=== PATIENT | female | born 2000 | race Caucasian/White ===

== ENCOUNTER 2024-03-30 12:02 | Emergency (ER) | payer SELFPAY ==
[2024-03-30 12:08] VITALS: BP 142/98; PULSE 89; TEMP 36.5; O2SAT 99; BMI 22.7
[2024-03-30 12:49] LABS: Basophils Absolute Auto 0.1 10^3/uL (0.0-0.1); Basophils Percent Auto 1.2 % (0.2-2.0); Eosinophils Absolute Auto 0.1 10^3/uL (0.0-0.7); Eosinophils Percent Auto 1.4 % (0.9-7.0); Hematocrit 41.4 % (36.0-48.0); Immature Granulocytes Abs Auto 0.01 10^3/uL (0.00-0.03); Immature Granulocytes Pct Auto 0.2 % (0.0-0.5); Lymphocytes Absolute Auto 0.9 10^3/uL (1.2-3.8); Lymphocytes Percent Auto 18.2 % (20.5-60.0); Mean Corpuscular HGB Conc 33.8 g/dL (29.9-35.2); Mean Corpuscular Hemoglobin 32.2 pg (26.7-34.0); Mean Corpuscular Volume 95.2 fL (81.0-99.0); Mean Platelet Volume 12.8 fL (9.5-13.5); Monocytes Absolute Auto 0.2 10^3/uL (0.3-0.8); Monocytes Percent Auto 3.3 % (1.7-12.0); Neutrophils Absolute Auto 3.7 10^3/uL (1.4-6.5); Neutrophils Percent Auto 75.7 % (43.0-75.0); Platelet Count 175 10^3/uL (150-450); Red Blood Count 4.35 10^6/uL (4.20-5.40); Red Cell Distribution Width 12.5 % (11.0-15.0); White Blood Count 4.8 10^3/uL (4.0-11.0)
[2024-03-30] MEDS: PROMETHAZINE HCL 12.5 MG in 0.9 % SODIUM CHLORIDE 50 ML 202 MG IV ×2 (12:52→13:36)
[2024-03-30] MEDS: ONDANSETRON PF 4 MG/2 ML VIAL IV (12:54)
[2024-03-30 13:01] LABS: Alanine Aminotransferase 22 U/L (14-59); Albumin Globulin Ratio 1.3; Albumin Level 4.5 g/dL (3.4-5.0); Alkaline Phosphatase 51 U/L (46-116); Anion Gap 14.4; Aspartate Amino Transferase 14 U/L (15-37); BUN Creatinine Ratio 11.9; Bilirubin Total 0.4 mg/dL (0.2-1.0); Calcium 8.8 mg/dL (8.5-10.1); Carbon Dioxide 23.1 mmol/L (21.0-32.0); Chloride 105 mmol/L (98-107); Estimated GFR (African America >60 (>=60); Estimated GFR (Non-African Ame >60 (>=60); Globulin 3.4 g/dL; Glucose 114 mg/dL (74-106); Potassium 3.5 mmol/L (3.5-5.1); Sodium 139 mmol/L (136-145); Total Protein 7.9 g/dL (6.4-8.2)
[2024-03-30] MEDS: 0.9 % SODIUM CHLORIDE 1,000 ML 999 ML IV (13:20)
[2024-03-30] MEDS: HYDROMORPHONE HCL 0.5 MG/0.5 ML SYRINGE IV (13:37)
[2024-03-30 14:01] LABS: Bilirubin Urine NEGATIVE (NEGATIVE); Blood Urine NEGATIVE (NEGATIVE); Clarity Urine CLEAR (CLEAR); Color Urine YELLOW (YELLOW); Glucose Urine UA NEGATIVE (NEGATIVE); Ketones Urine 15 mg/dL (NEGATIVE); Leukocyte Esterase Urine NEGATIVE (NEGATIVE); Nitrite Urine NEGATIVE (NEGATIVE); Protein Urine NEGATIVE (NEG/TRACE); Urobilinogen Urine 0.2 EU/dL (0.2-1.0); pH Urine 7.5 (5.0-9.0)
[2024-03-30 14:03] LABS: Urine Microscopic Indicated NO
[2024-03-30 14:04] LABS: HCG Qualitative Urine* NEGATIVE (NEGATIVE)
--- NOTE | 2024-03-30 14:50 | ED.GENADUL1 ---
HPI HPI - General Adult General Chief complaint: Abdominal Pain Stated complaint: VOMITING Time Seen by Provider: 03/30/24 12:19 Source: patient Mode of arrival: walk-in Limitations: no limitations History of Present Illness HPI narrative: This patient is here with her mother complaining of onset of abdominal pain nausea vomiting and diarrhea. Symptoms started today. She did eat some [place] food yesterday but was fine all evening. No other household or family members or friends ate the same food. She has not had fever. She has not been using any antibiotics recently. She has not had travel history. She does not think she is . She is not having urinary symptoms such as burning frequency urgency or dysuria. She has no history of gallbladder problems. She has not had past surgical history to the abdomen. She is otherwise healthy is not on any current medications. Related Data Home Medications ?Medication ?Instructions ?Recorded ?Confirmed No Known Home Medications 03/30/24 03/30/24 Allergies Allergy/AdvReac Type Severity Reaction Status Date / Time No Known Drug Allergies Allergy Verified 03/30/24 12:08 Opioid HPI Opioid Management Most Recent Opioid Data: Last ED Pain Assessment 03/30/24 12:25 Exam Narrative Exam Narrative: Awake alert uncomfortable. Examining her abdomen there is good bowel sounds in all quadrants. Beaulieu sign is negative there is no tenderness at McBurney's point there is no guarding rebound rigidity or peritoneal findings. HEENT shows no evidence of scleral icterus or anemia. Neurological examination is normal. Cardiorespiratory system is normal. Constitutional Vital Signs, click to edit/add: Last Vital Signs Temp 97.7 F 03/30/24 12:08 Pulse 89 03/30/24 12:08 Resp 18 03/30/24 12:08 BP 142/98 H 03/30/24 12:08 Pulse Ox 99 03/30/24 12:08 O2 Del Method Room Air 03/30/24 12:08 Course Vital Signs Vital signs: Vital Signs Temperature 97.7 F 03/30/24 12:08 Pulse Rate 89 03/30/24 12:08 Respiratory Rate 18 03/30/24 12:08 Blood Pressure 142/98 H 03/30/24 12:08 Pulse Oximetry 99 03/30/24 12:08 Oxygen Delivery Method Room Air 03/30/24 12:08 Temperature 97.7 F 03/30/24 12:08 Pulse Rate 89 03/30/24 12:08 Respiratory Rate 18 03/30/24 12:08 Blood Pressure 142/98 H 03/30/24 12:08 Pulse Oximetry 99 03/30/24 12:08 Oxygen Delivery Method Room Air 03/30/24 12:08 Medical Decision Making MDM Narrative Medical decision making narrative: Patient presents with simultaneous onset of vomiting and diarrhea. Findings are consistent with either foodborne illness or viral enteritis. She was treated for symptomatology and had very very good results here in the ER. She will be discharged for outpatient management. Lab Data Labs: Lab Results 03/30/24 03/30/24 Range/Units 12:23 12:25 WBC 4.8 (4.0-11.0) 10^3/uL RBC 4.35 (4.20-5.40) 10^6/uL Hgb 14.0 (12.0-16.0) g/dL Hct 41.4 (36.0-48.0) % MCV 95.2 (81.0-99.0) fL MCH 32.2 (26.7-34.0) pg MCHC 33.8 (29.9-35.2) g/dL RDW 12.5 (11.0-15.0) % Plt Count 175 (150-450) 10^3/uL MPV 12.8 (9.5-13.5) fL Neut % (Auto) 75.7 H (43.0-75.0) % Lymph % (Auto) 18.2 L (20.5-60.0) % Tripp % (Auto) 3.3 (1.7-12.0) % Eos % (Auto) 1.4 (0.9-7.0) % Baso % (Auto) 1.2 (0.2-2.0) % Neut # (Auto) 3.7 (1.4-6.5) 10^3/uL Lymph # (Auto) 0.9 L (1.2-3.8) 10^3/uL Tripp # (Auto) 0.2 L (0.3-0.8) 10^3/uL Eos # (Auto) 0.1 (0.0-0.7) 10^3/uL Baso # (Auto) 0.1 (0.0-0.1) 10^3/uL Abs Immat Gran (auto) 0.01 (0.00-0.03) 10^3/uL Imm/Tot Granulo (auto) 0.2 (0.0-0.5) % Sodium 139 (136-145) mmol/L Potassium 3.5 (3.5-5.1) mmol/L Chloride 105 (98-107) mmol/L Carbon Dioxide 23.1 (21.0-32.0) mmol/L Anion Gap 14.4 BUN 10.0 (7.0-18.0) mg/dL Creatinine 0.84 (0.55-1.02) mg/dL Est GFR ( Amer) >60 (>=60) Est GFR (Non-Af Amer) >60 (>=60) BUN/Creatinine Ratio 11.9 Glucose 114 H (74-106) mg/dL Calcium 8.8 (8.5-10.1) mg/dL Total Bilirubin 0.4 (0.2-1.0) mg/dL AST 14 L (15-37) U/L ALT 22 (14-59) U/L Alkaline Phosphatase 51 (46-116) U/L Total Protein 7.9 (6.4-8.2) g/dL Albumin 4.5 (3.4-5.0) g/dL Globulin 3.4 g/dL Albumin/Globulin Ratio 1.3 Urine Color Yellow (YELLOW) Urine Clarity Clear (CLEAR) Urine pH 7.5 (5.0-9.0) Ur Specific [place] 1.020 (1.005-1.025) Urine Protein Negative (NEG/TRACE) mg/dL Urine Glucose (UA) Negative (NEGATIVE) mg/dL Urine Ketones 15 A (NEGATIVE) mg/dL Urine Occult Blood Negative (NEGATIVE) Urine Nitrite Negative (NEGATIVE) Urine Bilirubin Negative (NEGATIVE) Urine Urobilinogen 0.2 (0.2-1.0) EU/dL Ur Leukocyte Esterase Negative (NEGATIVE) Urine HCG, Qual Negative (NEGATIVE) Discharge Plan Discharge Stand Alone Forms: Portal Instructions Chief Complaint: Abdominal Pain Clinical Impression: Gastroenteritis Patient Disposition: Home, Self-Care Time of Disposition Decision: 14:53 Prescriptions / Home Meds: No Action No Known Home Medications Print Language: Croatian Additional Instructions: Clear fluids only for the next 24 hours, slowly resume normal diet. May use [id number] Imodium and Zofran Referrals: Dahlia Tate [employer] [employer] [Primary Care Provider] - 1 week
== END 2024-03-30 15:09 | disposition home or self-care (01) ==
PROVIDERS: Emergency Provider Emergency Medicine Emergency Medical Services; PCP Nurse Practitioner
DX: K52.9 Noninfective gastroenteritis and colitis, unspecified (principal)
CPT/HCPCS: 36415; 80053; 81003; 84703; 85025; 96361; 96365; 96375; 99284; J1170

== ENCOUNTER 2024-07-01 11:38 | Emergency (ER) | payer OTHER, SELFPAY ==
--- OUTSIDE RECORDS SUMMARY | 2024-07-01 11:43 | XMS_ITS | CCD ---
Author Organization [facility] Inform ion Partnership [facility] Care Team Providers Care Lvn Name Role Phone MATTHEW ALFRED Attending Unavailable MATTHEW ALFRED Consulting Unavailable MATTHEW ALFRED Primary Care Unavailable MATTHEW ALFRED Admitting Unavailable LUIS HOLLAND Attending Unavailable NO PCP, NO PCP Primary Care Unavailable Problems Problem Classification Problem Date Documented Da te Episodic/Chronic Headache; including migraine (1 source) Other migraine, not intractable, without status migrainosus; Translations: [Other migraine, not intractable, without status migrainosus] Onset: 06-27-2024 Chronic Nausea and vomiting (2 sources) Vomiting, unspecified; Translations: [Nausea] Onset: 06-27-2024 Episodic Residual codes; unclassified (1 source) Other specified health status; Translations: [OTHER SPECIFIED HEALTH STATUS] Onset: 07-10-2022 Episodic Unclassified (1 source) Vomitting Onset: 06-27-2024 Results Test Name Value Interpretation Reference Range Facil ity CBC AND AUTO DIFFon 06-27-20 24 ABSOLUTE BASOPHIL 0.1 X10E9/L Normal 0.0-0.2 [facility] Comment on above: Performed By: #### C KEYONA CMP, 3040-3 #### [facility] ([id number]) [address] [place] [address] ABSOLUTE NEUTROPHIL 7.1 X10E9/L High 1.5-6.6 [facility] Comment on above: Performed By: #### C KEYONA, CMP, 3040-3 #### [facility] ([id number]) [address] [place] [address] Basophils/100 WBC (Bld) 0.7 % Normal [facility] Comment on above: Performed By: #### Dipika RAND CMP, 3 #### [facility] ([id number]) [address] [place] [address] 9[address]65 Eosinophils (Bld) [#/Vol] 0.1 10*3/uL Normal 0.0-0.4 [facility] Comment on above: Performed By: #### Dipika RAND CMP, 3039-3 #### [facility] ([id number]) [address] [place] [address] 69699 Eosinophils/100 WBC (Bld) 0.6 % Normal [facility] Comment on above: Performed By: #### Dipika RAND CMP, 3040-01 #### [facility] ([id number]) [address] [place] [address] 59399 Erythrocyte distribution width (RBC) [Ratio] 13.5 % Normal 11.5-15.0 [facility] Comment on above: Performed By: #### Dipika RAND CMP, 3040-01 #### [facility] ([id number]) [address] [place] [address] 77319 Hematocrit (Bld) [Volume fraction] 40.0 % Normal 35-47 [facility] Comment on above: Performed By: #### Dipika RAND CMP, 3040-01 #### [facility] ([id number]) [address] [place] [address] 74663 Hemoglobin (Bld) [Mass/Vol] 13.8 g/dL Normal 11.7-15.5 [facility] Comment on above: Performed By: #### Dipika RAND CMP, 3 #### [facility] ([id number]) [address] [place] [address] 95615 Lymphocytes (Bld) [#/Vol] 1.4 10*3/uL Normal 1.0-3.5 [facility] Comment on above: Performed By: #### Dipika RAND CMP, 3 #### [facility] ([id number]) [address] [place] [address] 32729 Lymphocytes/100 WBC (Bld) 15.3 % Normal [facility] Comment on above: Performed By: #### C KEYONA, CMP, 3039- #### [facility] ([id number]) [address] [place] [address] 28090 MCH (RBC) [Entitic mass] 32.8 pg Normal 27-34 [facility] Comment on above: Performed By: #### Dipika RAND, CMP, 3040-01 #### [facility] ([id number]) [address] [place] [address] 39876 MCHC (RBC) [Mass/Vol] 34.6 g/dL Normal 32-36 [facility] Comment on above: Performed By: #### Dipika RAND, CMP, 3 #### [facility] ([id number]) [address] [place] [address] 22754 MCV (RBC) [Entitic vol] 95 fL Normal 80-100 [facility] Comment on above: Performed By: #### Dipika RAND, CMP, 3040-01 #### [facility] ([id number]) [address] [place] [address] 35765 Monocytes (Bld) [#/Vol] 0.3 10*3/uL Normal 0-0.9 [facility] Comment on above: Performed By: #### Dipika RAND, CMP, 3 #### [facility] ([id number]) [address] [place] [address] 69072 Monocytes/100 WBC (Bld) 3.0 % Normal [facility] Comment on above: Performed By: #### Dipika RAND, CMP, 3 #### [facility] ([id number]) [address] [place] [address] 80139 Neutrophils/100 WBC (Bld) 80.4 % Normal [facility] Comment on above: Performed By: #### Dipika RAND CMP, 3039-3 #### [facility] ([id number]) [address] [place] [address] 52372 Platelet mean volume (Bld) [Entitic vol] 11.0 fL Normal 7-12 [facility] Comment on above: Performed By: #### Dipika RAND CMP, 3 #### [facility] ([id number]) [address] [place] [address] 85476 Platelets (Bld) [#/Vol] 204 10*3/uL Normal 150-450 [facility] Comment on above: Performed By: #### Dipika RAND CMP, 3 #### [facility] ([id number]) [address] [place] [address] 97510 RBC COUNT 4.22 X10E12/L Normal 3.80-5.20 [facility] Comment on above: Performed By: #### Dipika RAND CMP, 3 #### [facility] ([id number]) [address] [place] [address] 85057 WBC (Bld) [#/Vol] 8.8 10*3/uL Normal 4.0-11.0 [facility] Comment on above: Performed By: #### Dipika RAND CMP, 3 #### [facility] ([id number]) [address] [place] [address] 60151 COMPREHENSIVE METABOLIC PANE Yousuf 06-27-2024 Albumin [Mass/Vol] 5.2 g/dL Normal 3.2-5.3 [facility] Comment on above: Performed By: #### Dipika RAND CMP, 3039-3 #### [facility] ([id number]) [address] [place] [address] 65331 ALP [Catalytic activity/Vol] 41 U/L Normal 39-130 [facility] Comment on above: Performed By: #### C KEYONA CMP, 3 #### [facility] ([id number]) [address] [place] [address] 69601 ALT [Catalytic activity/Vol] 18 U/L Normal 0-31 [facility] Comment on above: Performed By: #### C BCA CMP, 3 #### [facility] ([id number]) [address] [place] [address] 12991 Anion gap [Moles/Vol] 13 mmol/L Normal 5-15 [facility] Comment on above: Performed By: #### Dipika RAND CMP, 3040-01 #### [facility] ([id number]) [address] [place] [address] 68793 AST [Catalytic activity/Vol] 22 U/L Normal 0-41 [facility] Comment on above: Performed By: #### C BCA, CMP, 3040-01 #### [facility] ([id number]) [address] [place] [address] 69581 Bilirubin [Mass/Vol] 0.8 mg/dL Normal 0.3-1.2 [facility] Comment on above: Performed By: #### Dipika BCA, CMP, 3040-01 #### [facility] ([id number]) [address] [place] [address] 51133 Calcium [Mass/Vol] 9.5 mg/dL Normal 8.5-10.5 [facility] Comment on above: Performed By: #### C BCA, CMP, 3 #### [facility] ([id number]) [address] [place] [address] 83022 Chloride [Moles/Vol] 104 mmol/L Normal 98-109 [facility] Comment on above: Performed By: #### Dipika BCA, CMP, 3040-3 #### [facility] ([id number]) [address] [place] [address] 37143 CO2 [Moles/Vol] 19 mmol/L Low 22-32 [facility] Comment on above: Performed By: #### C SARAH RAND, 3039-3 #### [facility] ([id number]) [address] [place] [address] 43733 Creatinine [Mass/Vol] 0.87 mg/dL Normal 0.40-1.00 [facility] Comment on above: Result Comment: METH OD TRACEABLE TO IDMS STANDARD Performed By: #### C SARAH RAND, 3040-01 #### [facility] ([id number]) [address] [place] [address] 44949 eGFR (CKD-EPI) NON-RACE DEPENDENT >90 Normal >59 [facility] Comment on above: Result Comment: Reported eGFR is based on the CKD-EPI 2020 equation that does not use a race coefficient. Performed By: #### C SARAH RAND, 3 #### [facility] ([id number]) [address] [place] [address] 76593 Glucose [Mass/Vol] 129 mg/dL High 65-99 [facility] Comment on above: Performed By: #### C SARAH RAND, 3040-01 #### [facility] ([id number]) [address] [place] [address] 63003 Potassium [Moles/Vol] 3.3 mmol/L Low 3.5-5.0 [facility] Comment on above: Performed By: #### C SARAH RAND, 3 #### [facility] ([id number]) [address] [place] [address] 97716 Protein [Mass/Vol] 8.1 g/dL High 6.0-8.0 [facility] Comment on above: Performed By: #### C SARAH RAND, 3039-3 #### [facility] ([id number]) [address] [place] [address] 72145 Sodium [Moles/Vol] 136 mmol/L Normal 134-146 [facility] Comment on above: Performed By: #### C SARAH RAND, 3040-3 #### [facility] ([id number]) [address] [place] [address] 28914 Urea nitrogen [Mass/Vol] 12 mg/dL Normal 5-23 [facility] Comment on above: Performed By: #### C SARAH RAND, 3040-3 #### [facility] ([id number]) [address] [place] [address] 33410 HCG ( test) Ql (U)o n 06-27-2024 Beta HCG ( test) Ql (U) Negative Normal NEG [facility] Comment on above: Performed By: #### 2 106-3 #### [facility] ([id number]) [address] [place] [address] 23900 LIPASEon 06-27-2024 Lipase [Catalytic activity/Vol] 27 U/L Normal 17-40 [facility] Comment on above: Performed By: #### C SARAH RAND, 3040-3 #### [facility] ([id number]) [address] [place] [address] 46871 URN MACROSCOPIC NURon 2023 BILIRUBIN ROSEANNA Negative Normal NEG [facility] Comment on above: Performed By: #### N UM #### [facility] ([id number]) [address] [place] [address] [place] [address] BLOOD/HGB ROSEANNA Negative Normal NEG [facility] Comment on above: Performed By: #### N UM #### [facility] ([id number]) [address] [place] [address] 53575 GLUCOSE ROSEANNA Negative Normal NEG [facility] Comment on above: Performed By: #### N UM #### [facility] ([id number]) [address] [place] [address] 96579 KETONES ROSEANNA >=160 Abnormal NEG [facility] Comment on above: Performed By: #### N UM #### [facility] ([id number]) [address] [place] [address] 54480 LEUKOCYTE ESTERASE ROSEANNA Negative Normal NEG [facility] Comment on above: Performed By: #### N UM #### [facility] ([id number]) [address] [place] [address] 40990 NITRITE ROSEANNA Negative Normal NEG [facility] Comment on above: Performed By: #### N UM #### [facility] ([id number]) [address] [place] [address] 16444 PH ROSEANNA 7.5 Normal 5.0-8.5 [facility] Comment on above: Performed By: #### N UM #### [facility] ([id number]) [address] [place] [address] 55689 PROTEIN ROSEANNA Trace Abnormal NEG [facility] Comment on above: Performed By: #### N UM #### [facility] ([id number]) [address] [place] [address] 34302 SPECIFIC GRAVITY ROSEANNA 1.020 Normal 1.003-1.035 [facility] Comment on above: Performed By: #### N UM #### [facility] ([id number]) [address] [place] [address] [place] [address] UROBILINOGEN ROSEANNA 0.2 eu/dL Normal <1.1 [facility] Comment on above: Performed By: #### N UM #### [facility] ([id number]) [address] [place] [address] 82800 HCG-BETA SUBUNIT QUANTon hCG,Beta Subunit,Qnt,Serum <1 Normal [facility] Comment on above: Result Comment: Fema le (Non-) 0 - 5 (Postmenopausal) 0 - 8 . Female () Weeks of Gestation 3 6 - 71 4 10 - 750 5 262 - 0310 6 819 - 05173 7 [phone] [phone] 8 13341 -[phone] 9 50768 -[phone] 10 13276 -[phone] 12 26830 -592169 14 58709 - 92687 15 82469 - 45247 16 6069 - 61608 17 5549 - 25566 18 2333 - 08329 Barbara ECLIA methodology Performed By: #### H CGSUB #### [facility] [address] [place] [address] Dr. Kassy Rincon CBC AUTO DIFFon 07-09-2022 BASO # 0.0 103/ul Normal 0.0-0.1 [facility] Comment on above: Performed By: #### C BC #### [facility] [address] [place] [address] Dr. Kassy Rincon Basophils/100 WBC (Bld) 0.8 % Normal 0.2-2.0 [facility] Comment on above: Performed By: #### C BC #### [facility] [address] [place] [address] Dr. Kassy Rincon EO # 0.1 103/ul Normal 0.0-0.7 [facility] Comment on above: Performed By: #### C BC #### [facility] [address] [place] [address] Dr. Kassy Rincon Eosinophils/100 WBC (Bld) 1.3 % Normal 0.9-7.0 [facility] Comment on above: Performed By: #### C BC #### [facility] [address] [place] [address] Dr. Kassy Rincon Erythrocyte distribution width (RBC) [Ratio] 13.9 % Normal 11.0-15.0 [facility] Comment on above: Performed By: #### C BC #### [facility] [address] [place] [address] Dr. Kassy Rincon Hematocrit (Bld) [Volume fraction] 39.1 % Normal 36.0-48.0 [facility] Comment on above: Performed By: #### C BC #### [facility] [address] [address] [address] Kassy Rincon Hemoglobin (Bld) [Mass/Vol] 12.6 g/dL Normal 12.0-16.0 [facility] Comment on above: Performed By: #### C BC #### [facility] [address] [address] [address] Kassy Rincon IG # 0.01 10e3/ul Normal 0.00-0.03 [facility] Comment on above: Performed By: #### C BC #### [facility] [address] [address] [address] Kassy Rincon IG % 0.3 % Normal 0.0-0.5 [facility] Comment on above: Performed By: #### C BC #### [facility] [address] [place] [address] Dr. Kassy Rincon LYMPH # 1.1 103/ul Critically low 1.2-3.8 [facility] Comment on above: Performed By: #### C BC #### [facility] [address] [address] [address] Kassy Rincon Lymphocytes/100 WBC (Bld) 30.3 % Normal 20.5-60.0 [facility] Comment on above: Performed By: #### C BC #### [facility] [address] [place] [address] Dr. Kassy Rincon MANUAL DIFF REQ NO Normal [facility] Comment on above: Performed By: #### C BC #### [facility] [address] [address] [address] Kassy Rincon MCH (RBC) [Entitic mass] 30.6 pg Normal 26.7-34.0 [facility] Comment on above: Performed By: #### C BC #### [facility] [address] [address] [address] Kassy Rincon MCHC (RBC) [Mass/Vol] 32.2 g/dL Normal 29.9-35.2 [facility] Comment on above: Performed By: #### C BC #### [facility] [address] [address] [address] Kassy Rincon MCV (RBC) [Entitic vol] 94.9 fL Normal 81.0-99.0 [facility] Comment on above: Performed By: #### C BC #### [facility] [address] [address] [address] Kassy Rincon MONO # 0.2 103/ul Critically low 0.3-0.8 [facility] Comment on above: Performed By: #### C BC #### [facility] [address] [address] [address] Kassy Rincon Monocytes/100 WBC (Bld) 6.2 % Normal 1.7-12.0 [facility] Comment on above: Performed By: #### C BC #### [facility] [address] [address] [address] Kassy Rincon NEUT # 2.3 103/ul Normal 1.4-6.5 [facility] Comment on above: Performed By: #### C BC #### [facility] [address] [address] [address] Kassy Rincon Neutrophils/100 WBC (Bld) 61.1 % Normal 43.0-75.0 [facility] Comment on above: Performed By: #### C BC #### [facility] [address] [place] [address] Dr. Kassy Rincon Platelet mean volume (Bld) [Entitic vol] 14.4 fL Critically high 9.5-13.5 [facility] Comment on above: Performed By: #### C BC #### [facility] [address] [place] [address] Dr. Kassy Rincon PLT 218 103/ul Normal 150-450 [facility] Comment on above: Performed By: #### C BC #### [facility] [address] [address] [address] Kassy Rincon RBC 4.12 106/ul Critically low 4.20-5.40 [facility] Comment on above: Performed By: #### C BC #### [facility] [address] [address] [address] Kassy Rincon WBC 3.7 103/ul Critically low 4.0-11.0 [facility] Comment on above: Performed By: #### C BC #### [facility] [address] [address] [address] Kassy Rincon FREE T4on 07-09-2022 Free T4 [Mass/Vol] 0.99 ng/dL Normal 0.76-1.46 [facility] Comment on above: Performed By: #### F T4, VITB12 #### [facility] [address] [address] [address] Kassy Rincon LIPID PROFILEon 07-09-2022 CHOL-HDL RATIO NORM SEE BELOW Normal [facility] Comment on above: Result Comment: 3.3 - 4.4 LOW RISK 4.4 - 7.1 AVERAGE RISK 7.1 - 11.0 MODERATE RISK >11.0 HIGH RISK Performed By: #### T SH, LIPID, CMP #### [facility] [address] [place] [address] Dr. Kassy Rincon Cholesterol [Mass/Vol] 144 mg/dL Normal <=200 [facility] Comment on above: Performed By: #### T SH, LIPID, CMP #### [facility] [address] [place] [address] Dr. Kassy Rincon Cholesterol in HDL [Mass/Vol] 59 mg/dL Normal 40-60 [facility] Comment on above: Performed By: #### T SH, LIPID, CMP #### [facility] [address] [address] [address] Kassy Rincon Cholesterol in LDL [Mass/Vol] 75.2 mg/dL Normal [facility] Comment on above: Performed By: #### T SH, LIPID, CMP #### [facility] [address] [address] [address] Kassy Rincon Cholesterol.total/C holesterol in HDL [Mass ratio] 2.4 {ratio} Normal [facility] Comment on above: Performed By: #### T SH, LIPID, CMP #### [facility] [address] [address] [address] Kassy Rincon HDL NORMAL > or = 60 mg/dl - LOW CARDIOVASCULAR RISK <40 mg/dl - HIGH CARDIOVASCULAR RISK Normal [facility] Comment on above: Performed By: #### T DAVONTE, LIPID, CMP #### [facility] [address] [address] [address] Kassy Rincon LDL CALC NORMAL SEE BELOW Normal [facility] Comment on above: Result Comment: <100 mg/dl OPTIMAL 100 - 129 mg/dl NEAR OR ABOVE OPTIMAL 130 - 159 mg/dl BORDERLINE HIGH 160 - 189 mg/dl HIGH >190 mg/dl VERY HIGH Performed By: #### T DAVONTE, LIPID, CMP #### [facility] [address] [place] [address] Dr. Kassy Rincon Triglyceride [Mass/Vol] 49 mg/dL Normal <=150 [facility] Comment on above: Performed By: #### T DAVONTE, LIPID, CMP #### [facility] [address] [place] [address] Dr. Kassy Rincon VLDL CALC 9.8 mg/dL Normal [facility] Comment on above: Performed By: #### T DAVONTE, LIPID, CMP #### [facility] [address] [place] [address] Dr. Kassy Rincon PROF 14(COMP METB)on 022 Albumin [Mass/Vol] 4.0 g/dL Normal 3.4-5.0 [facility] Comment on above: Performed By: #### T DAVONTE, LIPID, CMP #### [facility] [address] [place] [address] Dr. Kassy Rincon Albumin/Globulin [Mass ratio] 1.3 {ratio} Normal [facility] Comment on above: Performed By: #### T DAVONTE, LIPID, CMP #### [facility] [address] [place] [address] Dr. Kassy Rincon ALP [Catalytic activity/Vol] 53 U/L Normal 46-116 [facility] Comment on above: Performed By: #### T SH, LIPID, CMP #### [facility] [address] [place] [address] Dr. Kassy Rincon ALT [Catalytic activity/Vol] 21 U/L Normal 14-59 [facility] Comment on above: Performed By: #### T DAVONTE, LIPID, CMP #### [facility] [address] [place] [address] Dr. Kassy Rincon Anion gap [Moles/Vol] 14.1 mmol/L Normal [facility] Comment on above: Performed By: #### T DAVONTE, LIPID, CMP #### [facility] [address] [place] [address] Dr. Kassy Rincon AST [Catalytic activity/Vol] 18 U/L Normal 15-37 [facility] Comment on above: Performed By: #### T DAVONTE LIPID, CMP #### [facility] [address] [place] [address] Dr. Kassy Rincon Bilirubin [Mass/Vol] 0.4 mg/dL Normal 0.2-1.0 [facility] Comment on above: Performed By: #### T DAVONTE LIPID, CMP #### [facility] [address] [place] [address] Dr. Kassy Rincon Calcium [Mass/Vol] 8.9 mg/dL Normal 8.5-10.1 [facility] Comment on above: Performed By: #### T DAVONTE LIPID, CMP #### [facility] [address] [place] [address] Dr. Kassy Rincon Chloride [Moles/Vol] 102 mmol/L Normal 98-107 [facility] Comment on above: Performed By: #### T DAVONTE, LIPID, CMP #### [facility] [address] [place] [address] Dr. Kassy Rincon CO2 [Moles/Vol] 25.8 mmol/L Normal 21.0-32.0 [facility] Comment on above: Performed By: #### T DAVONTE, LIPID, CMP #### [facility] [address] [place] [address] Dr. Kassy Rincon Creatinine [Mass/Vol] 0.91 mg/dL Normal 0.55-1.02 [facility] Comment on above: Performed By: #### T DAVONTE, LIPID, CMP #### [facility] [address] [address] [address] Kassy Rincon EGFR-AF MALAGASY >60 Normal >=60 [facility] Comment on above: Performed By: #### T SH, LIPID, CMP #### [facility] [address] [address] [address] Kassy Rincon EGFR-NON AF MALAGASY >60 Normal >=60 [facility] Comment on above: Performed By: #### T SH, LIPID, CMP #### [facility] [address] [address] [address] Kassy Rincon Globulin (S) [Mass/Vol] 3.2 g/dL Normal [facility] Comment on above: Performed By: #### T SH, LIPID, CMP #### [facility] [address] [place] [address] Dr. Kassy Rincon Glucose [Mass/Vol] 82 mg/dL Normal 74-[address] [facility] Comment on above: Performed By: #### T SH, LIPID, CMP #### [facility] [address] [place] [address] Dr. Kassy Rincon Potassium [Moles/Vol] 3.9 mmol/L Normal 3.5-5.1 [facility] Comment on above: Performed By: #### T SH, LIPID, CMP #### [facility] [address] [place] [address] Dr. Kassy Rincon Protein [Mass/Vol] 7.2 g/dL Normal 6.4-8.[address] [facility] Comment on above: Performed By: #### T SH, LIPID, CMP #### [facility] [address] [place] [address] Dr. Kassy Rincon Sodium [Moles/Vol] 138 mmol/L Normal 136-[address] [facility] Comment on above: Performed By: #### T SH, LIPID, CMP #### [facility] [address] [place] [address] Dr. Kassy Rincon Urea nitrogen [Mass/Vol] 13.0 mg/dL Normal 7.0-18.0 [facility] Comment on above: Performed By: #### T SH, LIPID, CMP #### [facility] [address] [address] [address] Kassy Rincon Urea nitrogen/Creatinine [Mass ratio] 14.3 mg/mg Normal [facility] Comment on above: Performed By: #### T SH, LIPID, CMP #### [facility] [address] [address] [address] Kassy Rincon TSHon 07-09-2022 TSH 0.321 uIU/mL Critically low 0.358-3.740 [facility] Comment on above: Performed By: #### T SH, LIPID, CMP #### [facility] [address] [place] [address] Dr. Kassy Rincon UA RANDOM W/MICROSCOPICon BACTERIA NONE SEEN Normal NONE SEEN [facility] Comment on above: Performed By: #### U AMIC #### [facility] [address] [place] [address] Dr. Kassy Rincon Bilirubin Ql (U) Negative Normal NEGATIVE The [facility] Comment on above: Performed By: #### U AMIC #### [facility] [address] [place] [address] Dr. Kassy Rincon CAST NONE SEEN Normal NONE SEEN [facility] Comment on above: Performed By: #### U AMIC #### [facility] [address] [place] [address] Dr. Kassy Rincon Clarity (U) CLEAR Normal CLEAR [facility] Comment on above: Performed By: #### U AMIC #### [facility] [address] [place] [address] Dr. Kassy Rincon Color (U) LT. YELLOW Normal YELLOW [facility] Comment on above: Performed By: #### U AMIC #### [facility] [address] [place] [address] Dr. Kassy Rincon Crystals LM Nom (Urine sed) NONE SEEN Normal NONE SEEN [facility] Comment on above: Performed By: #### U AMIC #### [facility] [address] [place] [address] Dr. Kassy Rincon Epithelial cells LM Ql (Urine sed) FEW Abnormal NONE SEEN /RARE [facility] Comment on above: Performed By: #### U AMIC #### [facility] [address] [address] [address] Kassy Rincon Glucose Ql (U) Negative Normal NEGATIVE [facility] Comment on above: Performed By: #### U AMIC #### [facility] [address] [address] [address] Kassy Rincon Hemoglobin Ql (U) Negative Normal NEGATIVE [facility] Comment on above: Performed By: #### U AMIC #### [facility] [address] [address] [address] Kassy Rincon Ketones Ql (U) Negative Normal NEGATIVE [facility] Comment on above: Performed By: #### U AMIC #### [facility] [address] [address] [address] Kassy Rincon LEUKOCYTES Negative Normal NEGATIVE [facility] Comment on above: Performed By: #### U AMIC #### [facility] [address] [address] [address] Kassy Rincon MUCOUS NONE SEEN Normal NONE SEEN [facility] Comment on above: Performed By: #### U AMIC #### [facility] [address] [address] [address] Kassy Rincon Nitrite Ql (U) Negative Normal NEGATIVE [facility] Comment on above: Performed By: #### U AMIC #### [facility] [address] [address] [address] Kassy Rincon pH (U) 6.0 [pH] Normal 5-9 [facility] Comment on above: Performed By: #### U AMIC #### [facility] [address] [address] [address] Kassy Rincon RBC NONE SEEN Abnormal 0-2 [facility] Comment on above: Performed By: #### U AMIC #### [facility] [address] [place] [address] Dr. Kassy Rincon SPEC GRAVITY <=1.005 Abnormal 1.005-<=1.025 [facility] Comment on above: Performed By: #### U AMIC #### [facility] [address] [address] [address] Kassy Rincon UA PROTEIN Negative Normal NEGATIVE/ TRACE The [facility] Comment on above: Performed By: #### U AMIC #### [facility] [address] [address] [address] Kassy Rincon Urobilinogen Qn (U) 0.2 {Dia'U}/dL Normal 0.2 - 1. 0 [facility] Comment on above: Performed By: #### U AMIC #### [facility] [address] [address] [address] Kassy Rincon WBC 0-2 Abnormal NONE SEEN [facility] Comment on above: Performed By: #### U AMIC #### [facility] [address] [address] [address] Kassy Rincon VITAMIN B12on 07-09-2022 Cobalamin (Vitamin B12) [Mass/Vol] 295.0 pg/mL Normal 193.0-986.0 [facility] Comment on above: Performed By: #### F T4, VITB12 #### [facility] [address] [address] [address] Kassy Rincon Encounters Encounter Date Encounter Type Care Provider Facility Start: 06-27-2024 End: 06-28-2024 Emergency department patient visit LUIS HOLLAND [facility] Start: 07-10-2022 Encounter for genera l adult medical examination without abnormal findings MATTHEW ALFRED [facility] Start: 07-09-2022 End: 07-10-2022 ambulatory MATTHEW ALFRED Facility:[facility] Start: 07-09-2022 End: 07-10-2022 Encounter for general adult medical examination without abnormal findings MATTHEW ALFRED Facility:[facility] Payers Date Payer Category Payer Unknown [id number] 2018 Unknown [id number] 2001 Unknown [id number] 2001 Unknown [id number] 1959 Unknown [id number] Summary Purpose Family History No Family History Records FoundNo Family History Records Found Advance Directives No Advanced Directives Records FoundNo Advanced Directives Records Found Additional Source Comments INFORMATION SOURCE (unrecogn ized section and content) DATE CREATED AUTHOR 07/11/2022 [facility] DATE CREATED AUTHOR 'S CORINNE ATSRINATH 06/29/2024 [facility] FOR RECORDS PERTAINING TO PATIENTS WHO ARE OR HAVE BEEN ENROLLED IN A CHEMICAL DEPENDENCY/SUBSTANCEABUSE PROGRAM, SOME INFORMATION MAY BE OMITTED. This clinical summary was aggregated from multiple sources. Caution should be exercised in using it in the provision of clinical care. This summary normalizes information from multiple sources, and as a consequence, information in this document may materially change the coding, format and clinical context of patient data. In addition, data may be omitted in some cases. CLINICAL DECISIONS SHOULD BE BASED ON THE PRIMARY CLINICAL RECORDS. [facility]. provides no warranty or guarantee of the accuracy or completeness of information in this document.
[2024-07-01 11:45] VITALS: BP 143/89; PULSE 78; TEMP 36.4; O2SAT 99; BMI 21.9
--- NOTE | 2024-07-01 12:07 | XR_ITS ---
The [address] [address] Patient Name: PADMINI RAY MRN: [id number] date: 2000 Sex: F Assigned Patient Location: ED.MAIN Current Patient Location: ED.MAIN Accession/Order Number: [id number] Exam Date: 07/01/2024 13:15 Report Date: 07/01/2024 13:55 At the request of: GWYN MEI Procedure: XR acute abdomen series EXAM: XR acute abdomen series HISTORY: vomiting COMPARISON: None. TECHNIQUE: Upright chest x-ray, supine and upright abdomen KUB. FINDINGS: Chest x-ray demonstrates clear lungs. Normal heart size and mediastinum. No pleural effusion or pneumothorax. Nominal films without bowel distention. Fluid in the stomach, no air-fluid level seen small bowel or colon. No free air. Soft tissues negative without calcification. Mild scoliosis approximately 10 degrees convexity to left thoracic. No focal bone lesion. XR/XR acute abdomen series IMPRESSION: 1. Chest x-ray negative without acute disease. 2. Abdominal series with nonspecific gas pattern, no evidence of ileus or obstruction or free air. 3. Thoracic scoliosis. Electronically authenticated by: TITO GRUBBS Date: 07/01/2024 13:55
--- NOTE | 2024-07-01 12:09 | ED_ITS ---
HPI HPI - General Adult General Chief complaint: Abdominal Pain Stated complaint: VOMITING Time Seen by Provider: 07/01/24 11:53 Source: patient and friend Mode of arrival: walk-in Limitations: no limitations History of Present Illness HPI narrative: Intermittent nausea and vomiting since 06/27/24. No prior history of N/V. No associated diarrhea. No ill contacts. No urinary symptoms or flank pain. Admits to some upper abd cramping. No fever or chills. Was evaluated at [place] ED with blood and urine testing, denied having any imaging. Workup was negative including neg preg. LMP last week and was normal days/amount. No missed periods. Pt smokes marijuana daily - started about 4 years ago. No hx Crohn's or UC. No prior abd surgeries. Related Data Previous Rx's ?Medication ?Instructions ?Recorded ondansetron 4 mg disintegrating 4 mg PO Q6H PRN nausea and 07/01/24 tablet vomiting #20 tabs promethazine 25 mg tablet 25 mg PO TID PRN nausea and 07/01/24 vomiting #20 tabs Allergies Allergy/AdvReac Type Severity Reaction Status Date / Time No Known Drug Allergies Allergy Verified 07/01/24 11:51 Opioid HPI Opioid Management Most Recent Opioid Data: No Data to Display Exam Narrative Exam Narrative: Nurses notes and vital signs reviewed and patient is not hypoxic. afebrile General: Well-appearing and in no apparent distress. Skin: Warm, dry, no pallor noted. Neck: Supple, non-tender. No meningismus Eye: Pupils are equal, round and EOMI. No scleral icterus. Ears, Nose, Mouth, and Throat: Oral mucosa is moist Cardiovascular: Regular Rate and Rhythm without murmur, gallop or rub. Respiratory: No accessory muscle use or respiratory distress. Lungs are clear to auscultation, no wheezing, rales or rhonchi Back: No CVA tenderness Musculoskeletal: normal ROM GI: Abdomen is soft, non-distended. Normal bowel sounds. No masses appreciated. No tenderness to palpation. No rebound, guarding, or rigidity noted. Neurological: A&O x4. No cranial nerve dysfunction observed. No truncal ataxia. Moves all extremities. Sensation intact. Psychiatric: Cooperative and interactive. Normal mood and affect. Constitutional Vital Signs, click to edit/add: Last Vital Signs Temp 97.5 F L 07/01/24 11:45 Pulse 78 07/01/24 11:45 Resp 17 07/01/24 11:45 BP 143/89 H 07/01/24 11:45 Pulse Ox 99 07/01/24 11:45 O2 Del Method Room Air 07/01/24 11:45 Course Vital Signs Vital signs: Vital Signs Temperature 97.5 F L 07/01/24 11:45 Pulse Rate 78 07/01/24 11:45 Respiratory Rate 17 07/01/24 11:45 Blood Pressure 143/89 H 07/01/24 11:45 Pulse Oximetry 99 07/01/24 11:45 Oxygen Delivery Method Room Air 07/01/24 11:45 Temperature 97.5 F L 07/01/24 11:45 Pulse Rate 78 07/01/24 11:45 Respiratory Rate 07/01/24 11:45 Blood Pressure 143/89 H 07/01/24 11:45 Pulse Oximetry 99 07/01/24 11:45 Oxygen Delivery Method Room Air 07/01/24 11:45 Medical Decision Making MDM Narrative Medical decision making narrative: Peripheral IV established blood drawn and sent for testing. I also ordered urine to be sent for testing. I did request that the patient's emergency d epartment records from [place] be sent to us to evaluate her recent ED visit on August 27, 2024. She was ordered to be sent for x-rays of the abdomen. Labs revealed a slightly low potassium, Remaining results were negative including normal kidney function, negative LFTs and negative lipase. Serum hCG was negative so she was sent for x-rays of the abdomen, which was negative for acute GI abnormality. She was given oral potassium for repletion. Results discussed with the patient. No evidence of gallbladder abnormality based on exam or testing. No electrolyte or liver abnormalities. Preg neg. Abd xrays unremarkable. We discussed the interaction in some patients between marijuana use and nausea/vomiting. Patient prescribed phenergan for home use and instructed to stop all marijuana/THC product use. However, she informed us that she could not swallow pills so I prescribed some ODT ofran - she already has some from the ED visit to [place], but this way she has another prescription in case she uses up the first one. I stressed the importance of PCP follow up and possible GI referral f her condition continues. Lab Data Lab results reviewed: Yes I reviewed the patient's lab results Labs: Lab Results 07/01/24 Range/Units 12:15 WBC 6.8 (4.0-11.0) 10^3/uL RBC 4.25 (4.20-5.40) 10^6/uL Hgb 13.7 (12.0-16.0) g/dL Hct 39.8 (36.0-48.0) % MCV 93.6 (81.0-99.0) fL MCH 32.2 (26.7-34.0) pg MCHC 34.4 (29.9-35.2) g/dL RDW 12.8 (11.0-15.0) % Plt Count 183 (150-450) 10^3/uL MPV 12.5 (9.5-13.5) fL Neut % (Auto) 84.8 H (43.0-75.0) % Lymph % (Auto) 10.1 L (20.5-60.0) % [place] % (Auto) 3.8 (1.7-12.0) % Eos % (Auto) 0.4 L (0.9-7.0) % Baso % (Auto) 0.6 (0.2-2.0) % Neut # (Auto) 5.8 (1.4-6.5) 10^3/uL Lymph # (Auto) 0.7 L (1.2-3.8) 10^3/uL [place] # (Auto) 0.3 (0.3-0.8) 10^3/uL Eos # (Auto) 0.0 (0.0-0.7) 10^3/uL Baso # (Auto) 0.0 (0.0-0.1) 10^3/uL Abs Immat Gran (auto) 0.02 (0.00-0.03) 10^3/uL Imm/Tot Granulo (auto) 0.3 (0.0-0.5) % Sodium 138 (136-145) mmol/L Potassium 3.2 L (3.5-5.1) mmol/L Chloride 102 (98-107) mmol/L Carbon Dioxide 23.6 (21.0-32.0) mmol/L Anion Gap 15.6 BUN 7.0 (7.0-18.0) mg/dL Creatinine 0.87 (0.55-1.02) mg/dL Est GFR ( Amer) >60 (>=60) Est GFR (Non-Af Amer) >60 (>=60) BUN/Creatinine Ratio 8.0 Glucose 107 H (74-106) mg/dL Calcium 9.1 (8.5-10.1) mg/dL Magnesium 1.7 L (1.8-2.4) mg/dL Total Bilirubin 0.4 (0.2-1.0) mg/dL AST 12 L (15-37) U/L ALT 19 (14-59) U/L Alkaline Phosphatase 46 (46-116) U/L Total Protein 7.5 (6.4-8.2) g/dL Albumin 4.5 (3.4-5.0) g/dL Globulin 3.0 g/dL Albumin/Globulin Ratio 1.5 Lipase 20.0 (16.0-77.0) U/L Serum HCG, Qual Negative (NEGATIVE) Discharge Plan Discharge Stand Alone Forms: Portal Instructions Chief Complaint: Abdominal Pain Clinical Impression: Nausea & vomiting, Acute hypokalemia Patient Disposition: Home, Self-Care Time of Disposition Decision: 13:34 Prescriptions / Home Meds: New promethazine 25 mg tablet 25 mg PO TID PRN (Reason: nausea and vomiting) Qty: 20 0RF ondansetron 4 mg tablet,disintegrating 4 mg PO Q6H PRN (Reason: nausea and vomiting) Qty: 20 0RF Print Language: Nigerian Instructions: Hypokalemia (ED), Acute Nausea and Vomiting (ED) Referrals: Dahlia Tate NP [Primary Care Provider] - 1 week
[2024-07-01] MEDS: 0.9 % SODIUM CHLORIDE 1,000 ML 999 ML IV (12:28)
[2024-07-01 12:34] LABS: Basophils Percent Auto 0.6 % (0.2-2.0); Eosinophils Percent Auto 0.4 % (0.9-7.0); Hematocrit 39.8 % (36.0-48.0); Hemoglobin 13.7 g/dL (12.0-16.0); Immature Granulocytes Abs Auto 0.02 10^3/uL (0.00-0.03); Immature Granulocytes Pct Auto 0.3 % (0.0-0.5); Lymphocytes Absolute Auto 0.7 10^3/uL (1.2-3.8); Lymphocytes Percent Auto 10.1 % (20.5-60.0); Mean Corpuscular HGB Conc 34.4 g/dL (29.9-35.2); Mean Corpuscular Hemoglobin 32.2 pg (26.7-34.0); Mean Corpuscular Volume 93.6 fL (81.0-99.0); Mean Platelet Volume 12.5 fL (9.5-13.5); Monocytes Absolute Auto 0.3 10^3/uL (0.3-0.8); Monocytes Percent Auto 3.8 % (1.7-12.0); Neutrophils Absolute Auto 5.8 10^3/uL (1.4-6.5); Neutrophils Percent Auto 84.8 % (43.0-75.0); Platelet Count 183 10^3/uL (150-450); Red Blood Count 4.25 10^6/uL (4.20-5.40); Red Cell Distribution Width 12.8 % (11.0-15.0); White Blood Count 6.8 10^3/uL (4.0-11.0)
[2024-07-01 12:44] LABS: HCG Qualitative NEGATIVE (NEGATIVE); Internal Control Within Normal Limits
[2024-07-01 12:50] LABS: Alanine Aminotransferase 19 U/L (14-59); Albumin Globulin Ratio 1.5; Albumin Level 4.5 g/dL (3.4-5.0); Alkaline Phosphatase 46 U/L (46-116); Anion Gap 15.6; Aspartate Amino Transferase 12 U/L (15-37); Bilirubin Total 0.4 mg/dL (0.2-1.0); Calcium 9.1 mg/dL (8.5-10.1); Carbon Dioxide 23.6 mmol/L (21.0-32.0); Chloride 102 mmol/L (98-107); Estimated GFR (African America >60 (>=60); Estimated GFR (Non-African Ame >60 (>=60); Glucose 107 mg/dL (74-106); Potassium 3.2 mmol/L (3.5-5.1); Sodium 138 mmol/L (136-145); Total Protein 7.5 g/dL (6.4-8.2)
[2024-07-01 13:18] LABS: Magnesium 1.7 mg/dL (1.8-2.4)
[2024-07-01] MEDS: POTASSIUM BICARBONATE/CIT 25 MEQ TABLET EFF 50 MEQ PO (13:37)
[2024-07-01 13:58] VITALS: PULSE 87; O2SAT 98
== END 2024-07-01 13:59 | disposition home or self-care (01) ==
PROVIDERS: Emergency Provider Emergency Medicine; PCP Nurse Practitioner
DX: R11.2 Nausea with vomiting, unspecified (principal); E87.6 Hypokalemia; F12.90 Cannabis use, unspecified, uncomplicated
CPT/HCPCS: 36415; 74022; 80053; 83690; 83735; 84703; 85025; 96360; 99284

== ENCOUNTER 2025-08-28 11:19 | Emergency (ER) | payer BC, SELFPAY ==
[2025-08-28 11:25] VITALS: BP 139/106; PULSE 79; TEMP 36.3; O2SAT 100; BMI 21.9
--- OUTSIDE RECORDS SUMMARY | 2025-08-28 11:28 | XMS_ITS | Clinical Summary ---
Author Organization [facility] Address [address] [place] [address] Care Team Providers Care Rubber Mill Tender Name Role Phone Sher Easley MD Primary Care Provider [phone] Dahlia Tate NP Unavailable [phone] Allergies No known active allergies Medications busPIRone (Buspar) 5 MG tabletIndicatio ns:ABBEY (generalized anxiety disorder) Take 1 tablet (5 mg) by mouth in the morning and 1 tablet (5 mg) before bedtime. 60 tablet 1 07/19/2024 Active Active Problems Problem Noted Date Diagnosed Date ABBEY (generalized anxiety disorder) 07/19/2024 Assessment & Plan (07/19/2024 10:58 AM EDT): D/t possible prolonged QT interval, I will trial on Buspar BID Fu in 4 weeks Nausea and vomiting 07/19/2024 Assessment & Plan (07/19/2024 10:57 AM EDT): Unclear if component of anxiety No current symptoms at this time Prolonged Q-T interval on ECG 07/19/2024 Assessment & Plan (07/19/2024 10:59 AM EDT): At this point we will have pt see Cardiology for further evaluation Especially d/t if this truly exists will have an effect on medications we use for treatment Social History Tobacco Use Types Packs/Day Years Used Date Smoking Tobacco: Every Day Smokeless Tobacco: Never Tobacco Cessation:Ready to Q uit: Not Asked; Counseling Given: Not Answered Comments:vape Alcohol Use Standard Drinks/Week Comments Not Currently 0 (1 standard drink = 0.6 oz pur e alcohol) caffine: coffee 1-2 weekly PHQ-2 Answer Date Recorded Patient Health Questionnaire-2 Score 0 07/19/2024 Comments Unknown Sex and Gender Information Value Date Recorded Sex Assigned at Not on file Legal Sex Female 2:10 PM EDT Gender Identity Not on file Sexual Orientation Not on file Last Filed Vital Signs Vital Sign Reading Time Taken Comments Blood Pressure 120/88 07/19/2024 9:44 AM EDT Pulse 79 07/19/2024 9:44 AM EDT Temperature 36.7 C (98 F) 07/19/2024 9:44 AM EDT Respiratory Rate 18 07/19/2024 9:44 AM EDT Oxygen Saturation 100% 07/19/2024 9:44 AM EDT Inhaled Oxygen Concentration - - Weight 66.4 kg (146 lb 6.4 oz) 07/19/2024 9:44 A M EDT Height 170.2 cm (5' 7 ) 07/19/2024 9:44 AM EDT Body Mass Index 22.93 07/19/2024 9:44 AM EDT Plan of Treatment Not on file Care Teams Rubber Mill Tender Relationship Specialty Start Date End Date Sher Easley MD PCP - General Family Medicine 07/03/24 Dahlia Tate NP Nurse Practitioner Family Medicine 07/03/24
--- OUTSIDE RECORDS SUMMARY | 2025-08-28 11:28 | XMS_ITS | Encounter Summary ---
Author Organization [email or web address] tem Address [id number] [address] [place] [address] Care Team Providers Care Drop Hammer Mechanic Name Role Phone Dahlia Tate MACHINE LACER-DAMPER WORKER Primary Care Provider Encounter Details Date Type Department Care Team (Late st Contact Info) Description 10/25/2024 Telephone [facility] [address] [facility] [address] [place] [address] Alecia Arreguin CNA Social History Tobacco Use Types Packs/Day Years Used Date Smoking Tobacco: Every Day Vaping/E-cigarettes Smokeless Tobacco: Never Alcohol Use Standard Drinks/Week Comments Yes 0 (1 standard drink = 0.6 oz pur e alcohol) 1-2x a week twisted tea PHQ-2 Answer Date Recorded Total Score 8 07/31/2019 Childcare Answer Date Recorded Childcare Unknown 04/26/2019 Employment Answer Date Recorded Employment Unknown 04/26/2019 Hunger Screening Answer Date Recorded Within the past 12 months we worried whether our food would run out before we got money to buy more. Never True 09/16/2024 Within the past 12 months th e food we bought just didn't last and we didn't have money to get more. Never True 09/16/2024 Purpose - Life Answer Date Recorded Purpose and direction in life Unknown Comments No Sex and Gender Information Value Date Recorded Sex Assigned at Not on file Legal Sex Female 11:59 AM EDT Gender Identity Not on file Sexual Orientation Not on file documented as of this encounter Miscellaneous Notes * Telephone Encounter - Alecia Arreguin CNA - 10/25/2024 11:25 AM EST Received referral from ED for N&V diarrhea. Left message for patient to call and schedule new patient office visit. documented in this encounter Plan of Treatment Not on file documented as of this encounter Visit Diagnoses Not on filedocumented in this encounter Additional Health Concerns Assessment Noted Time PHQ-9 Depression Total Score: 8 07/31/20 19 9:23 AM EDT documented as of this encounter Care Teams Drop Hammer Mechanic Relationship Specialty Start Date End Date Dahlia Tate, MACHINE LACER-DAMPER WORKER PCP - General Nurse Practitioner 08/31/24 documented as of this encounter
--- OUTSIDE RECORDS SUMMARY | 2025-08-28 11:28 | XMS_ITS | Clinical Summary ---
Author Organization [facility] Address [address] [place] [address] Care Team Providers Care Manager Of Application Development Name Role Phone Dahlia Tate MD Primary Care Provider [phone] Allergies No known active allergies Medications busPIRone (Buspar) 5 mg tablet Take 5 mg by mouth twice a day. 07/19/2024 Active Family History Medical History Relation Name Comments Heart attack Maternal Grandfather Relation Name Status Comments Maternal Grandfather Social History Tobacco Use Types Packs/Day Years Used Date Smoking Tobacco: Never Assessed Smokeless Tobacco: Never Tobacco Cessation:Counseling Given: Not Answered Comments:Vapes daily Alcohol Use Standard Drinks/Week Comments Yes 0 (1 standard drink = 0.6 oz pur e alcohol) Socially Comments Unknown Sex and Gender Information Value Date Recorded Sex Assigned at Not on file Legal Sex Female 1:27 PM EDT Gender Identity Not on file Sexual Orientation Not on file Last Filed Vital Signs Vital Sign Reading Time Taken Comments Blood Pressure 110/76 08/22/2024 11:52 AM EDT Pulse 48 08/22/2024 11:52 AM EDT Temperature - - Respiratory Rate - - Oxygen Saturation 96% 08/22/2024 11:52 AM EDT Inhaled Oxygen Concentration - - Weight 65.8 kg (145 lb) 08/22/2024 11:52 AM EDT Height 170.2 cm (5' 7 ) 08/22/2024 11:52 AM EDT Body Mass Index 22.71 08/22/2024 11:52 AM EDT Plan of Treatment Health Maintenance Due Date Last Done Comments Depression Screening 2013 Varicella Vaccines (1 of 2 - 13+ 2-dose series) 2014 HPV Vaccines (1 - 3-dose series) 2016 Pneumococcal Vaccine: Pediatrics (0 to 5 Years) and At-Risk Patients (6 to 64 Years) (1 of 2 - PCV) 2020 Pap Smear 2022 Adult Tetanus 2023 COVID-19 Vaccine (1 - 2023-2 5 season) 2025 Influenza Vaccine (#1) 2025 Zoster Vaccines (1 of 2) 2051 Meningococcal Vaccine Completed 07/04/2018 Meningococcal B Vaccine Completed 07/31/20 19, 07/04/2018 HIB Vaccines Aged Out No longer eligi ble based on patient's age to complete this topic IPV Vaccines Aged Out No longer eligi ble based on patient's age to complete this topic Rotavirus Vaccines Aged Out No longer eligible based on patient's age to complete this topic Insurance [facility] Care Teams Manager Of Application Development Relationship Specialty Start Date End Date Dahlia Tate MD [address] [place] [id number] PCP - General Nurse Practitioner 08/22/24
--- OUTSIDE RECORDS SUMMARY | 2025-08-28 11:28 | XMS_ITS | Clinical Summary ---
Author Organization [facility] tem Address [id number] [address] [place] [address] Care Team Providers Care Can Tender Name Role Phone Dahlia Tate APRN-CONE MACHINE OPERATOR Primary Care Provider Allergies No known active allergies Medications etonogestrel (NEXPLANON SDRM) by subdermal route. Active scopolamine (TRANSDERM-SCOP) 1 mg/[address] 1 patch on the skin every third day. 5 patch 08/31/20 24 Active ondansetron ODT (ZOFRAN ODT) 4 mg disintegrating tablet Dissolve 1 tablet (4 mg total) on tongue every 8 (eight) hours as needed for nausea for up to 10 doses. 10 tablet 03/01/20 25 Active dicyclomine (BENTYL) 20 mg tablet Take 1 tablet (20 mg total) by mouth in the morning and 1 tablet (20 mg total) before bedtime. 20 tablet 05/21/20 25 Active prochlorperazine (COMPAZINE) 10 mg tablet Take 1 tablet (10 mg total) by mouth 2 (two) times a day as needed for nausea or vomiting. 10 tablet 05/21/20 25 Active promethazine (PHENERGAN) 25 mg suppository Insert 1 suppository (25 mg total) into the rectum every 6 (six) hours as needed for nausea or vomiting. 12 suppository 06/21/20 25 Active Active Problems Problem Noted Date Diagnosed Date Nausea vomiting and diarrhea 10/15/2024 Encounters Date Type Department Care Team Description 06/21/2025 8:33 AM EDT - 06/21/2025 12:06 PM EDT Emergency [facility] - Emergency [address] [place] [address] Roni Nevarez MD Cyclic vomiting syndrome (Primary Dx); Urinary tract infection without hematuria, site unspecified Discharge Disposition: Home 06/21/2025 Travel from Last 3 Months Immunizations Immunization Administration Dates Next Due Meningococcal B, Omv 07/31/2019,07/04/2018 Meningococcal MCV4P 07/04/2018 Social History Tobacco Use Types Packs/Day Years Used Date Smoking Tobacco: Every Day Vaping/E-cigarettes Smokeless Tobacco: Never Tobacco Cessation:Ready to Q uit: Not Asked; Counseling Given: Not Answered Alcohol Use Standard Drinks/Week Comments Yes 0 [...] got money to buy more. Never True 06/21/2025 Within the past 12 months th e food we bought just didn't last and we didn't have money to get more. Never True 06/21/2025 Purpose - Life Answer Date Recorded Purpose and direction in life Unknown Comments No Sex and Gender Information Value Date Recorded Sex Assigned at Not on file Legal Sex Female 11:59 AM EDT Gender Identity Not on file Sexual Orientation Not on file Last Filed Vital Signs Vital Sign Reading Time Taken Comments Blood Pressure 131/96 06/21/2025 11:49 AM EDT Pulse 83 06/21/2025 11:49 AM EDT Temperature 36.4 C (97.5 F) 06/21/2025 8:36 AM EDT Respiratory Rate 15 06/21/2025 11:49 AM EDT Oxygen Saturation 100% 06/21/2025 11:49 AM EDT Inhaled Oxygen Concentration - - Weight 63.5 kg (140 lb) 06/21/2025 8:36 AM EDT Height 170.2 cm (5' 7 ) 06/21/2025 8:36 AM EDT Body Mass Index 21.93 06/21/2025 8:36 AM EDT Plan of Treatment Health Maintenance Due Date Last Done Comments Tobacco Counseling 2001 Depression Screening 2013 Pap Smear 2022 DTaP,Tdap and Td Vaccines (7 - Td or Tdap) 07/06/2024 07/06/2014, 05/24/2007, 03/20/2003, Additional history exists Influenza Vaccine 07/16/2025 12/14/2014 Adult BMI Screening 06/21/2026 06/21/2025 Tobacco Screening 06/21/2026 06/21/2025 Medical Devices Not on file Procedures Procedure Name Priority Date/Time Associated Diagnosis Comments POCT , URINE (NUCG) Routine 06/21/2025 10:51 AM EDT POCT NURSING URINE MACROSCOPIC UA Routine 06/21/2025 10:49 AM EDT ER EXTRA URINE MARBLE STAT 06/21/2025 10:40 AM EDT ER EXTRA URINE CULTURE STAT 06/21/2025 10:40 AM EDT ER EXTRA URINE STAT 06/21/2025 10:40 AM EDT ECG 12-LEAD STAT 06/21/2025 9:48 AM EDT LAVENDER TOP STAT 06/21/2025 8:43 AM EDT PST TOP STAT 06/21/2025 8:43 AM EDT BLUE TOP STAT 06/21/2025 8:43 AM EDT MAGNESIUM STAT Add-on 06/21/2025 8:43 AM EDT LIPASE STAT Add-on 06/21/2025 8:43 AM EDT COMPREHENSIVE METABOLIC PANEL STAT Add-on 06/21/2025 8:43 AM EDT CBC WITH AUTO DIFFERENTIAL STAT Add-on 06/21/2025 8:43 AM EDT RAINBOW DRAW STAT 06/21/2025 8:43 AM EDT from Last 3 Months Results * POCT , urine (06/21/2025 10:51 AM EDT) POC Urine Negative Negative, Indeterminate 06/21/2025 10:46 AM EDT [facility] Urine 06/21/2025 10:5 1 AM EDT 06/21/2025 10:46 AM EDT us Roni Nevarez MD POINT OF CARE TEST ORDERABLES Final Result [facility] [address] [place] [address], [place] * (ABNORMAL) POCT Nursing Urine Macroscopic UA (06/21/2025 10:49 AM EDT) POC Urine Specific [place] 1.010 1.010, 1.015, 1.020, 1.025 06/21/2025 10:40 AM EDT [facility] POC Urine Leukocyte Esterase Negative Negative 06/21/2025 10:40 AM EDT [facility] POC Urine Nitrite Positive(A) Negative 06/21/2025 10:40 AM EDT [facility] POC Urine pH >=9.0(A) 5.0, 6.0, 6.5, 7.0, 7.5, 8.0, 8.5, 5.5 06/21/2025 10:40 AM EDT [facility] POC Urine Protein 100 mg/dL(A) Negative 06/21/2025 10:40 AM EDT [facility] POC Urine Glucose Negative Negative 06/21/2025 10:40 AM EDT [facility] POC Urine Ketones 40 mg/dL(A) Negative 06/21/2025 10:40 AM EDT [facility] POC Urine Urobilinogen 0.2 E.U./dL 06/21/2025 10:40 AM EDT [facility] POC Urine Bilirubin Negative Negative 06/21/2025 10:40 AM EDT [facility] POC Urine Blood/HGB Negative Negative 06/21/2025 10:40 AM EDT [facility] Urine 06/21/2025 10:4 9 AM EDT 06/21/2025 10:40 AM EDT us Roni Nevarez MD POINT OF CARE TEST ORDERABLES Final Result [address] [address], [place] * Extra Urine [place] (06/21/2025 10:40 AM EDT) Extra Tube Auto Resulted 06/21/2025 12:02 PM EDT [facility] Urine Urine specimen collection, clean catch / Unknown 06/21/2025 10:40 AM EDT 06/21/2025 10:44 AM EDT us Roni Nevarez MD URINE ORDERABLES Final Result Performing Organization Address City/[facility]/ZIP Co de Phone Number [address] [place] [address], [place] * Extra Urine Culture (06/21/2025 10:40 AM EDT) Extra Tube Auto Resulted 06/21/2025 12:02 PM EDT [facility] Urine Urine specimen collection, clean catch / Unknown 06/21/2025 10:40 AM EDT 06/21/2025 10:44 AM EDT us Roni Nevarez MD URINE ORDERABLES Final Result Performing Organization Address City/[facility]/ZIP Co de Phone Number [address] [place] [address], [place] * Extra Urine (06/21/2025 10:40 AM EDT) Extra Tube Auto Resulted 06/21/2025 12:02 PM EDT [facility] Urine Urine / Unknown 06/21/2025 1 0:40 AM EDT 06/21/2025 10:44 AM EDT us Roni Nevarez MD URINE ORDERABLES Final Result Performing Organization Address City/[facility]/ZIP Co de Phone Number [facility] [address] [facility] [place] [address], [place] * ECG 12 lead (06/21/2025 9:48 AM EDT) 06/21/2025 9:48 AM EDT Narrative [facility] - 06/30/2025 8:10 AM EDT us Roni Nevarez MD ECG ORDERABLES Final Result Performing Organization Address City/[facility] Co de Phone Number [email or web address] * CBC auto differential (06/21/2025 8:43 AM EDT) WBC 7.7 4 - 11 x10E9/L 06/21/2025 10:00 AM EDT [facility] RBC Count 4.23 3.8 - 5.2 X10E12/L 06/21/2025 10:00 AM EDT [facility] Hemoglobin 13.9 11.7 - 15.5 g/dL 06/21/2025 10:00 AM EDT [facility] Hematocrit 40.5 35 - 47 % 06/21/2025 10:00 AM EDT [facility] MCV 96 80 - 100 fL 06/21/2025 10:00 AM EDT [facility] MCH 33.0 27 - 34 pg 06/21/2025 10:00 AM EDT [facility] MCHC 34.4 32 - 36 g/dL 06/21/2025 10:00 AM EDT [facility] RDW 13.4 11.5 - 15 % 06/21/2025 10:00 AM EDT [facility] Platelet Count 198 150 - 450 X10E9/L 06/21/2025 10:00 AM EDT [facility] MPV 11.4 7 - 12 fL 06/21/2025 10:00 AM EDT [facility] Neutrophils % 74.9 % 06/21/2025 10:00 AM EDT [facility] Lymphocytes % 20.5 % 06/21/2025 10:00 AM EDT [facility] Monocytes % 3.7 % 06/21/2025 10:00 AM EDT [facility] Eosinophils % 0.2 % 06/21/2025 10:00 AM EDT [facility] Basophils % 0.7 % 06/21/2025 10:00 AM EDT [facility] Neutrophils Absolute (A) 5.7 1.5 - 6.6 10*3/uL 06/21/2025 10:00 AM EDT [facility] Lymphocytes Absolute 1.6 1.0 - 3.5 10*3/uL 06/21/2025 10:00 AM EDT [facility] Monocytes Absolute 0.3 0.0 - 0.9 10*3/uL 06/21/2025 10:00 AM EDT [facility] Eosinophils Absolute 0.0 0.0 - 0.4 10*3/uL 06/21/2025 10:00 AM EDT [facility] Basophils Absolute 0.1 0.0 - 0.2 10*3/uL 06/21/2025 10:00 AM EDT [facility] Differential Type AUTOMATED DIFFERENTIAL 06/21/2025 10:00 AM EDT [facility] Blood Venous blood / Unknown 06/21/2025 8:43 AM EDT 06/21/2025 8:46 AM EDT us Roni Nevarez MD LAB BLOOD ORDERABLES Final Res ult Performing Organization Address City/[facility]/ZIP Co de Phone Number [address] [place] [address], [place] * Lavender Top (06/21/2025 8:43 AM EDT) Extra Tube Auto Resulted 06/21/2025 10:01 AM EDT [facility] Blood Venous blood / Unknown 06/21/2025 8:43 AM EDT 06/21/2025 8:46 AM EDT us Roni Nevarez MD LAB BLOOD ORDERABLES Final Res ult Performing Organization Address [facility] Co de Phone Number [address] [place] [address], [place] * PST TOP (06/21/2025 8:43 AM EDT) Extra Tube Auto Resulted 06/21/2025 10:01 AM EDT [facility] Blood Venous blood / Unknown 06/21/2025 8:43 AM EDT 06/21/2025 8:46 AM EDT us Roni Nevarez MD LAB BLOOD ORDERABLES Final Res ult Performing Organization Address City/[facility]/ZIP Co de Phone Number [address] [place] [address], [place] * Light Blue Top (06/21/2025 8:43 AM EDT) Extra Tube Auto Resulted 06/21/2025 10:01 AM EDT [facility] Blood Venous blood / Unknown 06/21/2025 8:43 AM EDT 06/21/2025 8:46 AM EDT us Roni Nevarez MD LAB BLOOD ORDERABLES Final Res ult [address] [place] [address], [place] * Magnesium (06/21/2025 8:43 AM EDT) MAGNESIUM 1.8 1.8 - 2.6 mg/dL 06/21/2025 9:12 AM EDT [facility] Blood Venous blood / Unknown 06/21/2025 8:43 AM EDT 06/21/2025 8:46 AM EDT Roni Nevarez MD LAB BLOOD ORDERABLES Final Res ult Performing Organization Address City/[facility] Co de Phone Number [address] [place] [address], [place] * Lipase (06/21/2025 8:43 AM EDT) LIPASE 28 17 - 40 U/L 06/21/2025 9:12 AM EDT [facility] Blood Venous blood / Unknown 06/21/2025 8:43 AM EDT 06/21/2025 8:46 AM EDT Roni Nevarez MD LAB BLOOD ORDERABLES Final Res ult Performing Organization Address City/[facility] Co de Phone Number [address] [place] [address], [place] * (ABNORMAL) Comprehensive metabolic panel (06/21/2025 8:43 AM EDT) SODIUM 137 134 - 146 mmol/L 06/21/2025 9:12 AM EDT [facility] POTASSIUM 3.7 3.5 - 5.0 mmol/L 06/21/2025 9:12 AM EDT [facility] CHLORIDE 108 98 - 109 mmol/L 06/21/2025 9:12 AM EDT [facility] CARBON DIOXIDE 21(L) 22 - 32 mmol/L 06/21/2025 9:12 AM EDT [facility] ANION GAP 8 5 - 15 mmol/L 06/21/2025 9:12 AM EDT [facility] BLOOD UREA NITROGEN 11 5 - 23 mg/dL 06/21/2025 9:12 AM EDT [facility] CREATININE 0.71 0.40 - 1.00 mg/dL 06/21/2025 9:12 AM EDT [facility] Comment:METHOD TRACEABLE TO IDNJ STANDARD GLUCOSE 154(H) 65 - 99 mg/dL 06/21/2025 9:12 AM EDT [facility] CALCIUM 9.1 8.5 - 10.5 mg/dL 06/21/2025 9:12 AM EDT [facility] TOTAL PROTEIN 7.6 6.0 - 8.0 g/dL 06/21/2025 9:12 AM EDT [facility] ALBUMIN 4.9 3.2 - 5.3 g/dL 06/21/2025 9:12 AM EDT [facility] ALKALINE PHOSPHATASE 43 39 - 130 U/L 06/21/2025 9:12 AM EDT [facility] AST 25 <=41 U/L 06/21/2025 9:12 AM EDT [facility] ALT 22 <=31 U/L 06/21/2025 9:12 AM EDT [facility] BILIRUBIN,TOTAL 0.7 0.3 - 1.2 mg/dL 06/21/2025 9:12 AM EDT [facility] EGFR Non-Race Dependent >90 >=60 ml/min/1.7 3sq.m 06/21/2025 9:12 AM EDT [facility] Comment: eGFR not reported due to non-numeric value for Creatinine. Reported eGFR is based on the CKD-EPI 2020 equation that does not use a race coefficient. Blood Venous blood / Unknown 06/21/2025 8:43 AM EDT 06/21/2025 8:46 AM EDT us Roni Nevarez MD LAB BLOOD ORDERABLES Final Res ult [facility] [address] [facility] [place] [address], [place] from Last 3 Months Insurance ANTHEM Care Teams Can Tender Relationship Specialty Start Date End Date Dahlia Tate, MANAGER MANAGED CARE-CONE MACHINE OPERATOR PCP - General Nurse Practitioner 08/31/24
--- OUTSIDE RECORDS SUMMARY | 2025-08-28 11:28 | XMS_ITS | Encounter Summary ---
Author Organization [facility] Address [address] [place] [address] Care Team Providers Care Senior Php Developer Name Role Phone Sher Easley MD Primary Care Provider [phone] Dahlia Tate NP Unavailable [phone] Encounter Details Date Type Department Care Team ([facility] st Contact Info) Description 07/03/2024 Orders Only [facility] [address] [place] [address] Dahlia Tate NP [address] [place] [address] Social History Tobacco Use Types Packs/Day Years Used Date Smoking Tobacco: Never Assessed Comments Unknown Sex and Gender Information Value Date Recorded Sex Assigned at Not on file Legal Sex Female 2:10 PM EDT Gender Identity Not on file Sexual Orientation Not on file documented as of this encounter Plan of Treatment Not on file documented as of this encounter Procedures Procedure Name Priority Date/Time Associated Diagnosis Comments XR ABDOMEN ACUTE (PA CHEST) Routine 07/03/2024 2:27 PM EDT documented in this encounter Results * XR ABDOMEN ACUTE (PA CHEST) (07/03/2024 2:27 PM EDT) Anatomical Region Laterality Modality Radiographic [place] ging us Dahlia Tate NP IMG XR PROCEDURES Final Result documented in this encounter Visit Diagnoses Not on filedocumented in this encounter Care Teams Senior Php Developer Relationship Specialty Start Date End Date Sher Easley MD PCP - General Family Medicine 07/03/24 Dahlia Tate NP Nurse Practitioner Family Medicine 07/03/24 documented as of this encounter
--- OUTSIDE RECORDS SUMMARY | 2025-08-28 11:31 | XMS_ITS | CCD ---
Author Organization [facility] Inform ion Partnership [facility] Care Team Providers Care Principal Quality Engineer Name Role Phone MATTHEW TATE Attending Unavailable BEBETO, MATTHEW DAHLIA Consulting Unavailable AICHHOLSamuel, MATTHEW DAHLIA Primary Care Unavailable ANABELLHBETTY, MATTHEW DAHLIA Admitting Unavailable BEBETO DAHLIA Attending Unavailable Sher Easley MD Primary Care Provider [phone] Bebeto LOOM STOP CHECKER, Dahlia Unavailable LUIS PALMER Attending Unavailable LUIS HOLLAND Attending Unavailable NO PCP, NO PCP Primary Care Unavailable NO PCP, NO PCP Primary Care Unavailable QUINTIN KHALIL Attending Unavailable AICHBETTY, DAHLIA J Primary Care Unavailable BRIANA HERNANDEZ Attending Unavailable AICHBETTY, DAHLIA Ryan Primary Care Unavailable BRIANA HERNANDEZ Attending Unavailable AICHHOLZ, DAHLIA J Primary Care Unavailable PREMA BEASLEY Attending Unavailable AICHHOLSamuel, DAHLIA J Primary Care Unavailable ELOINA CORNEJO Attending Unavailable ANABELLHBETTY, DAHLIA J Primary Care Unavailable LUIS HOLLAND Attending Unavailable ANABELLHBETTY, DAHLIA J Primary Care Unavailable JUSTINA GAYTAN Attending Unavailable Medications Current Medications Medication Drug Class(es) Dates Sig (Normalized) Sig (Original) busPIRone hydrochloride 5 mg oral tablet (2 sources) Start: 07-19-2024 End: 08-18-2024 take 1 tablet by mouth in the morning busPIRone (Buspar) 5 MG tablet Indications: ABBEY (generalized anxiety disorder) (CMS/HCC) Take 1 tablet (5 mg) by mouth in the morning and 1 tablet (5 mg) before bedtime. 60 tablet 1 07/19/2024 08/18/2024 Active Problems Active Problems Problem Classification Problem Date Documented Da te Episodic/Chronic Anxiety disorders (4 sources) Generalized anxiety disorder; Translations: [Generalized anxiety disorder] Onset: 07-19-2024 07-19-2024 Chronic Conduction disorders (2 sources) Long QT syndrome; Translations: [Long QT syndrome] Onset: 08-22-2024 Chronic Headache; including migraine (1 source) Other migraine, not intractable, without status migrainosus; Translations: [Other migraine, not intractable, without status migrainosus] Onset: 06-27-2024 Chronic Nausea and vomiting (9 sources) Nausea and vomiting; Translations: [Nausea with vomiting, unspecified] Onset: 06-27-2024 07-19-2024 Episodic Residual codes; unclassified (1 source) Other specified health status; Translations: [OTHER SPECIFIED HEALTH STATUS] Onset: 07-10-2022 Episodic Unclassified (1 source) Cyclical vomiting syndrome unrelated to migraine; Translations: [Cyclical vomiting syndrome unrelated to migraine] Onset: 09-16-2024 Unclassified (1 source) Vomitting Onset: 06-27-2024 Urinary tract infections (1 source) Urinary tract infection, site not specified; Translations: [Urinary tract infection, site not specified] Onset: 06-21-2025 Episodic Past or Other Problems Problem Classification Problem Date Documented Da te Episodic/Chronic Cardiac dysrhythmias (1 source) Palpitations; Translations: [Palpitations] Onset: 4 Episodic Other gastrointestinal disorders (1 source) Diarrhea, unspecified; Translations: [Diarrhea, unspecified] Onset: 4 Episodic Other screening for suspected conditions (not mental disorders or infectious disease) (4 sources) Prolonged QT interval; Translations: [Abnormal electrocardiogram [ECG] [EKG]] Onset: 4 07-19-2024 Episodic Results Test Name Value Interpretation Reference Range Facil ity CBC WITH AUTO DIFFERENTIALon 06-21-2025 BASOPHILS ABSOLUTE COUNT (10*3/UL) BY AUTOMATED COUNT 0.1 10*3/uL Normal 0.0-0.2 [facility] Comment on above: Performed By: #### 2 106-3 #### [facility] ([id number]) [address] [place] [address], [place] [address] BASOPHILS RELATIVE PERCENT BY AUTOMATED COUNT 0.7 % Normal [facility] Comment on above: Performed By: #### 2 106-3 #### [facility] ([id number]) [address] [place] [address] 11770 CELLAVISION DIFFERENTIAL TYPE AUTOMATED DIFFERENTIAL Normal [facility] Comment on above: Performed By: #### 2 106-3 #### [facility] ([id number]) [address] [place] [address] 97806 Eosinophils (Bld) [#/Vol] 0.0 10*3/uL Normal 0.0-0.4 [facility] Comment on above: Performed By: #### 2 106-3 #### [facility] ([id number]) [address] [place] [address] 89828 EOSINOPHILS RELATIVE PERCENT BY AUTOMATED COUNT 0.2 % Normal [facility] Comment on above: Performed By: #### 2 106-3 #### [facility] ([id number]) [address] [place] [address] 61846 Erythrocyte distribution width (RBC) [Ratio] 13.4 % Normal 11.5-15 [facility] Comment on above: Performed By: #### 2 106-3 #### [facility] ([id number]) [address] [place] [address] 34472 Hematocrit (Bld) [Volume fraction] 40.5 % Normal 35-47 [facility] Comment on above: Performed By: #### 2 106-3 #### [facility] ([id number]) [address] [place] [address] 40841 Hemoglobin (Bld) [Mass/Vol] 13.9 g/dL Normal 11.7-15.5 [facility] Comment on above: Performed By: #### 2 106-3 #### [facility] ([id number]) [address] [place] [address] 59382 LYMPHOCYTES ABSOLUTE COUNT (10*3/UL) BY AUTOMATED COUNT 1.6 10*3/uL Normal 1.0-3.5 [facility] Comment on above: Performed By: #### 2 106-3 #### [facility] ([id number]) [address] [place] [address] 40434 LYMPHOCYTES RELATIVE PERCENT BY AUTOMATED COUNT 20.5 % Normal [facility] Comment on above: Performed By: #### 2 106-3 #### [facility] ([id number]) [address] [place] [address] 30975 MCH (RBC) [Entitic mass] 33.0 pg Normal 27-34 [facility] Comment on above: Performed By: #### 2 106-3 #### [facility] ([id number]) [address] [place] [address] 03024 MCHC (RBC) [Mass/Vol] 34.4 g/dL Normal 32-36 [facility] Comment on above: Performed By: #### 2 106-3 #### [facility] ([id number]) [address] [place] [address] 72970 MCV (RBC) [Entitic vol] 96 fL Normal 80-100 [facility] Comment on above: Performed By: #### 2 106-3 #### [facility] ([id number]) [address] [place] [address] 99680 MONOCYTES ABSOLUTE COUNT (10*3/UL) BY AUTOMATED COUNT 0.3 10*3/uL Normal 0.0-0.9 [facility] Comment on above: Performed By: #### 2 106-3 #### [facility] ([id number]) [address] [place] [address] 66608 MONOCYTES RELATIVE PERCENT BY AUTOMATED COUNT 3.7 % Normal [facility] Comment on above: Performed By: #### 2 106-3 #### [facility] ([id number]) [address] [place] [address], [place] [address] NEUTROPHILS ABSOLUTE COUNT BY AUTOMATED COUNT 5.7 10*3/uL Normal 1.5-6.6 [facility] Comment on above: Performed By: #### 2 106-3 #### [facility] ([id number]) [address] [place] [address] 16629 NEUTROPHILS RELATIVE PERCENT BY AUTOMATED COUNT 74.9 % Normal [facility] Comment on above: Performed By: #### 2 106-3 #### [facility] ([id number]) [address] [place] [address] 83537 Platelet mean volume (Bld) [Entitic vol] 11.4 fL Normal 7-12 [facility] Comment on above: Performed By: #### 2 106-3 #### [facility] ([id number]) [address] [place] [address] 39470 Platelets (Bld) [#/Vol] 198 10*3/uL Normal 150-450 [facility] Comment on above: Performed By: #### 2 106-3 #### [facility] ([id number]) [address] [place] [address] 94529 RBC COUNT 4.23 X10E12/L Normal 3.8-5.2 [facility] Comment on above: Performed By: #### 2 106-3 #### [facility] ([id number]) [address] [place] [address] 49065 WBC (Bld) [#/Vol] 7.7 10*3/uL Normal 4-11 [facility] Comment on above: Performed By: #### 2 106-3 #### [facility] ([id number]) [address] [place] [address] 06172 COMPREHENSIVE METABOLIC PANE Yousuf 06-21-2025 Albumin [Mass/Vol] 4.9 g/dL Normal 3.2-5.3 [facility] Comment on above: Performed By: #### 2 106-3 #### [facility] ([id number]) [address] [place] [address] 79039 ALP [Catalytic activity/Vol] 43 U/L Normal 39-130 [facility] Comment on above: Performed By: #### 2 106-3 #### [facility] ([id number]) [address] [place] [address] 29156 ALT [Catalytic activity/Vol] 22 U/L Normal <=31 [facility] Comment on above: Performed By: #### 2 106-3 #### [facility] ([id number]) [address] [place] [address] 66108 Anion gap [Moles/Vol] 8 mmol/L Normal 5-15 [facility] Comment on above: Performed By: #### 2 106-3 #### [facility] ([id number]) [address] [place] [address] 74970 AST [Catalytic activity/Vol] 25 U/L Normal <=41 [facility] Comment on above: Performed By: #### 2 106-3 #### [facility] ([id number]) [address] [place] [address] 95040 Bilirubin [Mass/Vol] 0.7 mg/dL Normal 0.3-1.2 [facility] Comment on above: Performed By: #### 2 106-3 #### [facility] ([id number]) [address] [place] [address] 34020 Calcium [Mass/Vol] 9.1 mg/dL Normal 8.5-10.5 [facility] Comment on above: Performed By: #### 2 106-3 #### [facility] ([id number]) [address] [place] [address] 00899 Chloride [Moles/Vol] 108 mmol/L Normal 98-109 [facility] Comment on above: Performed By: #### 2 106-3 #### [facility] ([id number]) [address] [place] [address] 49860 CO2 [Moles/Vol] 21 mmol/L Low 22-32 [facility] Comment on above: Performed By: #### 2 106-3 #### [facility] ([id number]) [address] [place] [address] 59695 Creatinine [Mass/Vol] 0.71 mg/dL Normal 0.40-1.00 [facility] Comment on above: Result Comment: METH OD TRACEABLE TO IDMS STANDARD Performed By: #### 2 106-3 #### [facility] ([id number]) [address] [place] [address] 17902 EGFR (CKD-EPI) NON-RACE DEPENDENT >^90 Normal >=60 [facility] Comment on above: Result Comment: eGFR not reported due to non-numeric value for Creatinine. Reported eGFR is based on the CKD-EPI 2021 equation that does not use a race coefficient. Performed By: #### 2 106-3 #### [facility] ([id number]) [address] [place] [address] 56627 Glucose [Mass/Vol] 154 mg/dL High 65-99 [facility] Comment on above: Performed By: #### 2 106-3 #### [facility] ([id number]) [address] [place] [address] 14614 Potassium [Moles/Vol] 3.7 mmol/L Normal 3.5-5.0 [facility] Comment on above: Performed By: #### 2 106-3 #### [facility] ([id number]) [address] [place] [address] 76445 Protein [Mass/Vol] 7.6 g/dL Normal 6.0-8.0 [facility] Comment on above: Performed By: #### 2 106-3 #### [facility] ([id number]) [address] [place] [address] 34926 Sodium [Moles/Vol] 137 mmol/L Normal 134-146 [facility] Comment on above: Performed By: #### 2 106-3 #### [facility] ([id number]) [address] [place] [address] 62396 Urea nitrogen [Mass/Vol] 11 mg/dL Normal 5-23 [facility] Comment on above: Performed By: #### 2 106-3 #### [facility] ([id number]) [address] [place] [address] 98016 LIPASEon 06-21-2025 Lipase [Catalytic activity/Vol] 28 U/L Normal 17-40 [facility] Comment on above: Performed By: #### 2 106-3 #### [facility] ([id number]) [address] [place] [address] 02102 MAGNESIUMon 06-21-2025 Magnesium [Mass/Vol] 1.8 mg/dL Normal 1.8-2.6 [facility] Comment on above: Performed By: #### 2 106-3 #### [facility] ([id number]) [address] [place] [address] 59788 POCT NURSING URINE MACROSCOP IC UAon 06-21-2025 BILIRUBIN ROSEANNA Negative Normal Negative [facility] Comment on above: Performed By: #### 2 106-3 #### [facility] ([id number]) [address] [place] [address] [place] [address] BLOOD/HGB ROSEANNA Negative Normal Negative [facility] Comment on above: Performed By: #### 2 106-3 #### [facility] ([id number]) [address] [place] [address] 71325 GLUCOSE ROSEANNA Negative Normal Negative [facility] Comment on above: Performed By: #### 2 106-3 #### [facility] ([id number]) [address] [place] [address] 13899 KETONES ROSEANNA 40 mg/dL Abnormal Negative [facility] Comment on above: Performed By: #### 2 106-3 #### [facility] ([id number]) [address] [place] [address] 02382 LEUKOCYTE ESTERASE ROSEANNA Negative Normal Negative [facility] Comment on above: Performed By: #### 2 106-3 #### [facility] ([id number]) [address] [place] [address] 36993 NITRITE ROSEANNA Positive Abnormal Negative [facility] Comment on above: Performed By: #### 2 106-3 #### [facility] ([id number]) [address] [place] [address] 09374 PH ROSEANNA >=9.0 Abnormal 5.0, 6.0, 6.5, 7.0, 7.5, 8.0, 8.5, 5.5 [facility] Comment on above: Performed By: #### 2 106-3 #### [facility] ([id number]) [address] [place] [address] 49072 PROTEIN ROSEANNA 100 mg/dL Abnormal Negative [facility] Comment on above: Performed By: #### 2 106-3 #### [facility] ([id number]) [address] [place] [address] 43493 SPECIFIC GRAVITY ROSEANNA 1.010 Normal 1.010, 1.015, 1.020, 1.025 [facility] Comment on above: Performed By: #### 2 106-3 #### [facility] ([id number]) [address] [place] [address] 26025 UROBILINOGEN ROSEANNA 0.2 E.U./dL Normal [facility] Comment on above: Performed By: #### 2 106-3 #### [facility] ([id number]) [address] [place] [address] 93178 POCT , URINE (NUCG) on 06-21-2025 Beta HCG ( test) Ql (U) Negative Normal Negative, Indeterminate [facility] Comment on above: Performed By: #### 2 106-3 #### [facility] ([id number]) [address] [place] [address] 07138 CBC WITH AUTO DIFFERENTIALon 05-21-2025 BASOPHILS ABSOLUTE COUNT (10*3/UL) BY AUTOMATED COUNT 0.1 10*3/uL Normal 0.0-0.2 [facility] Comment on above: Performed By: #### N UM #### [facility] ([id number]) [address] [place] [address] 77663 BASOPHILS RELATIVE PERCENT BY AUTOMATED COUNT 0.7 % Normal [facility] Comment on above: Performed By: #### N UM #### [facility] ([id number]) [address] [place] [address] 40109 CELLAVISION DIFFERENTIAL TYPE AUTOMATED DIFFERENTIAL Normal [facility] Comment on above: Performed By: #### N UM #### [facility] ([id number]) [address] [place] [address] 66410 Eosinophils (Bld) [#/Vol] 0.0 10*3/uL Normal 0.0-0.4 [facility] Comment on above: Performed By: #### N UM #### [facility] ([id number]) [address] [place] [address] 03825 EOSINOPHILS RELATIVE PERCENT BY AUTOMATED COUNT 0.1 % Normal [facility] Comment on above: Performed By: #### N UM #### [facility] ([id number]) [address] [place] [address] 62610 Erythrocyte distribution width (RBC) [Ratio] 13.9 % Normal 11.5-15 [facility] Comment on above: Performed By: #### N UM #### [facility] ([id number]) [address] [place] [address] 04293 Hematocrit (Bld) [Volume fraction] 40.0 % Normal 35-47 [facility] Comment on above: Performed By: #### N UM #### [facility] ([id number]) [address] [place] [address] 66562 Hemoglobin (Bld) [Mass/Vol] 13.8 g/dL Normal 11.7-15.5 [facility] Comment on above: Performed By: #### N UM #### [facility] ([id number]) [address] [place] [address] 32070 LYMPHOCYTES ABSOLUTE COUNT (10*3/UL) BY AUTOMATED COUNT 1.5 10*3/uL Normal 1.0-3.5 [facility] Comment on above: Performed By: #### N UM #### [facility] ([id number]) [address] [place] [address] 79484 LYMPHOCYTES RELATIVE PERCENT BY AUTOMATED COUNT 12.3 % Normal [facility] Comment on above: Performed By: #### N UM #### [facility] ([id number]) [address] [place] [address] 68268 MCH (RBC) [Entitic mass] 32.8 pg Normal 27-34 [facility] Comment on above: Performed By: #### N UM #### [facility] ([id number]) [address] [place] [address] 18030 MCHC (RBC) [Mass/Vol] 34.6 g/dL Normal 32-36 [facility] Comment on above: Performed By: #### N UM #### [facility] ([id number]) [address] [place] [address] 75861 MCV (RBC) [Entitic vol] 95 fL Normal 80-100 [facility] Comment on above: Performed By: #### N UM #### [facility] ([id number]) [address] [place] [address] 89451 MONOCYTES ABSOLUTE COUNT (10*3/UL) BY AUTOMATED COUNT 0.3 10*3/uL Normal 0.0-0.9 [facility] Comment on above: Performed By: #### N UM #### [facility] ([id number]) [address] [place] [address] 50814 MONOCYTES RELATIVE PERCENT BY AUTOMATED COUNT 2.4 % Normal [facility] Comment on above: Performed By: #### N UM #### [facility] ([id number]) [address] [place] [address] 56734 NEUTROPHILS ABSOLUTE COUNT BY AUTOMATED COUNT 10.2 10*3/uL High 1.5-6.6 [facility] Comment on above: Performed By: #### N UM #### [facility] ([id number]) [address] [place] [address] 31809 NEUTROPHILS RELATIVE PERCENT BY AUTOMATED COUNT 84.5 % Normal [facility] Comment on above: Performed By: #### N UM #### [facility] ([id number]) [address] [place] [address] 43176 Platelet mean volume (Bld) [Entitic vol] 10.4 fL Normal 7-12 [facility] Comment on above: Performed By: #### N UM #### [facility] ([id number]) [address] [place] [address] 92487 Platelets (Bld) [#/Vol] 200 10*3/uL Normal 150-450 [facility] Comment on above: Performed By: #### N UM #### [facility] ([id number]) [address] [place] [address] 93459 RBC COUNT 4.22 X10E12/L Normal 3.8-5.2 [facility] Comment on above: Performed By: #### N UM #### [facility] ([id number]) [address] [place] [address] 46236 WBC (Bld) [#/Vol] 12.0 10*3/uL High 4-11 [facility] Comment on above: Performed By: #### N UM #### [facility] ([id number]) [address] [place] [address] 43395 COMPREHENSIVE METABOLIC PANE Yousuf 05-21-2025 Albumin [Mass/Vol] 4.9 g/dL Normal 3.2-5.3 [facility] Comment on above: Performed By: #### N UM #### [facility] ([id number]) [address] [place] [address] 69918 ALP [Catalytic activity/Vol] 52 U/L Normal 39-130 [facility] Comment on above: Performed By: #### N UM #### [facility] ([id number]) [address] [place] [address] 27778 ALT [Catalytic activity/Vol] 21 U/L Normal <=31 [facility] Comment on above: Performed By: #### N UM #### [facility] ([id number]) [address] [place] [address] 81994 Anion gap [Moles/Vol] 14 mmol/L Normal 5-15 [facility] Comment on above: Performed By: #### N UM #### [facility] ([id number]) [address] [place] [address] [place] [address] AST [Catalytic activity/Vol] 28 U/L Normal <=41 [facility] Comment on above: Performed By: #### N UM #### [facility] ([id number]) [address] [place] [address] 19036 Bilirubin [Mass/Vol] 0.3 mg/dL Normal 0.3-1.2 [facility] Comment on above: Performed By: #### N UM #### [facility] ([id number]) [address] [place] [address] 48011 Calcium [Mass/Vol] 9.4 mg/dL Normal 8.5-10.5 [facility] Comment on above: Performed By: #### N UM #### [facility] ([id number]) [address] [place] [address] 71872 Chloride [Moles/Vol] 107 mmol/L Normal 98-109 [facility] Comment on above: Performed By: #### N UM #### [facility] ([id number]) [address] [place] [address] 97794 CO2 [Moles/Vol] 19 mmol/L Low 22-32 [facility] Comment on above: Performed By: #### N UM #### [facility] ([id number]) [address] [place] [address] 20105 Creatinine [Mass/Vol] 0.83 mg/dL Normal 0.40-1.00 [facility] Comment on above: Result Comment: METH OD TRACEABLE TO IDMS STANDARD Performed By: #### N UM #### [facility] ([id number]) [address] [place] [address] 96406 EGFR (CKD-EPI) NON-RACE DEPENDENT >^90 Normal >=60 [facility] Comment on above: Result Comment: eGFR not reported due to non-numeric value for Creatinine. Reported eGFR is based on the CKD-EPI 2021 equation that does not use a race coefficient. Performed By: #### N UM #### [facility] ([id number]) [address] [place] [address] 47455 Glucose [Mass/Vol] 107 mg/dL High 65-99 [facility] Comment on above: Performed By: #### N UM #### [facility] ([id number]) [address] [place] [address] Potassium [Moles/Vol] 3.2 mmol/L Low 3.5-5.0 [facility] Comment on above: Performed By: #### N UM #### [facility] ([id number]) [address] [place] [address] 60654 Protein [Mass/Vol] 7.6 g/dL Normal 6.0-8.0 [facility] Comment on above: Performed By: #### N UM #### [facility] ([id number]) [address] [place] [address] 13652 Sodium [Moles/Vol] 140 mmol/L Normal 134-146 [facility] Comment on above: Performed By: #### N UM #### [facility] ([id number]) [address] [place] [address] 22276 Urea nitrogen [Mass/Vol] 12 mg/dL Normal 5-23 [facility] Comment on above: Performed By: #### N UM #### [facility] ([id number]) [address] [place] [address] 95703 LIPASEon 05-21-2025 Lipase [Catalytic activity/Vol] 26 U/L Normal 17-40 [facility] Comment on above: Performed By: #### N UM #### [facility] ([id number]) [address] [place] [address] 47522 POCT NURSING URINE MACROSCOP IC UAon 05-21-2025 BILIRUBIN ROSEANNA Negative Normal Negative [facility] Comment on above: Performed By: #### N UM #### [facility] ([id number]) [address] [place] [address] 44300 BLOOD/HGB ROSEANNA Negative Normal Negative [facility] Comment on above: Performed By: #### N UM #### [facility] ([id number]) [address] [place] [address] 35151 GLUCOSE ROSEANNA Negative Normal Negative [facility] Comment on above: Performed By: #### N UM #### [facility] ([id number]) [address] [place] [address] [place] [address] KETONES ROSEANNA 40 mg/dL Abnormal Negative [facility] Comment on above: Performed By: #### N UM #### [facility] ([id number]) [address] [place] [address] [place] [address] LEUKOCYTE ESTERASE ROSEANNA Negative Normal Negative [facility] Comment on above: Performed By: #### N UM #### [facility] ([id number]) [address] [place] [address] 60977 NITRITE ROSEANNA Negative Normal Negative [facility] Comment on above: Performed By: #### N UM #### [facility] ([id number]) [address] [place] [address] 29277 PH ROSEANNA 8.5 Normal 5.0, 6.0, 6.5, 7.0, 7.5, 8.0, 8.5, 5.5 [facility] Comment on above: Performed By: #### N UM #### [facility] ([id number]) [address] [place] [address] 98693 PROTEIN ROSEANNA 30 mg/dL Abnormal Negative [facility] Comment on above: Performed By: #### N UM #### [facility] ([id number]) [address] [place] [address] [place] [address] SPECIFIC GRAVITY ROSEANNA 1.020 Normal 1.010, 1.015, 1.020, 1.025 [facility] Comment on above: Performed By: #### N UM #### [facility] ([id number]) [address] [place] [address] [place] [address] UROBILINOGEN ROSEANNA 0.2 E.U./dL Normal [facility] Comment on above: Performed By: #### N UM #### [facility] ([id number]) [address] [place] [address] 29276 POCT , URINE (NUCG) on 05-21-2025 Beta HCG ( test) Ql (U) Negative Normal Negative, Indeterminate [facility] Comment on above: Performed By: #### 2 106-3 #### [facility] ([id number]) [address] [place] [address] 25600 CBC AND AUTO DIFFon 03-01-20 25 ABSOLUTE BASOPHIL 0.1 X10E9/L Normal 0.0-0.2 [facility] Comment on above: Performed By: #### 3 040-3, CMP, CBCA #### [facility] ([id number]) [address] [place] [address] 32047 ABSOLUTE NEUTROPHIL 11.5 X10E9/L High 1.5-6.6 [facility] Comment on above: Performed By: #### 3 040-3, CMP, CBCA #### [facility] ([id number]) [address] [place] [address] 41501 Basophils/100 WBC (Bld) 0.4 % Normal [facility] Comment on above: Performed By: #### 3 040-3, CMP, CBCA #### [facility] ([id number]) [address] [place] [address] 93412 Eosinophils (Bld) [#/Vol] 0.1 10*3/uL Normal 0.0-0.4 [facility] Comment on above: Performed By: #### 3 040-3, CMP, CBCA #### [facility] ([id number]) [address] [place] [address] 51560 Eosinophils/100 WBC (Bld) 0.8 % Normal [facility] Comment on above: Performed By: #### 3 040-3, CMP, CBCA #### [facility] ([id number]) [address] [place] [address] 79922 Erythrocyte distribution width (RBC) [Ratio] 13.9 % Normal 11.5-15.0 [facility] Comment on above: Performed By: #### 3 040-3, CMP, CBCA #### [facility] ([id number]) [address] [place] [address] 34545 Hematocrit (Bld) [Volume fraction] 42.5 % Normal 35-47 [facility] Comment on above: Performed By: #### 3 040-3, CMP, CBCA #### [facility] ([id number]) [address] [place] [address] 80626 Hemoglobin (Bld) [Mass/Vol] 14.4 g/dL Normal 11.7-15.5 [facility] Comment on above: Performed By: #### 3 040-3, CMP, CBCA #### [facility] ([id number]) [address] [place] [address] 42920 Lymphocytes (Bld) [#/Vol] 2.2 10*3/uL Normal 1.0-3.5 [facility] Comment on above: Performed By: #### 3 040-3, CMP, CBCA #### [facility] ([id number]) [address] [place] [address] 38977 Lymphocytes/100 WBC (Bld) 15.4 % Normal [facility] Comment on above: Performed By: #### 3 040-3, CMP, CBCA #### [facility] ([id number]) [address] [place] [address] 95660 MCH (RBC) [Entitic mass] 32.6 pg Normal 27-34 [facility] Comment on above: Performed By: #### 3 040-3, CMP, CBCA #### [facility] ([id number]) [address] [place] [address] 67767 MCHC (RBC) [Mass/Vol] 34.0 g/dL Normal 32-36 [facility] Comment on above: Performed By: #### 3 040-3, CMP, CBCA #### [facility] ([id number]) [address] [place] [address] 70708 MCV (RBC) [Entitic vol] 96 fL Normal 80-100 [facility] Comment on above: Performed By: #### 3 040-3, CMP, CBCA #### [facility] ([id number]) [address] [place] [address] 58182 Monocytes (Bld) [#/Vol] 0.6 10*3/uL Normal 0-0.9 [facility] Comment on above: Performed By: #### 3 040-3, CMP, CBCA #### [facility] ([id number]) [address] [place] [address] 15809 Monocytes/100 WBC (Bld) 3.8 % Normal [facility] Comment on above: Performed By: #### 3 040-3, CMP, CBCA #### [facility] ([id number]) [address] [place] [address] 36442 Neutrophils/100 WBC (Bld) 79.6 % Normal [facility] Comment on above: Performed By: #### 3 040-3, CMP, CBCA #### [facility] ([id number]) [address] [place] [address] 44242 Platelet mean volume (Bld) [Entitic vol] 11.6 fL Normal 7-12 [facility] Comment on above: Performed By: #### 3 040-3, CMP, CBCA #### [facility] ([id number]) [address] [place] [address] 04546 Platelets (Bld) [#/Vol] 211 10*3/uL Normal 150-450 [facility] Comment on above: Performed By: #### 3 040-3, CMP, CBCA #### [facility] ([id number]) [address] [place] [address] 31933 RBC COUNT 4.43 X10E12/L Normal 3.80-5.20 [facility] Comment on above: Performed By: #### 3 040-3, CMP, CBCA #### [facility] ([id number]) [address] [place] [address] 14348 WBC (Bld) [#/Vol] 14.5 10*3/uL High 4.0-11.0 [facility] Comment on above: Performed By: #### 3 040-3, CMP, CBCA #### [facility] ([id number]) [address] [place] [address] 01080 COMPREHENSIVE METABOLIC PANE Yousuf 03-01-2025 Albumin [Mass/Vol] 4.8 g/dL Normal 3.2-5.3 [facility] Comment on above: Performed By: #### N UM #### [facility] ([id number]) [address] [place] [address] 35895 ALP [Catalytic activity/Vol] 46 U/L Normal 39-130 [facility] Comment on above: Performed By: #### N UM #### [facility] ([id number]) [address] [place] [address] 29518 ALT [Catalytic activity/Vol] 21 U/L Normal 0-31 [facility] Comment on above: Performed By: #### N UM #### [facility] ([id number]) [address] [place] [address] 36410 Anion gap [Moles/Vol] 11 mmol/L Normal 5-15 [facility] Comment on above: Performed By: #### N UM #### [facility] ([id number]) [address] [place] [address] 27158 AST [Catalytic activity/Vol] 26 U/L Normal 0-41 [facility] Comment on above: Performed By: #### N UM #### [facility] ([id number]) [address] [place] [address] 40784 Bilirubin [Mass/Vol] 0.7 mg/dL Normal 0.3-1.2 [facility] Comment on above: Performed By: #### N UM #### [facility] ([id number]) [address] [place] [address] 19931 Calcium [Mass/Vol] 8.8 mg/dL Normal 8.5-10.5 [facility] Comment on above: Performed By: #### N UM #### [facility] ([id number]) [address] [place] [address] 36170 Chloride [Moles/Vol] 105 mmol/L Normal 98-109 [facility] Comment on above: Performed By: #### N UM #### [facility] ([id number]) [address] [place] [address] 11045 CO2 [Moles/Vol] 21 mmol/L Low 22-32 [facility] Comment on above: Performed By: #### N UM #### [facility] ([id number]) [address] [place] [address] 72134 Creatinine [Mass/Vol] 0.86 mg/dL Normal 0.40-1.00 [facility] Comment on above: Result Comment: METH OD TRACEABLE TO IDMS STANDARD Performed By: #### N UM #### [facility] ([id number]) [address] [place] [address] 28391 eGFR (CKD-EPI) NON-RACE DEPENDENT >90 Normal >59 [facility] Comment on above: Result Comment: Reported eGFR is based on the CKD-EPI 2020 equation that does not use a race coefficient. Performed By: #### N UM #### [facility] ([id number]) [address] [place] [address] 26419 Glucose [Mass/Vol] 118 mg/dL High 65-99 [facility] Comment on above: Performed By: #### N UM #### [facility] ([id number]) [address] [place] [address] 11919 Potassium [Moles/Vol] 3.5 mmol/L Normal 3.5-5.0 [facility] Comment on above: Performed By: #### N UM #### [facility] ([id number]) [address] [place] [address] 31497 Protein [Mass/Vol] 8.0 g/dL Normal 6.0-8.0 [facility] Comment on above: Performed By: #### N UM #### [facility] ([id number]) [address] [place] [address] 38781 Sodium [Moles/Vol] 137 mmol/L Normal 134-146 [facility] Comment on above: Performed By: #### N UM #### [facility] ([id number]) [address] [place] [address] 69172 Urea nitrogen [Mass/Vol] 11 mg/dL Normal 5-23 [facility] Comment on above: Performed By: #### N UM #### [facility] ([id number]) [address] [place] [address] ABDOMEN AND PELVIS W CONT on 03-01-2025 CT ABDOMEN AND PELVIS W CONT CT ABDOMEN AND PELVIS W CONT CT ABDOMEN AND PELVIS W CONT: 03/01/2025 10:20 AM CLINICAL INFORMATION: pain, n/v/d TECHNIQUE: Multidetector spiral CT scan of the abdomen and pelvis was performed following the uneventful administration of nonionic intravenous contrast. Coronal and sagittal reformatted images were obtained and reviewed. Automated exposure control was utilized. Oral contrast: None. All CT scans at this facility use dose modulation, iterative reconstruction, and/or weight based dosing when appropriate to reduce radiation dose to as low as reasonably achievable. COMPARISON: CT abdomen and pelvis 08/31/2024 FINDINGS: Quality: Satisfactory Lower chest: * No pleural effusions in lung bases. Liver/spleen biliary: * There are peripheral low density areas in the right and left lobe of the liver, nonspecific, possibly due to focal fatty infiltration. * No focal lesions seen in spleen. * Nondistended gallbladder Adrenals: No focal lesions. Pancreas: No focal lesions. Kidneys & Bladder: * No focal lesions or hydronephrosis. * No bladder wall thickening. Lymph nodes and fluid collections: * No enlarged lymph nodes, abnormal fluid collections, or free air. Bowel: * No bowel dilatation. Cecum is low in the pelvis appendix is not identified. Vascular: * No abdominal aortic aneurysm. * Patent origins of celiac and SMA and main portal vein. Soft tissues and bones: * No acute bony abnormality. Miscellaneous: * Unremarkable uterus and adnexa for patient's age. IMPRESSION: * Ill-defined low attenuation changes in the peripheral aspects of the liver nonspecific. It could be due to fatty infiltration. Based on clinical laboratory findings, consider MRI for further evaluation. * No CT evidence for bowel obstruction. Finalized by Ashish Huffman MD on 03/01/2025 10:37 AM Normal [facility] HCG ( test) IA.rapi d Ql (S)on 03-01-2025 SERUM Negative Normal NEG [facility] Comment on above: Performed By: #### N UM #### [facility] ([id number]) [address] [place] [address] 21018 HCG ( test) Ql (U)o n 03-01-2025 Beta HCG ( test) Ql (U) Negative Normal NEG [facility] Comment on above: Performed By: #### N UM #### [facility] ([id number]) [address] [place] [address] 11195 LIPASEon 03-01-2025 Lipase [Catalytic activity/Vol] 26 U/L Normal 17-40 [facility] Comment on above: Performed By: #### N UM #### [facility] ([id number]) [address] [place] [address] [place] [address] URN MACROSCOPIC NURon 2024 BILIRUBIN ROSEANNA Negative Normal NEG [facility] Comment on above: Performed By: #### N UM #### [facility] ([id number]) [address] [place] [address], [place] [address] BLOOD/HGB ROSEANNA Negative Normal NEG [facility] Comment on above: Performed By: #### N UM #### [facility] ([id number]) [address] [place] [address], [place] [address] GLUCOSE ROSEANNA Negative Normal NEG [facility] Comment on above: Performed By: #### N UM #### [facility] ([id number]) [address] [place] [address], [place] [address] KETONES ROSEANNA 40 mg/dL Abnormal NEG [facility] Comment on above: Performed By: #### N UM #### [facility] ([id number]) [address] [place] [address] [place] [address] LEUKOCYTE ESTERASE ROSEANNA Negative Normal NEG [facility] Comment on above: Performed By: #### N UM #### [facility] ([id number]) [address] [place] [address], [place] [address] NITRITE ROSEANNA Positive Abnormal NEG [facility] Comment on above: Performed By: #### N UM #### [facility] ([id number]) [address] [place] [address] [place] [address] PH ROSEANNA 8.5 Normal 5.0-8.5 [facility] Comment on above: Performed By: #### N UM #### [facility] ([id number]) [address] [place] [address] [place] [address] PROTEIN ROSEANNA 100 mg/dL Abnormal NEG [facility] Comment on above: Performed By: #### N UM #### [facility] ([id number]) [address] [place] [address] 73675 SPECIFIC GRAVITY ROSEANNA 1.015 Normal 1.003-1.035 [facility] Comment on above: Performed By: #### N UM #### [facility] ([id number]) [address] [place] [address] 70776 UROBILINOGEN ROSEANNA 1.0 eu/dL Normal <1.1 [facility] Comment on above: Performed By: #### N UM #### [facility] ([id number]) [address] [place] [address] 21674 36on 11-03-2024 36 Pt informed will call back if they want to talk Normal [facility] AMYLASEon 10-15-2024 Amylase [Catalytic activity/Vol] 48 U/L Normal 28-100 [facility] Comment on above: Performed By: #### 3 040-3, CMP, CBCA #### [facility] ([id number]) [address] [place] [address] 40480 CBC AND AUTO DIFFon 10-15-20 24 ABSOLUTE BASOPHIL 0.1 X10E9/L Normal 0.0-0.2 [facility] Comment on above: Performed By: #### 3 040-3, CMP, CBCA #### [facility] ([id number]) [address] [place] [address] 92491 ABSOLUTE NEUTROPHIL 8.9 X10E9/L High 1.5-6.6 [facility] Comment on above: Performed By: #### 3 040-3, CMP, CBCA #### [facility] ([id number]) [address] [place] [address] 11220 Basophils/100 WBC (Bld) 0.5 % Normal [facility] Comment on above: Performed By: #### 3 040-3, CMP, CBCA #### [facility] ([id number]) [address] [place] [address] 20725 Eosinophils (Bld) [#/Vol] 0.0 10*3/uL Normal 0.0-0.4 [facility] Comment on above: Performed By: #### 3 040-3, CMP, CBCA #### [facility] ([id number]) [address] [place] [address] 50696 Eosinophils/100 WBC (Bld) 0.4 % Normal [facility] Comment on above: Performed By: #### 3 040-3, CMP, CBCA #### [facility] ([id number]) [address] [place] [address] 07914 Erythrocyte distribution width (RBC) [Ratio] 13.6 % Normal 11.5-15.0 [facility] Comment on above: Performed By: #### 3 040-3, CMP, CBCA #### [facility] ([id number]) [address] [place] [address] 41006 Hematocrit (Bld) [Volume fraction] 39.3 % Normal 35-47 [facility] Comment on above: Performed By: #### 3 040-3, CMP, CBCA #### [facility] ([id number]) [address] [place] [address] 13098 Hemoglobin (Bld) [Mass/Vol] 13.3 g/dL Normal 11.7-15.5 [facility] Comment on above: Performed By: #### 3 040-3, CMP, CBCA #### [facility] ([id number]) [address] [place] [address] 10527 Lymphocytes (Bld) [#/Vol] 1.6 10*3/uL Normal 1.0-3.5 [facility] Comment on above: Performed By: #### 3 040-3, CMP, CBCA #### [facility] ([id number]) [address] [place] [address] 95669 Lymphocytes/100 WBC (Bld) 14.7 % Normal [facility] Comment on above: Performed By: #### 3 040-3, CMP, CBCA #### [facility] ([id number]) [address] [place] [address] 45597 MCH (RBC) [Entitic mass] 32.5 pg Normal 27-34 [facility] Comment on above: Performed By: #### 3 040-3, CMP, CBCA #### [facility] ([id number]) [address] [place] [address] 63741 MCHC (RBC) [Mass/Vol] 33.9 g/dL Normal 32-36 [facility] Comment on above: Performed By: #### 3 040-3, CMP, CBCA #### [facility] ([id number]) [address] [place] [address] 69606 MCV (RBC) [Entitic vol] 96 fL Normal 80-100 [facility] Comment on above: Performed By: #### 3 040-3, CMP, CBCA #### [facility] ([id number]) [address] [place] [address] 94070 Monocytes (Bld) [#/Vol] 0.4 10*3/uL Normal 0-0.9 [facility] Comment on above: Performed By: #### 3 040-3, CMP, CBCA #### [facility] ([id number]) [address] [place] [address] 41944 Monocytes/100 WBC (Bld) 3.4 % Normal [facility] Comment on above: Performed By: #### 3 040-3, CMP, CBCA #### [facility] ([id number]) [address] [place] [address] 56107 Neutrophils/100 WBC (Bld) 81.0 % Normal [facility] Comment on above: Performed By: #### 3 040-3, CMP, CBCA #### [facility] ([id number]) [address] [place] [address] 46929 Platelet mean volume (Bld) [Entitic vol] 11.6 fL Normal 7-12 [facility] Comment on above: Performed By: #### 3 040-3, CMP, CBCA #### [facility] ([id number]) [address] [place] [address] 81402 Platelets (Bld) [#/Vol] 212 10*3/uL Normal 150-450 [facility] Comment on above: Performed By: #### 3 040-3, CMP, CBCA #### [facility] ([id number]) [address] [place] [address] 38664 RBC COUNT 4.09 X10E12/L Normal 3.80-5.20 [facility] Comment on above: Performed By: #### 3 040-3, CMP, CBCA #### [facility] ([id number]) [address] [place] [address] 34349 WBC (Bld) [#/Vol] 11.0 10*3/uL Normal 4.0-11.0 [facility] Comment on above: Performed By: #### 3 040-3, CMP, CBCA #### [facility] ([id number]) [address] [place] [address] 68604 COMPREHENSIVE METABOLIC PANE [facility] 10-15-2024 Albumin [Mass/Vol] 5.0 g/dL Normal 3.2-5.3 [facility] Comment on above: Performed By: #### 3 040-3, CMP, CBCA #### [facility] ([id number]) [address] [place] [address] 50406 ALP [Catalytic activity/Vol] 43 U/L Normal 39-130 [facility] Comment on above: Performed By: #### 3 040-3, CMP, CBCA #### [facility] ([id number]) [address] [place] [address] 86723 ALT [Catalytic activity/Vol] 16 U/L Normal 0-31 [facility] Comment on above: Performed By: #### 3 040-3, CMP, CBCA #### [facility] ([id number]) [address] [place] [address] 27813 Anion gap [Moles/Vol] 14 mmol/L Normal 5-15 [facility] Comment on above: Performed By: #### 3 040-3, CMP, CBCA #### [facility] ([id number]) [address] [place] [address] 44255 AST [Catalytic activity/Vol] 20 U/L Normal 0-41 [facility] Comment on above: Performed By: #### 3 040-3, CMP, CBCA #### [facility] ([id number]) [address] [place] [address] 31189 Bilirubin [Mass/Vol] 0.7 mg/dL Normal 0.3-1.2 [facility] Comment on above: Performed By: #### 3 040-3, CMP, CBCA #### [facility] ([id number]) [address] [place] [address] 39755 Calcium [Mass/Vol] 9.6 mg/dL Normal 8.5-10.5 [facility] Comment on above: Performed By: #### 3 040-3, CMP, CBCA #### [facility] ([id number]) [address] [place] [address] [place] [address] Chloride [Moles/Vol] 107 mmol/L Normal 98-109 [facility] Comment on above: Performed By: #### 3 040-3, CMP, CBCA #### [facility] ([id number]) [address] [place] [address] 11104 CO2 [Moles/Vol] 20 mmol/L Low 22-32 [facility] Comment on above: Performed By: #### 3 040-3, SARAH, CBCA #### [facility] ([id number]) [address] [place] [address] 13767 Creatinine [Mass/Vol] 0.67 mg/dL Normal 0.40-1.00 [facility] Comment on above: Result Comment: METH OD TRACEABLE TO IDMS STANDARD Performed By: #### 3 040-3, SARAH, CBCA #### [facility] ([id number]) [address] [place] [address] [id number] eGFR (CKD-EPI) NON-RACE DEPENDENT >90 Normal >59 [facility] Comment on above: Result Comment: Reported eGFR is based on the CKD-EPI 2020 equation that does not use a race coefficient. Performed By: #### 3 040-3, SARAH, CBCA #### [facility] ([id number]) [address] [place] [address] [id number] Glucose [Mass/Vol] 133 mg/dL High 65-99 [facility] Comment on above: Performed By: #### 3 040-3, SARAH, CBCA #### [facility] ([id number]) [address] [place] [address] 32850 Potassium [Moles/Vol] 3.6 mmol/L Normal 3.5-5.0 [facility] Comment on above: Performed By: #### 3 040-3, SARAH, CBCA #### [facility] ([id number]) [address] [place] [address] 09106 Protein [Mass/Vol] 7.9 g/dL Normal 6.0-8.0 [facility] Comment on above: Performed By: #### 3 040-3, SARAH, CBCA #### [facility] ([id number]) [address] [place] [address] 89558 Sodium [Moles/Vol] 141 mmol/L Normal 134-146 [facility] Comment on above: Performed By: #### 3 040-3, SARAH, CBCA #### [facility] ([id number]) [address] [place] [address] 11243 Urea nitrogen [Mass/Vol] 11 mg/dL Normal 5-23 [facility] Comment on above: Performed By: #### 3 040-3, SARAH, CBCA #### [facility] ([id number]) [address] [place] [address] 64821 HCG ( test) Ql (U)o n 10-15-2024 Beta HCG ( test) Ql (U) Negative Normal NEG [facility] Comment on above: Performed By: #### 3 040-3SARAH CBCMoustapha #### [facility] ([id number]) [address] [place] [address] 02203 URINE CULTUREon 10-15-2024 Bacteria identified Cx Nom (U) CULTURE RESULTS >100,000 ORGANISMS/mL ESCHERICHIA COLI [ S = SUSCEPTIBLE R = RESISTANT I = INTERMEDIATE S-DO = Susceptible-dose dependent NS = Non-suscceptible NO = No Interpretation ] Organism: ESCHERICHIA COLI Antibiotic Interpretation JANINA Status AMPICILLIN S <=2 F AMP/SULBACTAM S <=2/1 F CEFAZOLIN S <=4 F CEFTRIAXONE S <=0.25 F CIPROFLOXACIN S <=0.25 F GENTAMICIN S <=1 F LEVOFLOXACIN S <=0.12 F NITROFURANTOIN S <=16 F PIPERACIL/TAZOBACTAM S <=4 F TOBRAMYCIN S <=1 F TRIMETH/SULFAMETHOXA ZOLE S <=1/19 F Susceptible [facility] Comment on above: Performed By: #### 3 040-3, SARAH, CBCA #### [facility] ([id number]) [address] [place] [address] 49305 URN MACROSCOPIC NURon 2023 BILIRUBIN ROSEANNA Negative Normal NEG [facility] Comment on above: Performed By: #### 3 040-3, SARAH, CBCA #### [facility] ([id number]) [address] [place] [address] [place] [address] BLOOD/HGB ROSEANNA MODERATE Abnormal NEG [facility] Comment on above: Performed By: #### 3 040-3, CMP, CBCA #### [facility] ([id number]) [address] [place] [address] 44990 GLUCOSE ROSEANNA Negative Normal NEG [facility] Comment on above: Performed By: #### 3 040-3, CMP, CBCA #### [facility] ([id number]) [address] [place] [address] 84392 KETONES ROSEANNA 80 mg/dL Abnormal NEG [facility] Comment on above: Performed By: #### 3 040-3, CMP, CBCA #### [facility] ([id number]) [address] [place] [address] 66686 LEUKOCYTE ESTERASE ROSEANNA Negative Normal NEG [facility] Comment on above: Performed By: #### 3 040-3, CMP, CBCA #### [facility] ([id number]) [address] [place] [address] 98920 NITRITE ROSEANNA Positive Abnormal NEG [facility] Comment on above: Performed By: #### 3 040-3, CMP, CBCA #### [facility] ([id number]) [address] [place] [address] 32921 PH ROSEANNA 7.0 Normal 5.0-8.5 [facility] Comment on above: Performed By: #### 3 040-3, CMP, CBCA #### [facility] ([id number]) [address] [place] [address] 51960 PROTEIN ROSEANNA 100 mg/dL Abnormal NEG [facility] Comment on above: Performed By: #### 3 040-3, CMP, CBCA #### [facility] ([id number]) [address] [place] [address] 73654 SPECIFIC GRAVITY ROSEANNA 1.025 Normal 1.003-1.035 [facility] Comment on above: Performed By: #### 3 040-3, CMP, CBCA #### [facility] ([id number]) [address] [place] [address] 65460 UROBILINOGEN ROSEANNA 0.2 eu/dL Normal <1.1 [facility] Comment on above: Performed By: #### 3 040-3, CMP, CBCA #### [facility] ([id number]) [address] [place] [address] 72249 CBC AND AUTO DIFFon 09-16-20 24 ABSOLUTE BASOPHIL 0.0 X10E9/L Normal 0.0-0.2 [facility] Comment on above: Performed By: #### 3 040-3, CMP, CBCA #### [facility] ([id number]) [address] [place] [address] 12997 ABSOLUTE NEUTROPHIL 4.5 X10E9/L Normal 1.5-6.6 [facility] Comment on above: Performed By: #### 3 040-3, CMP, CBCA #### [facility] ([id number]) [address] [place] [address] 26428 Basophils/100 WBC (Bld) 0.6 % Normal [facility] Comment on above: Performed By: #### 3 040-3, CMP, CBCA #### [facility] ([id number]) [address] [place] [address] 76947 Eosinophils (Bld) [#/Vol] 0.0 10*3/uL Normal 0.0-0.4 [facility] Comment on above: Performed By: #### 3 040-3, CMP, CBCA #### [facility] ([id number]) [address] [place] [address] 02679 Eosinophils/100 WBC (Bld) 0.3 % Normal [facility] Comment on above: Performed By: #### 3 040-3, CMP, CBCA #### [facility] ([id number]) [address] [place] [address] 74999 Erythrocyte distribution width (RBC) [Ratio] 13.4 % Normal 11.5-15.0 [facility] Comment on above: Performed By: #### 3 040-3, CMP, CBCA #### [facility] ([id number]) [address] [place] [address] 63681 Hematocrit (Bld) [Volume fraction] 36.4 % Normal 35-47 [facility] Comment on above: Performed By: #### 3 040-3, CMP, CBCA #### [facility] ([id number]) [address] [place] [address] 02083 Hemoglobin (Bld) [Mass/Vol] 12.3 g/dL Normal 11.7-15.5 [facility] Comment on above: Performed By: #### 3 040-3, CMP, CBCA #### [facility] ([id number]) [address] [place] [address] 05425 Lymphocytes (Bld) [#/Vol] 0.6 10*3/uL Low 1.0-3.5 [facility] Comment on above: Performed By: #### 3 040-3, CMP, CBCA #### [facility] ([id number]) [address] [place] [address] 15133 Lymphocytes/100 WBC (Bld) 11.4 % Normal [facility] Comment on above: Performed By: #### 3 040-3, CMP, CBCA #### [facility] ([id number]) [address] [place] [address] 01294 MCH (RBC) [Entitic mass] 32.4 pg Normal 27-34 [facility] Comment on above: Performed By: #### 3 040-3, CMP, CBCA #### [facility] ([id number]) [address] [place] [address] 09985 MCHC (RBC) [Mass/Vol] 33.8 g/dL Normal 32-36 [facility] Comment on above: Performed By: #### 3 040-3, CMP, CBCA #### [facility] ([id number]) [address] [place] [address] 88876 MCV (RBC) [Entitic vol] 96 fL Normal 80-100 [facility] Comment on above: Performed By: #### 3 040-3, CMP, CBCA #### [facility] ([id number]) [address] [place] [address] 35421 Monocytes (Bld) [#/Vol] 0.2 10*3/uL Normal 0-0.9 [facility] Comment on above: Performed By: #### 3 040-3, CMP, CBCA #### [facility] ([id number]) [address] [place] [address] 22791 Monocytes/100 WBC (Bld) 3.3 % Normal [facility] Comment on above: Performed By: #### 3 040-3, CMP, CBCA #### [facility] ([id number]) [address] [place] [address] 78507 Neutrophils/100 WBC (Bld) 84.4 % Normal [facility] Comment on above: Performed By: #### 3 040-3, CMP, CBCA #### [facility] ([id number]) [address] [place] [address] 44911 Platelet mean volume (Bld) [Entitic vol] 11.2 fL Normal 7-12 [facility] Comment on above: Performed By: #### 3 040-3, CMP, CBCA #### [facility] ([id number]) [address] [place] [address] 04947 Platelets (Bld) [#/Vol] 171 10*3/uL Normal 150-450 [facility] Comment on above: Performed By: #### 3 040-3, CMP, CBCA #### [facility] ([id number]) [address] [place] [address] 01740 RBC COUNT 3.80 X10E12/L Normal 3.80-5.20 [facility] Comment on above: Performed By: #### 3 040-3, CMP, CBCA #### [facility] ([id number]) [address] [place] [address] 31293 WBC (Bld) [#/Vol] 5.3 10*3/uL Normal 4.0-11.0 [facility] Comment on above: Performed By: #### 3 040-3, CMP, CBCA #### [facility] ([id number]) [address] [place] [address] 88426 COMPREHENSIVE METABOLIC PANE [facility] 09-16-2024 Albumin [Mass/Vol] 4.7 g/dL Normal 3.2-5.3 [facility] Comment on above: Performed By: #### 3 040-3, CMP, CBCA #### [facility] ([id number]) [address] [place] [address] 83897 ALP [Catalytic activity/Vol] 34 U/L Low 39-130 [facility] Comment on above: Performed By: #### 3 040-3, CMP, CBCA #### [facility] ([id number]) [address] [place] [address] 63448 ALT [Catalytic activity/Vol] 17 U/L Normal 0-31 [facility] Comment on above: Performed By: #### 3 040-3, CMP, CBCA #### [facility] ([id number]) [address] [place] [address] 70042 Anion gap [Moles/Vol] 13 mmol/L Normal 5-15 [facility] Comment on above: Performed By: #### 3 040-3, CMP, CBCA #### [facility] ([id number]) [address] [place] [address] 03685 AST [Catalytic activity/Vol] 21 U/L Normal 0-41 [facility] Comment on above: Performed By: #### 3 040-3, CMP, CBCA #### [facility] ([id number]) [address] [place] [address] 95323 Bilirubin [Mass/Vol] 0.6 mg/dL Normal 0.3-1.2 [facility] Comment on above: Performed By: #### 3 040-3, CMP, CBCA #### [facility] ([id number]) [address] [place] [address] 46197 Calcium [Mass/Vol] 9.2 mg/dL Normal 8.5-10.5 [facility] Comment on above: Performed By: #### 3 040-3, CMP, CBCA #### [facility] ([id number]) [address] [place] [address] 84353 Chloride [Moles/Vol] 108 mmol/L Normal 98-109 [facility] Comment on above: Performed By: #### 3 040-3, CMP, CBCA #### [facility] ([id number]) [address] [place] [address] 33064 CO2 [Moles/Vol] 19 mmol/L Low 22-32 [facility] Comment on above: Performed By: #### 3 040-3, CMP, CBCA #### [facility] ([id number]) [address] [place] [address] 76879 Creatinine [Mass/Vol] 0.70 mg/dL Normal 0.40-1.00 [facility] Comment on above: Result Comment: METH OD TRACEABLE TO IDMS STANDARD Performed By: #### 3 040-3, CMP, CBCA #### [facility] ([id number]) [address] [place] [address] 12745 eGFR (CKD-EPI) NON-RACE DEPENDENT >90 Normal >59 [facility] Comment on above: Result Comment: Reported eGFR is based on the CKD-EPI 2020 equation that does not use a race coefficient. Performed By: #### 3 040-3, CMP, CBCA #### [facility] ([id number]) [address] [place] [address] 09716 Glucose [Mass/Vol] 131 mg/dL High 65-99 [facility] Comment on above: Performed By: #### 3 040-3, CMP, CBCA #### [facility] ([id number]) [address] [place] [address] 07830 Potassium [Moles/Vol] 3.5 mmol/L Normal 3.5-5.0 [facility] Comment on above: Performed By: #### 3 040-3, CMP, CBCA #### [facility] ([id number]) [address] [place] [address] 64362 Protein [Mass/Vol] 7.5 g/dL Normal 6.0-8.0 [facility] Comment on above: Performed By: #### 3 040-3, CMP, CBCA #### [facility] ([id number]) [address] [place] [address] 93460 Sodium [Moles/Vol] 140 mmol/L Normal 134-146 [facility] Comment on above: Performed By: #### 3 040-3, CMP, CBCA #### [facility] ([id number]) [address] [place] [address] 53432 Urea nitrogen [Mass/Vol] 9 mg/dL Normal 5-23 [facility] Comment on above: Performed By: #### 3 040-3, CMP, CBCA #### [facility] ([id number]) [address] [place] [address] [place] [address] Ethanol [Mass/Vol]on 024 ETHANOL 0.01 g/dL Normal 0.00-0.08 [facility] Comment on above: Result Comment: This report is intended for use in clinical monitoring or management of patients. Performed By: #### 3 040-3, CMP, CBCA #### [facility] ([id number]) [address] [place] [address] 21326 LIPASEon 09-16-2024 Lipase [Catalytic activity/Vol] 26 U/L Normal 17-40 [facility] Comment on above: Performed By: #### 3 040-3, CMP, CBCA #### [facility] ([id number]) [address] [place] [address] 44731 MAGNESIUMon 09-16-2024 Magnesium [Mass/Vol] 1.8 mg/dL Normal 1.8-2.6 [facility] Comment on above: Performed By: #### 3 040-3, CMP, CBCA #### [facility] ([id number]) [address] [place] [address] 96013 CBC AND AUTO DIFFon 08-31-20 24 ABSOLUTE BASOPHIL 0.1 X10E9/L Normal 0.0-0.2 [facility] Comment on above: Performed By: #### 3 040-3, CMP, CBCA #### [facility] ([id number]) [address] [place] [address] 69759 ABSOLUTE NEUTROPHIL 8.2 X10E9/L High 1.5-6.6 [facility] Comment on above: Performed By: #### 3 040-3, CMP, CBCA #### [facility] ([id number]) [address] [place] [address] 02124 Basophils/100 WBC (Bld) 0.5 % Normal [facility] Comment on above: Performed By: #### 3 040-3, CMP, CBCA #### [facility] ([id number]) [address] [place] [address] 88640 Eosinophils (Bld) [#/Vol] 0.1 10*3/uL Normal 0.0-0.4 [facility] Comment on above: Performed By: #### 3 040-3, CMP, CBCA #### [facility] ([id number]) [address] [place] [address] 45675 Eosinophils/100 WBC (Bld) 1.1 % Normal [facility] Comment on above: Performed By: #### 3 040-3, CMP, CBCA #### [facility] ([id number]) [address] [place] [address] 24864 Erythrocyte distribution width (RBC) [Ratio] 13.4 % Normal 11.5-15.0 [facility] Comment on above: Performed By: #### 3 040-3, CMP, CBCA #### [facility] ([id number]) [address] [place] [address] 02768 Hematocrit (Bld) [Volume fraction] 41.7 % Normal 35-47 [facility] Comment on above: Performed By: #### 3 040-3, CMP, CBCA #### [facility] ([id number]) [address] [place] [address] 38424 Hemoglobin (Bld) [Mass/Vol] 14.3 g/dL Normal 11.7-15.5 [facility] Comment on above: Performed By: #### 3 040-3, CMP, CBCA #### [facility] ([id number]) [address] [place] [address] 88961 Lymphocytes (Bld) [#/Vol] 1.6 10*3/uL Normal 1.0-3.5 [facility] Comment on above: Performed By: #### 3 040-3, CMP, CBCA #### [facility] ([id number]) [address] [place] [address] 37136 Lymphocytes/100 WBC (Bld) 15.1 % Normal [facility] Comment on above: Performed By: #### 3 040-3, CMP, CBCA #### [facility] ([id number]) [address] [place] [address] 62907 MCH (RBC) [Entitic mass] 32.7 pg Normal 27-34 [facility] Comment on above: Performed By: #### 3 040-3, CMP, CBCA #### [facility] ([id number]) [address] [place] [address] 87652 MCHC (RBC) [Mass/Vol] 34.3 g/dL Normal 32-36 [facility] Comment on above: Performed By: #### 3 040-3, CMP, CBCA #### [facility] ([id number]) [address] [place] [address] 02180 MCV (RBC) [Entitic vol] 95 fL Normal 80-100 [facility] Comment on above: Performed By: #### 3 040-3, CMP, CBCA #### [facility] ([id number]) [address] [place] [address] 80727 Monocytes (Bld) [#/Vol] 0.4 10*3/uL Normal 0-0.9 [facility] Comment on above: Performed By: #### 3 040-3, CMP, CBCA #### [facility] ([id number]) [address] [place] [address] 17846 Monocytes/100 WBC (Bld) 3.9 % Normal [facility] Comment on above: Performed By: #### 3 040-3, CMP, CBCA #### [facility] ([id number]) [address] [place] [address] 24330 Neutrophils/100 WBC (Bld) 79.4 % Normal [facility] Comment on above: Performed By: #### 3 040-3, CMP, CBCA #### [facility] ([id number]) [address] [place] [address] 98326 Platelet mean volume (Bld) [Entitic vol] 10.9 fL Normal 7-12 [facility] Comment on above: Performed By: #### 3 040-3, CMP, CBCA #### [facility] ([id number]) [address] [place] [address] 86155 Platelets (Bld) [#/Vol] 201 10*3/uL Normal 150-450 [facility] Comment on above: Performed By: #### 3 040-3, CMP, CBCA #### [facility] ([id number]) [address] [place] [address] 93235 RBC COUNT 4.38 X10E12/L Normal 3.80-5.20 [facility] Comment on above: Performed By: #### 3 040-3, CMP, CBCA #### [facility] ([id number]) [address] [place] [address] 72450 WBC (Bld) [#/Vol] 10.3 10*3/uL Normal 4.0-11.0 [facility] Comment on above: Performed By: #### 3 040-3, CMP, CBCA #### [facility] ([id number]) [address] [place] [address] 49401 COMPREHENSIVE METABOLIC PANE [facility] 08-31-2024 Albumin [Mass/Vol] 5.3 g/dL Normal 3.2-5.3 [facility] Comment on above: Performed By: #### 3 040-3, CMP, CBCA #### [facility] ([id number]) [address] [place] [address] 94896 ALP [Catalytic activity/Vol] 43 U/L Normal 39-130 [facility] Comment on above: Performed By: #### 3 040-3, CMP, CBCA #### [facility] ([id number]) [address] [place] [address] 98054 ALT [Catalytic activity/Vol] 18 U/L Normal 0-31 [facility] Comment on above: Performed By: #### 3 040-3, CMP, CBCA #### [facility] ([id number]) [address] [place] [address] 33863 Anion gap [Moles/Vol] 13 mmol/L Normal 5-15 [facility] Comment on above: Performed By: #### 3 040-3, CMP, CBCA #### [facility] ([id number]) [address] [place] [address] 35948 AST [Catalytic activity/Vol] 27 U/L Normal 0-41 [facility] Comment on above: Performed By: #### 3 040-3, CMP, CBCA #### [facility] ([id number]) [address] [place] [address], [place] [address] Bilirubin [Mass/Vol] 0.9 mg/dL Normal 0.3-1.2 [facility] Comment on above: Performed By: #### 3 040-3, CMP, CBCA #### [facility] ([id number]) [address] [place] [address] 53609 Calcium [Mass/Vol] 9.7 mg/dL Normal 8.5-10.5 [facility] Comment on above: Performed By: #### 3 040-3, CMP, CBCA #### [facility] ([id number]) [address] [place] [address] [place] [address] Chloride [Moles/Vol] 104 mmol/L Normal 98-109 [facility] Comment on above: Performed By: #### 3 040-3, CMP, CBCA #### [facility] ([id number]) [address] [place] [address], [place] [address] CO2 [Moles/Vol] 19 mmol/L Low 22-32 [facility] Comment on above: Performed By: #### 3 040-3SARAH, CBCA #### [facility] ([id number]) [address] [place] [address] 63451 Creatinine [Mass/Vol] 0.89 mg/dL Normal 0.40-1.00 [facility] Comment on above: Result Comment: METH OD TRACEABLE TO IDMS STANDARD Performed By: #### 3 040-3SARAH CBCA #### [facility] ([id number]) [address] [place] [address] 71109 eGFR (CKD-EPI) NON-RACE DEPENDENT >90 Normal >59 [facility] Comment on above: Result Comment: Reported eGFR is based on the CKD-EPI 2020 equation that does not use a race coefficient. Performed By: #### 3 040-3SARAH, CBCA #### [facility] ([id number]) [address] [place] [address] 69253 Glucose [Mass/Vol] 123 mg/dL High 65-99 [facility] Comment on above: Performed By: #### 3 040-3SARAH, CBCA #### [facility] ([id number]) [address] [place] [address] 72350 Potassium [Moles/Vol] 3.7 mmol/L Normal 3.5-5.0 [facility] Comment on above: Performed By: #### 3 040-3SARAH, CBCA #### [facility] ([id number]) [address] [place] [address] 28079 Protein [Mass/Vol] 8.2 g/dL High 6.0-8.0 [facility] Comment on above: Performed By: #### 3 040-3SARAH, CBCA #### [facility] ([id number]) [address] [place] [address] 00003 Sodium [Moles/Vol] 136 mmol/L Normal 134-146 [facility] Comment on above: Performed By: #### 3 040-3, SARAH CBCA #### [facility] ([id number]) [address] [place] [address] Urea nitrogen [Mass/Vol] 10 mg/dL Normal 5-23 [facility] Comment on above: Performed By: #### 3 040-3, SARAH, CBCA #### [facility] ([id number]) [address] [place] [address] CT ABDOMEN AND PELVIS W CONT on 08-31-2024 CT ABDOMEN AND PELVIS W CONT CT ABDOMEN AND PELVIS W CONT Indication: Right lower quadrant pain. TECHNIQUE: Enhanced CT of abdomen and pelvis is performed with no prior comparison. FINDINGS: Extreme lung bases are clear. The liver shows no definite worrisome lesion. There is nonopacification of posterior right hepatic veins. Left hepatic veins appear patent. A right liver appears mildly heterogeneous in the region. Portal vein widely patent. Motion artifact is present. The spleen is not enlarged. Adrenal glands, kidneys, and pancreas are not enlarged. The gallbladder is not dilated. No significant narrowing of preaortic left renal vein present. The abdominal aorta shows normal caliber. Small amount of free pelvic fluid is present. Functional cysts noted within right ovary measuring about 2 cm in size. Paraspinous musculature appears symmetric. Colon is completely collapsed with apparent diffuse mural thickening. No pneumatosis seen. No significant retroperitoneal lymphadenopathy appreciated. Cecum is somewhat low-lying within the pelvis. Bowel loops are crowded in the region. Small portion of probable normal appendix identified near the midline. No definite fluid or stranding in the region. Apparent cystic structure within left lower quadrant anteriorly axial image 53 probably represents mildly prominent small bowel loop rather than true lesion. Left ovary is located more inferiorly. Bone windows show no worrisome lesion. IMPRESSION: 1. Entire colon is predominantly collapsed compromising its evaluation. Diffuse colitis is apparent. Findings accentuated by collapsed state. Clinical correlation requested. Inflammatory infectious or ischemic etiologies are possible. 2. Nonopacification of posterior right hepatic veins with opacification of left hepatic veins. This probably relates to phase of imaging rather than thrombosis however thrombosis is not excluded. Ultrasound correlation recommended. All CT scans at this facility use dose modulation, iterative reconstruction, and/or weight based dosing when appropriate to reduce radiation dose to as low as reasonably achievable. Finalized by Kanika Zapaat MD on 08/31/2024 12:19 PM Normal [facility] HCG ( test) Ql (U)o n 08-31-2024 Beta HCG ( test) Ql (U) Negative Normal NEG [facility] Comment on above: Performed By: #### 3 040-3, CMP, CBCA #### [facility] ([id number]) [address] [place] [address] 78337 LIPASEon 08-31-2024 Lipase [Catalytic activity/Vol] 24 U/L Normal 17-40 [facility] Comment on above: Performed By: #### 3 040-3, CMP, CBCA #### [facility] ([id number]) [address] [place] [address] 04287 MAGNESIUMon 08-31-2024 Magnesium [Mass/Vol] 1.7 mg/dL Low 1.8-2.6 [facility] Comment on above: Performed By: #### 3 040-3, CMP, CBCA #### [facility] ([id number]) [address] [place] [address] 99080 URN MACROSCOPIC NURon 2023 BILIRUBIN ROSEANNA Negative Normal NEG [facility] Comment on above: Performed By: #### 3 040-3, CMP, CBCA #### [facility] ([id number]) [address] [place] [address] 72571 BLOOD/HGB ROSEANNA Negative Normal NEG [facility] Comment on above: Performed By: #### 3 040-3, CMP, CBCA #### [facility] ([id number]) [address] [place] [address] 35644 GLUCOSE ROSEANNA Negative Normal NEG [facility] Comment on above: Performed By: #### 3 040-3, CMP, CBCA #### [facility] ([id number]) [address] [place] [address] 31281 KETONES ROSEANNA >=160 Abnormal NEG [facility] Comment on above: Performed By: #### 3 040-3, CMP, CBCA #### [facility] ([id number]) [address] [place] [address] 81628 LEUKOCYTE ESTERASE ROSEANNA Negative Normal NEG [facility] Comment on above: Performed By: #### 3 040-3, CMP, CBCA #### [facility] ([id number]) [address] [place] [address] 89997 NITRITE ROSEANNA Negative Normal NEG [facility] Comment on above: Performed By: #### 3 040-3, CMP, CBCA #### [facility] ([id number]) [address] [place] [address] 33876 PH ROSEANNA >=9.0 Normal 5.0-8.5 [facility] Comment on above: Performed By: #### 3 040-3, CMP, CBCA #### [facility] ([id number]) [address] [place] [address] 98447 PROTEIN ROSEANNA 30 mg/dL Abnormal NEG [facility] Comment on above: Performed By: #### 3 040-3, CMP, CBCA #### [facility] ([id number]) [address] [place] [address] 90839 SPECIFIC GRAVITY ROSEANNA 1.010 Normal 1.003-1.035 [facility] Comment on above: Performed By: #### 3 040-3, CMP, CBCA #### [facility] ([id number]) [address] [place] [address] 54366 UROBILINOGEN ROSEANNA 0.2 eu/dL Normal <1.1 [facility] Comment on above: Performed By: #### 3 040-3, CMP, CBCA #### [facility] ([id number]) [address] [place] [address] 32239 Office Visiton 08-22-2024 Follow-up visit [id number] Padmini Ray 2000 F Date Provider Department Center 08/22/2024 LUIS [facility] Family History Problem Relation Age of Onset Heart attack Maternal Grandfather Family Status - Relation Status Age at Maternal Grandfather Level of Service:60129 NE OFFICE/OUTPATIENT NEW LOW MDM 30 MINUTES Normal [facility] CBC AND AUTO DIFFon 07-15-20 24 ABSOLUTE BASOPHIL 0.1 X10E9/L Normal 0.0-0.2 [facility] Comment on above: Performed By: #### C DIANDRA, , CBCA, 3040-3 #### [facility] ([id number]) [address] [place] [address] 63198 ABSOLUTE NEUTROPHIL 9.5 X10E9/L High 1.5-6.6 [facility] Comment on above: Performed By: #### C DIANDRA, , CBCA, 3040-3 #### [facility] ([id number]) [address] [place] [address] 35297 Basophils/100 WBC (Bld) 0.6 % Normal [facility] Comment on above: Performed By: #### C DIANDRA, , CBCA, 3040-3 #### [facility] ([id number]) [address] [place] [address] 85029 Eosinophils (Bld) [#/Vol] 0.1 10*3/uL Normal 0.0-0.4 [facility] Comment on above: Performed By: #### C DIANDRA, , CBCA, 3040-3 #### [facility] ([id number]) [address] [place] [address] 39302 Eosinophils/100 WBC (Bld) 0.7 % Normal [facility] Comment on above: Performed By: #### C DIANDRA, , CBCA, 3040-3 #### [facility] ([id number]) [address] [place] [address] 22736 Erythrocyte distribution width (RBC) [Ratio] 13.8 % Normal 11.5-15.0 [facility] Comment on above: Performed By: #### Dipika JIM, , CBCA, 0-3 #### [facility] ([id number]) [address] [place] [address] 29087 Hematocrit (Bld) [Volume fraction] 39.4 % Normal 35-47 [facility] Comment on above: Performed By: #### C DIANDRA, , CBCA, 0-3 #### [facility] ([id number]) [address] [place] [address] 48626 Hemoglobin (Bld) [Mass/Vol] 13.4 g/dL Normal 11.7-15.5 [facility] Comment on above: Performed By: #### Dipika JIM, , CBCA, 0-3 #### [facility] ([id number]) [address] [place] [address] 41925 Lymphocytes (Bld) [#/Vol] 1.7 10*3/uL Normal 1.0-3.5 [facility] Comment on above: Performed By: #### C DIANDRA, , CBCA, 0-3 #### [facility] ([id number]) [address] [place] [address] 63818 Lymphocytes/100 WBC (Bld) 14.1 % Normal [facility] Comment on above: Performed By: #### Dipika JIM, , CBCA, 3040-3 #### [facility] ([id number]) [address] [place] [address] 30087 MCH (RBC) [Entitic mass] 32.3 pg Normal 27-34 [facility] Comment on above: Performed By: #### C DIANDRA, , CBCA, 3040-3 #### [facility] ([id number]) [address] [place] [address] 82078 MCHC (RBC) [Mass/Vol] 33.9 g/dL Normal 32-36 [facility] Comment on above: Performed By: #### C DIANDRA, , CBCA, 0-3 #### [facility] ([id number]) [address] [place] [address] 70036 MCV (RBC) [Entitic vol] 95 fL Normal 80-100 [facility] Comment on above: Performed By: #### C DIANDRA, , CBCA, 0-3 #### [facility] ([id number]) [address] [place] [address] 59130 Monocytes (Bld) [#/Vol] 0.5 10*3/uL Normal 0-0.9 [facility] Comment on above: Performed By: #### Dipika JIM, , CBCA, 0-3 #### [facility] ([id number]) [address] [place] [address] 10005 Monocytes/100 WBC (Bld) 4.2 % Normal [facility] Comment on above: Performed By: #### C DIANDRA, , CBCA, 0-3 #### [facility] ([id number]) [address] [place] [address] 94645 Neutrophils/100 WBC (Bld) 80.4 % Normal [facility] Comment on above: Performed By: #### C DIANDRA, , CBCA, 3040-3 #### [facility] ([id number]) [address] [place] [address] 67972 Platelet mean volume (Bld) [Entitic vol] 11.2 fL Normal 7-12 [facility] Comment on above: Performed By: #### C DIANDRA, , CBCA, 3040-3 #### [facility] ([id number]) [address] [place] [address] 46721 Platelets (Bld) [#/Vol] 178 10*3/uL Normal 150-450 [facility] Comment on above: Performed By: #### C DIANDRA, , CBCA, 0-3 #### [facility] ([id number]) [address] [place] [address] 01726 RBC COUNT 4.14 X10E12/L Normal 3.80-5.20 [facility] Comment on above: Performed By: #### C DIANDRA, , CBCA, 3039-3 #### [facility] ([id number]) [address] [place] [address] 95855 WBC (Bld) [#/Vol] 11.8 10*3/uL High 4.0-11.0 [facility] Comment on above: Performed By: #### C DIANDRA, , CBCA, 0-3 #### [facility] ([id number]) [address] [place] [address] 84605 COMPREHENSIVE METABOLIC PANE Yousuf 07-15-2024 Albumin [Mass/Vol] 4.9 g/dL Normal 3.2-5.3 [facility] Comment on above: Performed By: #### C DIANDRA, , CBCA, 0-3 #### [facility] ([id number]) [address] [place] [address] 94165 ALP [Catalytic activity/Vol] 37 U/L Low 39-130 [facility] Comment on above: Performed By: #### Dipika JIM, , CBCA, 0-3 #### [facility] ([id number]) [address] [place] [address] 91415 ALT [Catalytic activity/Vol] 20 U/L Normal 0-31 [facility] Comment on above: Performed By: #### C DIANDRA, , CBCA, 3040-3 #### [facility] ([id number]) [address] [place] [address] 68711 Anion gap [Moles/Vol] 11 mmol/L Normal 5-15 [facility] Comment on above: Performed By: #### C DIANDRA, , CBCA, 3040-3 #### [facility] ([id number]) [address] [place] [address] 78099 AST [Catalytic activity/Vol] 21 U/L Normal 0-41 [facility] Comment on above: Performed By: #### C DIANDRA, , CBCA, 3040-3 #### [facility] ([id number]) [address] [place] [address] 22659 Bilirubin [Mass/Vol] 0.7 mg/dL Normal 0.3-1.2 [facility] Comment on above: Performed By: #### Dipika JIM, , CBCA, 3040-3 #### [facility] ([id number]) [address] [place] [address] 13619 Calcium [Mass/Vol] 9.3 mg/dL Normal 8.5-10.5 [facility] Comment on above: Performed By: #### C DIANDRA, , CBCA, 3040-3 #### [facility] ([id number]) [address] [place] [address] 49183 Chloride [Moles/Vol] 106 mmol/L Normal 98-109 [facility] Comment on above: Performed By: #### Dipika JIM, , CBCA, 3040-3 #### [facility] ([id number]) [address] [place] [address] 85771 CO2 [Moles/Vol] 20 mmol/L Low 22-32 [facility] Comment on above: Performed By: #### C DIANDRA, , CBCA, 3040-3 #### [facility] ([id number]) [address] [place] [address] 66540 Creatinine [Mass/Vol] 0.80 mg/dL Normal 0.40-1.00 [facility] Comment on above: Result Comment: METH OD TRACEABLE TO IDMS STANDARD Performed By: #### C DIANDRA, , CBCA, 3039-3 #### [facility] ([id number]) [address] [place] [address] 27908 eGFR (CKD-EPI) NON-RACE DEPENDENT >90 Normal >59 [facility] Comment on above: Result Comment: Reported eGFR is based on the CKD-EPI 2020 equation that does not use a race coefficient. Performed By: #### C DIANDRA, , CBCA, 3040-3 #### [facility] ([id number]) [address] [place] [address] 03247 Glucose [Mass/Vol] 126 mg/dL High 65-99 [facility] Comment on above: Performed By: #### C DIANDRA, , CBCA, 3039-3 #### [facility] ([id number]) [address] [place] [address] 21739 Potassium [Moles/Vol] 3.3 mmol/L Low 3.5-5.0 [facility] Comment on above: Performed By: #### C DIANDRA, , CBCA, 3040-3 #### [facility] ([id number]) [address] [place] [address] 26058 Protein [Mass/Vol] 7.7 g/dL Normal 6.0-8.0 [facility] Comment on above: Performed By: #### C DIANDRA, , CBCA, 3040-3 #### [facility] ([id number]) [address] [place] [address] 74496 Sodium [Moles/Vol] 137 mmol/L Normal 134-146 [facility] Comment on above: Performed By: #### C DIANDRA, , CBCA, 3039-3 #### [facility] ([id number]) [address] [place] [address] 81051 Urea nitrogen [Mass/Vol] 10 mg/dL Normal 5-23 [facility] Comment on above: Performed By: #### C DIANDRA, , CBCA, 3039-3 #### [facility] ([id number]) [address] [place] [address] 45643 HCG ( test) Ql (U)o n 07-15-2024 Beta HCG ( test) Ql (U) Negative Normal NEG [facility] Comment on above: Performed By: #### 3 040-3, CMP, CBCA #### [facility] ([id number]) [address] [place] [address] 65253 LIPASEon 07-15-2024 Lipase [Catalytic activity/Vol] 26 U/L Normal 17-40 [facility] Comment on above: Performed By: #### C DIANDRA, , CBCA, 3039-3 #### [facility] ([id number]) [address] [place] [address] 00472 MAGNESIUMon 07-15-2024 Magnesium [Mass/Vol] 1.6 mg/dL Low 1.8-2.6 [facility] Comment on above: Performed By: #### C DIANDRA, , CBCA, 3040-3 #### [facility] ([id number]) [address] [place] [address] 90102 URN MACROSCOPIC NURon 2023 BILIRUBIN ROSEANNA Negative Normal NEG [facility] Comment on above: Performed By: #### N UM #### [facility] ([id number]) [address] [place] [address] 59423 BLOOD/HGB ROSEANNA Negative Normal NEG [facility] Comment on above: Performed By: #### N UM #### [facility] ([id number]) [address] [place] [address] [place] [address] GLUCOSE ROSEANNA Negative Normal NEG [facility] Comment on above: Performed By: #### N UM #### [facility] ([id number]) [address] [place] [address] 80778 KETONES ROSEANNA 15 mg/dL Abnormal NEG [facility] Comment on above: Performed By: #### N UM #### [facility] ([id number]) [address] [place] [address] [place] [address] LEUKOCYTE ESTERASE ROSEANNA Small Abnormal NEG [facility] Comment on above: Performed By: #### N UM #### [facility] ([id number]) [address] [place] [address] [place] [address] NITRITE ROSEANNA Positive Abnormal NEG [facility] Comment on above: Performed By: #### N UM #### [facility] ([id number]) [address] [place] [address] 04772 PH ROSEANNA 8.5 Normal 5.0-8.5 [facility] Comment on above: Performed By: #### N UM #### [facility] ([id number]) [address] [place] [address] 72394 PROTEIN ROSEANNA 100 mg/dL Abnormal NEG [facility] Comment on above: Performed By: #### N UM #### [facility] ([id number]) [address] [place] [address] 20088 SPECIFIC GRAVITY ROSEANNA 1.015 Normal 1.003-1.035 [facility] Comment on above: Performed By: #### N UM #### [facility] ([id number]) [address] [place] [address] 69936 UROBILINOGEN ROSEANNA 0.2 eu/dL Normal <1.1 [facility] Comment on above: Performed By: #### N UM #### [facility] ([id number]) [address] [place] [address] 80546 CBC AND AUTO DIFFon 06-27-20 24 ABSOLUTE BASOPHIL 0.1 X10E9/L Normal 0.0-0.2 [facility] Comment on above: Performed By: #### 3 040-3, CMP, CBCA #### [facility] ([id number]) [address] [place] [address] 21022 ABSOLUTE NEUTROPHIL 7.1 X10E9/L High 1.5-6.6 [facility] Comment on above: Performed By: #### 3 040-3, CMP, CBCA #### [facility] ([id number]) [address] [place] [address] 47750 Basophils/100 WBC (Bld) 0.7 % Normal [facility] Comment on above: Performed By: #### 3 040-3, CMP, CBCA #### [facility] ([id number]) [address] [place] [address] 93226 Eosinophils (Bld) [#/Vol] 0.1 10*3/uL Normal 0.0-0.4 [facility] Comment on above: Performed By: #### 3 040-3, CMP, CBCA #### [facility] ([id number]) [address] [place] [address] 52474 Eosinophils/100 WBC (Bld) 0.6 % Normal [facility] Comment on above: Performed By: #### 3 040-3, CMP, CBCA #### [facility] ([id number]) [address] [place] [address] 86742 Erythrocyte distribution width (RBC) [Ratio] 13.5 % Normal 11.5-15.0 [facility] Comment on above: Performed By: #### 3 040-3, CMP, CBCA #### [facility] ([id number]) [address] [place] [address] 66080 Hematocrit (Bld) [Volume fraction] 40.0 % Normal 35-47 [facility] Comment on above: Performed By: #### 3 040-3, CMP, CBCA #### [facility] ([id number]) [address] [place] [address] 49987 Hemoglobin (Bld) [Mass/Vol] 13.8 g/dL Normal 11.7-15.5 [facility] Comment on above: Performed By: #### 3 040-3, CMP, CBCA #### [facility] ([id number]) [address] [place] [address] 22401 Lymphocytes (Bld) [#/Vol] 1.4 10*3/uL Normal 1.0-3.5 [facility] Comment on above: Performed By: #### 3 040-3, CMP, CBCA #### [facility] ([id number]) [address] [place] [address] 30250 Lymphocytes/100 WBC (Bld) 15.3 % Normal [facility] Comment on above: Performed By: #### 3 040-3, CMP, CBCA #### [facility] ([id number]) [address] [place] [address] 02307 MCH (RBC) [Entitic mass] 32.8 pg Normal 27-34 [facility] Comment on above: Performed By: #### 3 040-3, CMP, CBCA #### [facility] ([id number]) [address] [place] [address] 19964 MCHC (RBC) [Mass/Vol] 34.6 g/dL Normal 32-36 [facility] Comment on above: Performed By: #### 3 040-3, CMP, CBCA #### [facility] ([id number]) [address] [place] [address] 99448 MCV (RBC) [Entitic vol] 95 fL Normal 80-100 [facility] Comment on above: Performed By: #### 3 040-3, CMP, CBCA #### [facility] ([id number]) [address] [place] [address] 24529 Monocytes (Bld) [#/Vol] 0.3 10*3/uL Normal 0-0.9 [facility] Comment on above: Performed By: #### 3 040-3, CMP, CBCA #### [facility] ([id number]) [address] [place] [address] 36203 Monocytes/100 WBC (Bld) 3.0 % Normal [facility] Comment on above: Performed By: #### 3 040-3, CMP, CBCA #### [facility] ([id number]) [address] [place] [address] 92236 Neutrophils/100 WBC (Bld) 80.4 % Normal [facility] Comment on above: Performed By: #### 3 040-3, CMP, CBCA #### [facility] ([id number]) [address] [place] [address] 35914 Platelet mean volume (Bld) [Entitic vol] 11.0 fL Normal 7-12 [facility] Comment on above: Performed By: #### 3 040-3, CMP, CBCA #### [facility] ([id number]) [address] [place] [address] 62614 Platelets (Bld) [#/Vol] 204 10*3/uL Normal 150-450 [facility] Comment on above: Performed By: #### 3 040-3, CMP, CBCA #### [facility] ([id number]) [address] [place] [address] 33913 RBC COUNT 4.22 X10E12/L Normal 3.80-5.20 [facility] Comment on above: Performed By: #### 3 040-3, CMP, CBCA #### [facility] ([id number]) [address] [place] [address] 65567 WBC (Bld) [#/Vol] 8.8 10*3/uL Normal 4.0-11.0 [facility] Comment on above: Performed By: #### 3 040-3, CMP, CBCA #### [facility] ([id number]) [address] [place] [address] 98647 COMPREHENSIVE METABOLIC PANE [facility] 06-27-2024 Albumin [Mass/Vol] 5.2 g/dL Normal 3.2-5.3 [facility] Comment on above: Performed By: #### 3 040-3, CMP, CBCA #### [facility] ([id number]) [address] [place] [address] 16704 ALP [Catalytic activity/Vol] 41 U/L Normal 39-130 [facility] Comment on above: Performed By: #### 3 040-3, CMP, CBCA #### [facility] ([id number]) [address] [place] [address] 67631 ALT [Catalytic activity/Vol] 18 U/L Normal 0-31 [facility] Comment on above: Performed By: #### 3 040-3, CMP, CBCA #### [facility] ([id number]) [address] [place] [address] 51653 Anion gap [Moles/Vol] 13 mmol/L Normal 5-15 [facility] Comment on above: Performed By: #### 3 040-3, CMP, CBCA #### [facility] ([id number]) [address] [place] [address] 94674 AST [Catalytic activity/Vol] 22 U/L Normal 0-41 [facility] Comment on above: Performed By: #### 3 040-3, CMP, CBCA #### [facility] ([id number]) [address] [place] [address] 69776 Bilirubin [Mass/Vol] 0.8 mg/dL Normal 0.3-1.2 [facility] Comment on above: Performed By: #### 3 040-3, CMP, CBCA #### [facility] ([id number]) [address] [place] [address] 77607 Calcium [Mass/Vol] 9.5 mg/dL Normal 8.5-10.5 [facility] Comment on above: Performed By: #### 3 040-3, CMP, CBCA #### [facility] ([id number]) [address] [place] [address] 41050 Chloride [Moles/Vol] 104 mmol/L Normal 98-109 [facility] Comment on above: Performed By: #### 3 040-3, CMP, CBCA #### [facility] ([id number]) [address] [place] [address] 11835 CO2 [Moles/Vol] 19 mmol/L Low 22-32 [facility] Comment on above: Performed By: #### 3 040-3, CMP, CBCA #### [facility] ([id number]) [address] [place] [address] 99681 Creatinine [Mass/Vol] 0.87 mg/dL Normal 0.40-1.00 [facility] Comment on above: Result Comment: METH OD TRACEABLE TO IDMS STANDARD Performed By: #### 3 040-3, CMP, CBCA #### [facility] ([id number]) [address] [place] [address] [place] [address] eGFR (CKD-EPI) NON-RACE DEPENDENT >90 Normal >59 [facility] Comment on above: Result Comment: Reported eGFR is based on the CKD-EPI 2020 equation that does not use a race coefficient. Performed By: #### 3 040-3, SARAH, CBCA #### [facility] ([id number]) [address] [place] [address] 21468 Glucose [Mass/Vol] 129 mg/dL High 65-99 [facility] Comment on above: Performed By: #### 3 040-3, SARAH, CBCA #### [facility] ([id number]) [address] [place] [address] 35785 Potassium [Moles/Vol] 3.3 mmol/L Low 3.5-5.0 [facility] Comment on above: Performed By: #### 3 040-3, SARAH, CBCA #### [facility] ([id number]) [address] [place] [address] 12536 Protein [Mass/Vol] 8.1 g/dL High 6.0-8.0 [facility] Comment on above: Performed By: #### 3 040-3SARAH, CBCA #### [facility] ([id number]) [address] [place] [address] 34011 Sodium [Moles/Vol] 136 mmol/L Normal 134-146 [facility] [facility] Comment on above: Performed By: #### 3 040-3, SARAH, CBCA #### [facility] ([id number]) [address] [place] [address] Urea nitrogen [Mass/Vol] 12 mg/dL Normal 5-23 [facility] Comment on above: Performed By: #### 3 040-3, SARAH, CBCA #### [facility] ([id number]) [address] [place] [address] 68958 HCG ( test) Ql (U)o n 06-27-2024 Beta HCG ( test) Ql (U) Negative Normal NEG [facility] Comment on above: Performed By: #### 2 106-3 #### [facility] ([id number]) [address] [place] [address] LIPASEon 06-27-2024 Lipase [Catalytic activity/Vol] 27 U/L Normal 17-40 [facility] Comment on above: Performed By: #### 3 040-3, CMP, CBCA #### [facility] ([id number]) [address] [place] [address] 70231 URN MACROSCOPIC NURon 2023 BILIRUBIN ROSEANNA Negative Normal [facility] Comment on above: Performed By: #### N UM #### [facility] ([id number]) [address] [place] [address] [place] [address] BLOOD/HGB ROSEANNA Negative Normal [facility] Comment on above: Performed By: #### N UM #### [facility] ([id number]) [address] [place] [address] [place] [address] GLUCOSE ROSEANNA Negative Normal [facility] Comment on above: Performed By: #### N UM #### [facility] ([id number]) [address] [place] [address] [place] [address] KETONES ROSEANNA >=160 Abnormal NEG [facility] Comment on above: Performed By: #### N UM #### [facility] ([id number]) [address] [place] [address] [place] [address] LEUKOCYTE ESTERASE ROSEANNA Negative Normal [facility] Comment on above: Performed By: #### N UM #### [facility] ([id number]) [address] [place] [address] [place] [address] NITRITE ROSEANNA Negative Normal [facility] Comment on above: Performed By: #### N UM #### [facility] ([id number]) [address] [place] [address] 90346 PH ROSEANNA 7.5 Normal 5.0-8.5 [facility] Comment on above: Performed By: #### N UM #### [facility] ([id number]) [address] [place] [address] 01128 PROTEIN ROSEANNA Trace Abnormal NEG [facility] Comment on above: Performed By: #### N UM #### [facility] ([id number]) [address] [place] [address] SPECIFIC GRAVITY ROSEANNA 1.020 Normal 1.003-1.035 [facility] Comment on above: Performed By: #### N UM #### [facility] ([id number]) [address] [place] [address] 31314 UROBILINOGEN ROSEANNA 0.2 eu/dL Normal <1.1 [facility] Comment on above: Performed By: #### N UM #### [facility] ([id number]) [address] [place] [address] 48462 HCG-BETA SUBUNIT QUANTon hCG,Beta Subunit,Qnt,Serum <1 Normal [facility] Comment on above: Result Comment: Fema le (Non-) 0 - 5 (Postmenopausal) 0 - 8 . Female () Weeks of Gestation 3 6 - 71 4 10 - 750 5 736 - 9746 6 829 - 69245 7 4883 -[phone] 8 99277 -378100 9 11039 -[phone] 10 24844 -[phone] 12 86068 -733032 14 60117 - 84033 15 88683 - 95467 16 9976 - 92645 17 8000 - 83096 18 4379 - [phone] Barbara ECLIA methodology Performed By: #### H CGSUB #### [facility] [address] [place] [address] Dr. Kassy Rincon CBC AUTO DIFFon 07-09-2022 BASO # 0.0 103/ul Normal 0.0-0.1 [facility] Comment on above: Performed By: #### C BC #### [facility] [address] [address] [address] Kassy Rincon Basophils/100 WBC (Bld) 0.8 % Normal 0.2-2.0 [facility] Comment on above: Performed By: #### C BC #### [facility] [address] [address] [address] Kassy Rincon EO # 0.1 103/ul Normal 0.0-0.7 [facility] Comment on above: Performed By: #### C BC #### [facility] [address] [address] [address] Kassy Rincon Eosinophils/100 WBC (Bld) 1.3 % Normal 0.9-7.0 [facility] Comment on above: Performed By: #### C BC #### [facility] [address] [place] [address] Dr. Kassy Rincon Erythrocyte distribution width (RBC) [Ratio] 13.9 % Normal 11.0-15.0 [facility] Comment on above: Performed By: #### C BC #### [facility] [address] [place] [address] Dr. Kassy Rincon Hematocrit (Bld) [Volume fraction] 39.1 % Normal 36.0-48.0 [facility] Comment on above: Performed By: #### C BC #### [facility] [address] [place] [address] Dr. Ksasy Rincon Hemoglobin (Bld) [Mass/Vol] 12.6 g/dL Normal 12.0-16.0 [facility] Comment on above: Performed By: #### C BC #### [facility] [address] [place] [address] Dr. Kassy Rincon IG # 0.01 10e3/ul Normal 0.00-0.03 [facility] Comment on above: Performed By: #### C BC #### [facility] [address] [place] [address] Dr. Kassy Rincon IG % 0.3 % Normal 0.0-0.5 [facility] Comment on above: Performed By: #### C BC #### [facility] [address] [address] [address] Kassy Rincon LYMPH # 1.1 103/ul Critically low 1.2-3.8 [facility] Comment on above: Performed By: #### C BC #### [facility] [address] [place] [address] Dr. Kassy Rincon Lymphocytes/100 WBC (Bld) 30.3 % Normal 20.5-60.0 [facility] Comment on above: Performed By: #### C BC #### [facility] [address] [place] [address] Dr. Kassy Rincon MANUAL DIFF REQ NO Normal [facility] Comment on above: Performed By: #### C BC #### [facility] [address] [place] [address] Dr. Kassy Rincon MCH (RBC) [Entitic mass] 30.6 pg Normal 26.7-34.0 [facility] Comment on above: Performed By: #### C BC #### [facility] [address] [place] [address] Dr. Kassy Rincon MCHC (RBC) [Mass/Vol] 32.2 g/dL Normal 29.9-35.2 [facility] Comment on above: Performed By: #### C BC #### [facility] [address] [place] [address] Dr. Kassy Rincon MCV (RBC) [Entitic vol] 94.9 fL Normal 81.0-99.0 [facility] Comment on above: Performed By: #### C BC #### [facility] [address] [place] [address] Dr. Kassy Rincon MONO # 0.2 103/ul Critically low 0.3-0.8 [facility] Comment on above: Performed By: #### C BC #### [facility] [address] [place] [address] Dr. Kassy Rincon Monocytes/100 WBC (Bld) 6.2 % Normal 1.7-12.0 [facility] Comment on above: Performed By: #### C BC #### [facility] [address] [address] [address] Kassy Rincon NEUT # 2.3 103/ul Normal 1.4-6.5 [facility] Comment on above: Performed By: #### C BC #### [facility] [address] [address] [address] Kassy Rincon Neutrophils/100 WBC (Bld) 61.1 % Normal 43.0-75.0 [facility] Comment on above: Performed By: #### C BC #### [facility] [address] [address] [address] Kassy Rincon Platelet mean volume (Bld) [Entitic vol] 14.4 fL Critically high 9.5-13.5 [facility] Comment on above: Performed By: #### C BC #### [facility] [address] [place] [address] Dr. Kassy Rincon PLT 218 103/ul Normal 150-450 [facility] Comment on above: Performed By: #### C BC #### [facility] [address] [address] [address] Kassy Rincon RBC 4.12 106/ul Critically low 4.20-5.40 [facility] Comment on above: Performed By: #### C BC #### [facility] [address] [address] [address] Kassy Rincon WBC 3.7 103/ul Critically low 4.0-11.0 [facility] Comment on above: Performed By: #### C BC #### [facility] [address] [place] [address] Dr. Kassy Rincon FREE T4on 07-09-2022 Free T4 [Mass/Vol] 0.99 ng/dL Normal 0.76-1.46 [facility] Comment on above: Performed By: #### F T4, VITB12 #### [facility] [address] [place] [address] Dr. Kassy Rincon LIPID PROFILEon 07-09-2022 CHOL-HDL RATIO NORM SEE BELOW Normal [facility] Comment on above: Result Comment: 3.3 - 4.4 LOW RISK 4.4 - 7.1 AVERAGE RISK 7.1 - 11.0 MODERATE RISK >11.0 HIGH RISK Performed By: #### T SH, LIPID, CMP #### [facility] [address] [address] [address] Kassy Rincon Cholesterol [Mass/Vol] 144 mg/dL Normal <=200 [facility] Comment on above: Performed By: #### T SH, LIPID, CMP #### [facility] [address] [address] [address] Kassy Rincon Cholesterol in HDL [Mass/Vol] 59 mg/dL Normal 40-60 [facility] Comment on above: Performed By: #### T SH, LIPID, CMP #### [facility] [address] [place] [address] Dr. Kassy Rincon Cholesterol in LDL [Mass/Vol] 75.2 mg/dL Normal [facility] Comment on above: Performed By: #### T DAVONTE, LIPID, CMP #### [facility] [address] [place] [address] Dr. Kassy Rincon Cholesterol.total/ Cholesterol in HDL [Mass ratio] 2.4 {ratio} Normal [facility] Comment on above: Performed By: #### T SH, LIPID, CMP #### [facility] [address] [place] [address] Dr. Kassy Rincon HDL NORMAL > or = 60 mg/dl - LOW CARDIOVASCULAR RISK <40 mg/dl - HIGH CARDIOVASCULAR RISK Normal [facility] Comment on above: Performed By: #### T SH, LIPID, CMP #### [facility] [address] [place] [address] Dr. Kassy Rincon LDL CALC NORMAL SEE BELOW Normal [facility] Comment on above: Result Comment: <100 mg/dl OPTIMAL 100 - 129 mg/dl NEAR OR ABOVE OPTIMAL 130 - 159 mg/dl BORDERLINE HIGH 160 - 189 mg/dl HIGH >190 mg/dl VERY HIGH Performed By: #### T SH, LIPID, CMP #### [facility] [address] [place] [address] Dr. Kassy Rincon Triglyceride [Mass/Vol] 49 mg/dL Normal <=150 [facility] Comment on above: Performed By: #### T SH, LIPID, CMP #### [facility] [address] [address] [address] Kassy Rincon VLDL CALC 9.8 mg/dL Normal [facility] Comment on above: Performed By: #### T SH, LIPID, CMP #### [facility] [address] [place] [address] Dr. Kassy Rincon PROF 14(COMP METB)on 022 Albumin [Mass/Vol] 4.0 g/dL Normal 3.4-5.0 [facility] Comment on above: Performed By: #### T DAVONTE, LIPID, CMP #### [facility] [address] [place] [address] Dr. Kassy Rincon Albumin/Globulin [Mass ratio] 1.3 {ratio} Normal [facility] Comment on above: Performed By: #### T SH, LIPID, CMP #### [facility] [address] [place] [address] Dr. Kassy Rincon ALP [Catalytic activity/Vol] 53 U/L Normal 46-116 [facility] Comment on above: Performed By: #### T SH, LIPID, CMP #### [facility] [address] [place] [address] Dr. Kassy Rincon ALT [Catalytic activity/Vol] 21 U/L Normal 14-59 [facility] Comment on above: Performed By: #### T DAVONTE, LIPID, CMP #### [facility] [address] [place] [address] Dr. Kassy Rincon Anion gap [Moles/Vol] 14.1 mmol/L Normal [facility] Comment on above: Performed By: #### T SH, LIPID, CMP #### [facility] [address] [place] [address] Dr. Kassy Rincon AST [Catalytic activity/Vol] 18 U/L Normal 15-37 [facility] Comment on above: Performed By: #### T SH, LIPID, CMP #### [facility] [address] [place] [address] Dr. Kassy Rincon Bilirubin [Mass/Vol] 0.4 mg/dL Normal 0.2-1.0 [facility] Comment on above: Performed By: #### T SH, LIPID, CMP #### [facility] [address] [place] [address] Dr. Kassy Rincon Calcium [Mass/Vol] 8.9 mg/dL Normal 8.5-10.1 [facility] Comment on above: Performed By: #### T SH, LIPID, CMP #### [facility] [address] [address] [address] Kassy Rincon Chloride [Moles/Vol] 102 mmol/L Normal 98-107 [facility] Comment on above: Performed By: #### T SH, LIPID, CMP #### [facility] [address] [place] [address] Dr. Kassy Rincon CO2 [Moles/Vol] 25.8 mmol/L Normal 21.0-32.0 [facility] Comment on above: Performed By: #### T SH, LIPID, CMP #### [facility] [address] [place] [address] Dr. Kassy Rincon Creatinine [Mass/Vol] 0.91 mg/dL Normal 0.55-1.02 [facility] Comment on above: Performed By: #### T DAVONTE, LIPID, CMP #### [facility] [address] [place] [address] Dr. Kassy Rincon EGFR-AF NIUEAN >60 Normal >=60 [facility] Comment on above: Performed By: #### T SH, LIPID, CMP #### [facility] [address] [place] [address] Dr. Kassy Rincon EGFR-NON AF NIUEAN >60 Normal >=60 [facility] Comment on above: Performed By: #### T SH, LIPID, CMP #### [facility] [address] [place] [address] Dr. Kassy Rincon Globulin (S) [Mass/Vol] 3.2 g/dL Normal [facility] Comment on above: Performed By: #### T SH, LIPID, CMP #### [facility] [address] [place] [address] Dr. Kassy Rincon Glucose [Mass/Vol] 82 mg/dL Normal 74-106 [facility] Comment on above: Performed By: #### T DAVONTE, LIPID, CMP #### [facility] [address] [place] [address] Dr. Kassy Rincon Potassium [Moles/Vol] 3.9 mmol/L Normal 3.5-5.1 [facility] Comment on above: Performed By: #### T DAVONTE, LIPID, CMP #### [facility] [address] [place] [address] Dr. Kassy Rincon Protein [Mass/Vol] 7.2 g/dL Normal 6.4-8.2 [facility] Comment on above: Performed By: #### T DAVONTE, LIPID, CMP #### [facility] [address] [place] [address] Dr. Kassy Rincno Sodium [Moles/Vol] 138 mmol/L Normal 136-145 [facility] Comment on above: Performed By: #### T DAVONTE, LIPID, CMP #### [facility] [address] [place] [address] Dr. Kassy Rincon Urea nitrogen [Mass/Vol] 13.0 mg/dL Normal 7.0-18.0 [facility] Comment on above: Performed By: #### T DAVONTE, LIPID, CMP #### [facility] [address] [place] [address] Dr. Kassy Rincon Urea nitrogen/Creatinin e [Mass ratio] 14.3 mg/mg Normal [facility] Comment on above: Performed By: #### T DAVONTE, LIPID, CMP #### [facility] [address] [place] [address] Dr. Kassy Rincon TSHon 07-09-2022 TSH 0.321 uIU/mL Critically low 0.358-3.740 [facility] Comment on above: Performed By: #### T DAVONTE, LIPID, CMP #### [facility] [address] [place] [address] Dr. Kassy Rincon UA RANDOM W/MICROSCOPICon BACTERIA NONE SEEN Normal NONE SEEN [facility] Comment on above: Performed By: #### U AMIC #### [facility] [address] [address] [address] Kassy Rincon Bilirubin Ql (U) Negative Normal NEGATIVE [facility] Comment on above: Performed By: #### U AMIC #### [facility] [address] [address] [address] Kassy Rincon CAST NONE SEEN Normal NONE SEEN [facility] Comment on above: Performed By: #### U AMIC #### [facility] [address] [address] [address] Kassy Rincon Clarity (U) CLEAR Normal CLEAR [facility] Comment on above: Performed By: #### U AMIC #### [facility] [address] [address] [address] Kassy Rincon Color (U) LT. YELLOW Normal YELLOW [facility] Comment on above: Performed By: #### U AMIC #### [facility] [address] [address] [address] Kassy Rincon Crystals LM Nom (Urine sed) NONE SEEN Normal NONE SEEN [facility] Comment on above: Performed By: #### U AMIC #### [facility] [address] [address] [address] Kassy Rincon Epithelial cells LM Ql (Urine sed) FEW Abnormal NONE SEEN /RARE [facility] Comment on above: Performed By: #### U AMIC #### [facility] [address] [address] [address] Kassy Rincon Glucose Ql (U) Negative Normal NEGATIVE [facility] Comment on above: Performed By: #### U AMIC #### [facility] [address] [address] [address] Kassy Rincon Hemoglobin Ql (U) Negative Normal NEGATIVE [facility] Comment on above: Performed By: #### U AMIC #### [facility] [address] [place] [address] Dr. Kassy Rincon Ketones Ql (U) Negative Normal NEGATIVE [facility] Comment on above: Performed By: #### U AMIC #### [facility] [address] [address] [address] Kassy Rincon LEUKOCYTES Negative Normal NEGATIVE [facility] Comment on above: Performed By: #### U AMIC #### [facility] [address] [address] [address] Kassy Rincon MUCOUS NONE SEEN Normal NONE SEEN [facility] Comment on above: Performed By: #### U AMIC #### [facility] [address] [address] [address] Kassy Rincon Nitrite Ql (U) Negative Normal NEGATIVE [facility] Comment on above: Performed By: #### U AMIC #### [facility] [address] [address] [address] Kassy Rincon pH (U) 6.0 [pH] Normal 5-9 [facility] Comment on above: Performed By: #### U AMIC #### [facility] [address] [place] [address] Dr. Kassy Rincon RBC NONE SEEN Abnormal 0-2 [facility] Comment on above: Performed By: #### U AMIC #### [facility] [address] [place] [address] Dr. Kassy Rincon SPEC GRAVITY <=1.005 Abnormal 1.005-<=1.025 [facility] Comment on above: Performed By: #### U AMIC #### [facility] [address] [place] [address] Dr. Kassy Rincon UA PROTEIN Negative Normal NEGATIVE/ TRACE [facility] Comment on above: Performed By: #### U AMIC #### [facility] [address] [place] [address] Dr. Kassy Rincon Urobilinogen Qn (U) 0.2 {Dia'U}/dL Normal 0.2 - 1.0 [facility] Comment on above: Performed By: #### U AMIC #### [facility] [address] [place] [address] Dr. Kassy Rincon WBC 0-2 Abnormal NONE SEEN [facility] Comment on above: Performed By: #### U AMIC #### [facility] [address] [place] [address] Dr. Kassy Rincon VITAMIN B12on 07-09-2022 Cobalamin (Vitamin B12) [Mass/Vol] 295.0 pg/mL Normal 193.0-986.0 [facility] Comment on above: Performed By: #### F T4, VITB12 #### [facility] [address] [address] [address] Kassy Rincon Vital Signs Date Time Vital Sign Value Performing Clinician Faci lity 07-19-2024 09:44-0400 Body height 170.2 cm Dahlia Tate [employer] CHECKER Work Phone: [facility] 07-19-2024 09:44-0400 Body mass index (BMI) [Ratio] 22.93 kg/m2 Dahliamoustapha Tate [employer] ST[employer] CHECKER Work Phone: [facility] 07-19-2024 09:44-0400 Body temperature 98.01 [degF] Dahliamoustapha Tate LOOM STOP CHECKER Work Phone: [facility] 07-19-2024 09:44-0400 Body weight 66.41 kg Dahlia Bebeto LOOM STOP CHECKER Work Phone: [facility] 07-19-2024 09:44-0400 Diastolic blood pressure 88 mm[Hg] Adhlia Bebeto LOOM STOP CHECKER Work Phone: [facility] 07-19-2024 09:44-0400 Heart rate 79 /min Dahlia Bebeto [employer]OM STOP CHECKER Work Phone: [facility] 07-19-2024 09:44-0400 Respiratory rate 18 /min Dahlia Bebeto [employer]OM ST[employer] CHECKER Work Phone: [facility] 07-19-2024 09:44-0400 SaO2% (BldA) [Mass fraction] 100 % Dahliamoustapha Tate LOOM STOP CHECKER Work Phone: [facility] 07-19-2024 09:44-0400 Systolic blood pressure 120 mm[Hg] Dahlia Bebeto LOOM STOP CHECKER Work Phone: [facility] Healthcare Encounters Encounter Date Encounter Type Care Provider Facility Start: 06-21-2025 End: 06-21-2025 Emergency department patient visit DAHLIA Davis [facility] Start: 05-21-2025 End: 05-21-2025 Emergency department patient visit DAHLIA Davis [facility] Start: 03-01-2025 End: 03-01-2025 Emergency department patient visit DAHLIA Davis [facility] Start: 10-15-2024 End: 10-15-2024 Emergency department patient visit DHALIA Davis [facility] Start: 09-16-2024 End: 09-16-2024 Emergency department patient visit DAHLIA J [facility] Start: 08-31-2024 End: 08-31-2024 Emergency department patient visit DAHLIA J [facility] Start: 08-22-2024 End: 08-22-2024 ambulatory [facility] Start: 07-19-2024 End: 07-19-2024 Bamboo flowsheet Dahlia Bebeto LOOM STOP CHECKER Work Phone: [facility] Start: 07-19-2024 End: 07-19-2024 Bamboo flowsheet Dahlia Bebeto LOOM STOP CHECKER Work Phone: [facility] Start: 07-19-2024 End: 07-19-2024 Office outpatient visit 25 minutes Dahlia Bebeto [employer] CHECKER Work Phone: [facility] Comment on above: ABBEY (generalized anx iety disorder) (CMS/HCC) (Primary Dx); Nausea and vomiting, unspecified vomiting type; Prolonged Q-T interval on ECG Start: 07-19-2024 End: 07-19-2024 ambulatory DAHLIA BEBETO Not Available Start: 07-15-2024 End: 07-15-2024 Emergency department patient visit NO PCP NO PCP [facility] Start: 06-27-2024 End: 06-28-2024 Emergency department patient visit LUIS HOLLAND [facility] Start: 07-10-2022 Encounter for genera l adult medical examination without abnormal findings BEE [employer]ER DAHLIA WEEKSHOLZ [facility] Start: 07-09-2022 End: 07-10-2022 ambulatory MATTHEW TATE Facility:[facility] Start: 07-09-2022 End: 07-10-2022 Encounter for general adult medical examination without abnormal findings MATTHEW TATE Facility:[facility] Plan of Treatment Date Care Activity Detail Author Start: 08-21-2024 End: 08-21-2024 Patient encounter procedure 08/21/2024 9:20 AM EDT Office Visit [facility] [address] [place] [id number] Dahlia Tate, LOOM STOP CHECKER [address] [place] [id number] [facility] Start: 07-19-2024 End: 07-19-2024 Patient encounter procedure 07/19/2024 9:40 AM EDT Office Visit [facility] [facility] [address] [place] [address] Dahlia Tate, LOOM STOP CHECKER [address] [place] [id number] Arrived [facility] Comment on above: Arrived Start: 07-16-2024 Influenza vaccination Influenza Vacc ine (#1) [facility] Payers Date Payer Category Payer Unknown [id number] 2018 Unknown [id number] 2018 Unknown [id number] 2001 Unknown [id number] 2.16.84 [id number] 2001 Unknown [id number] 2.16. [id number] 2001 Unknown [id number] 2.16. [id number] 2001 Unknown [id number] 2.16. [id number] 2001 Unknown [id number] 2.16.8 [id number] 2001 Unknown [id number] 2.16.8 [id number] 2001 Unknown [id number] 2.16.8 [id number] 2001 Unknown [id number] 2.16.8 [id number] 2001 Unknown [id number] 2.16.8 [id number] 1959 Unknown [id number] Social History Date Type Detail Facility Tobacco smoking stat [facility] Tobacco smoking consumption unknown [facility] Start: 2001 Sex assigned at Not on file [facility] Start: 07-19-2024 Gender identity Not on file [facility] Start: 07-19-2024 Tobacco smoking stat [facility] Smokes tobacco daily [facility] Start: 07-19-2024 Tobacco use and exposure Smokeless t obacco non-user [facility] Start: 07-19-2024 Alcoholic beverage intake Ex-drinker (finding) [facility] Start: 07-19-2024 History of Social function [facility] Start: 07-19-2024 Tobacco Comment vape [facility] Start: 07-19-2024 Alcohol Comment caffine: coffee 1-2 weekly [facility] Progress note 08-22-2024 Note Date & Type Note Facility 08-22-2024 Note MD Electrophysiology Consult Note MD Cardiology [facility] Reason for visit: Possible QT HPI: Padmini Ray is a 23 y.o. year old with past medical history of anxiety. Pt is being seen because of long Q-T waves seen on EKG while in ED on 07/15/24. Patient presented to ED with vomiting and dehydration, and EKG showed prolonged QT. Magnesium in ED was 1.6. Patient reports being in the ED three separate times in one month for concerns of vomiting and received anti-emetics each visit. Today, pt denies chest pain, sob, and palpatations. Patient notes one episode of syncope a few years ago, and said witnesses described seizure like activities during that episode. No episodes since. Family history significant for maternal aunt who had cardiac arrest. Paternal grandparents had heart problems - unsure of specific diagnoses. Patient currently vapes daily. Drinks alcohol socially. Smokes marijuana occasionally. PMH: No past medical history on file. PSH: No past surgical history on file. SH: Social Determinants of Health Tobacco Use: High Risk (10/15/2024) Received from [employer] Patient History Smoking Tobacco Use: Every Day Smokeless Tobacco Use: Never Passive Exposure: Not on file Alcohol Use: Not on file Financial Resource Strain: Not on file Food Insecurity: No Food Insecurity (09/16/2024) Received from [facility] [employer] Hunger Screening Within the past 12 months we worried whether our food would run out before we got money to buy more.: Never True Within the past 12 months the food we bought just didn't last and we didn't have money to get more.: Never True Transportation Needs: Not on file Physical Activity: Not on file Stress: Not on file Social Connections: Not on file Intimate Partner Violence: Not on file Depression: Not at risk (07/19/2024) Received from [facility], [facility] PHQ-2 Patient Health Questionnaire-2 Score: 0 Housing Stability: Not on file Utilities: Not on file Health Literacy: Not on file Allergies: No Known Allergies Weight: 65.8kg Visit Vitals BP 110/76 Pulse (!) 48 Ht 1.702 m (5' 7 ) Wt 65.8 kg (145 lb) SpO2 96% BMI 22.71 kg/m??? Smoking Status Never Assessed BSA 1.76 m??? Meds: Current Outpatient Medications on File Prior to Visit Medication Sig Dispense Refill busPIRone (Buspar) 5 mg tablet Take 5 mg by mouth twice a day. No current facility-administered medications on file prior to visit. ROS: Review of Systems Neurological: Positive for light-headedness. All other systems reviewed and are negative. Physical Exam: Constitutional General Appearance: well-nourished, well-developed, appears stated age Level of Distress: comfortable Psychiatric Mental Status: alert, normal affect Orientation: oriented to time, place, and person Insight: good judgement Eyes Lids and Conjunctivae: non-injected, no xanthelasma ENMT Ears: no lesions on external ear Nose: no lesions on external nose Oropharynx: no cyanosis, no pallor Neck Neck: supple, trachea midline Carotid Arteries: bilateral normal upstroke, no bruits Jugular Veins: normal jugular venous pressure Thyroid: not enlarged Lungs Respiratory Effort: unlabored Chest Exam: normal curvature, no thoracic deformity Auscultation: clear, no wheezing, no rales, no rhonchi Cardiovascular Rate And Rhythm: regular Heart Sounds: normal S1, normal s2, no gallop Systolic Murmur: not heard Diastolic Murmur: not heard Extremities: no cyanosis, no edema, no peripheral signs of emboli Peripheral Pulses Radial Pulse: normal Abdomen Inspection and Palpation: soft, non distended, no bruit, non tender Musculoskeletal Inspection: no joint swelling Neurologic Gait: normal gait Skin Inspection and Palpation: warm and dry Nails: no clubbing Labs: 07/01/24: CBC: WBC 6.8. RBC 4.25, Hgb 13.7, hematocrit 39.8, platelet 183 Chem: Na 138, K+ 3.2, Chloride 102, BUN 7, Cr 0.87, Glucose 107, Calcium 9.1, Mag 1.7, AST 12, ALT 19 EK08/22/24: 07/15/24: Diagnostic Imaging: No images are attached to the encounter. Assessment and Plan: 1.) Possible long QT -Patient had long QT noted on EKG from ED. EKG today shows no prolonged QT. -Reviewed family history with patient. Asked that she gather more information regarding family history for follow up. -Genetic testing to be ordered. -Advised patient to avoid any QT-prolonging medications, gave patient online resource on medications to avoid. Will follow up on results of genetic testing. Clau Villatoro PA-C [facility] Available 7-5pm via [employer] Pager #: [phone] By using the attestations below, the signing clinician agrees that I have read and verify that the documentation has been personally reviewed by me and ensure that the documentation accurately reflects the encounter. GC: I performed the hale portion(s) of the (more content not included)... [facility] Progress note 08-22-2024 Note Date & Type Note Facility 08-22-2024 Note UT Electrophysiology Consult Note MD Cardiology [facility] Reason for visit: Possible QT HPI: Padmini Ray is a 23 y.o. year old with past medical history of anxiety. Pt is being seen because of long Q-T waves seen on EKG while in ED on 07/15/24. Patient presented to ED with vomiting and dehydration, and EKG showed prolonged QT. Magnesium in ED was 1.6. Patient reports being in the ED three separate times in one month for concerns of vomiting and received anti-emetics each visit. Today, pt denies chest pain, sob, and palpatations. Patient notes one episode of syncope a few years ago, and said witnesses described seizure like activities during that episode. No episodes since. Family history significant for maternal aunt who had cardiac arrest. Paternal grandparents had heart problems - unsure of specific diagnoses. Patient currently vapes daily. Drinks alcohol socially. Smokes marijuana occasionally. PMH: No past medical history on file. PSH: No past surgical history on file. SH: Social Determinants of Health Tobacco Use: Unknown (08/22/2024) Patient History Smoking Tobacco Use: Never Assessed Smokeless Tobacco Use: Never Passive Exposure: Not on file Alcohol Use: Not on file Financial Resource Strain: Not on file Food Insecurity: Not on file Transportation Needs: Not on file Physical Activity: Not on file Stress: Not on file Social Connections: Not on file Intimate Partner Violence: Not on file Depression: Not on file Housing Stability: Not on file Utilities: Not on file Allergies: No Known Allergies Weight: 65.8kg Visit Vitals BP 110/76 Pulse (!) 48 Ht 1.702 m (5' 7 ) Wt 65.8 kg (145 lb) SpO2 96% BMI 22.71 kg/m??? Smoking Status Never Assessed BSA 1.76 m??? Meds: Current Outpatient Medications on File Prior to Visit Medication Sig Dispense Refill busPIRone (Buspar) 5 mg tablet Take 5 mg by mouth twice a day. No current facility-administered medications on file prior to visit. ROS: Review of Systems Neurological: Positive for light-headedness. All other systems reviewed and are negative. Physical Exam: Constitutional General Appearance: well-nourished, well-developed, appears stated age Level of Distress: comfortable Psychiatric Mental Status: alert, normal affect Orientation: oriented to time, place, and person Insight: good judgement Eyes Lids and Conjunctivae: non-injected, no xanthelasma ENMT Ears: no lesions on external ear Nose: no lesions on external nose Oropharynx: no cyanosis, no pallor Neck Neck: supple, trachea midline Carotid Arteries: bilateral normal upstroke, no bruits Jugular Veins: normal jugular venous pressure Thyroid: not enlarged Lungs Respiratory Effort: unlabored Chest Exam: normal curvature, no thoracic deformity Auscultation: clear, no wheezing, no rales, no rhonchi Cardiovascular Rate And Rhythm: regular Heart Sounds: normal S1, normal s2, no gallop Systolic Murmur: not heard Diastolic Murmur: not heard Extremities: no cyanosis, no edema, no peripheral signs of emboli Peripheral Pulses Radial Pulse: normal Abdomen Inspection and Palpation: soft, non distended, no bruit, non tender Musculoskeletal Inspection: no joint swelling Neurologic Gait: normal gait Skin Inspection and Palpation: warm and dry Nails: no clubbing Labs: 07/01/24: CBC: WBC 6.8. RBC 4.25, Hgb 13.7, hematocrit 39.8, platelet 183 Chem: Na 138, K+ 3.2, Chloride 102, BUN 7, Cr 0.87, Glucose 107, Calcium 9.1, Mag 1.7, AST 12, ALT 19 EK08/22/24: 07/15/24: Diagnostic Imaging: No images are attached to the encounter. Assessment and Plan: 1.) Possible long QT -Patient had long QT noted on EKG from ED. EKG today shows no prolonged QT. -Reviewed family history with patient. Asked that she gather more information regarding family history for follow up. -Genetic testing to be ordered. -Advised patient to avoid any QT-prolonging medications, gave patient online resource on medications to avoid. Will follow up on results of genetic testing. Clau Villatoro PA-C [facility] Available 7-5pm via [employer] Pager #: [phone] [facility] History of Present illness Narrative 07-19-2024 Dahlia Tate, MIMI - 07/19/2024 10:59 AM Ginger Tate, MIMI - 07/19/2024 10:58 AM Ginger Tate, MIMI - 07/19/2024 10:57 AM EDTHDADA BARBOSA - 07/19/2024 9:40 AM EDT Note Date & Type Note Facility 07-19-2024 History of Presen t illness Narrative Associated Problem(s): Prolonged Q-T interval on ECG At this point we will have pt see Cardiology for further evaluation Especially d/t if this truly exists will have an effect on medications we use for treatment Associated Problem(s): ABBEY (generalized anxiety disorder) ([facility]) D/t possible prolonged QT interval, I will trial on Buspar BID Fu in 4 weeks Associated Problem(s): Nausea and vomiting Unclear if component of anxiety No current symptoms at this time Pt states she was diagnosed with prolong QT syndrome. Mom states that her hands were numb before going er. Pt had no other symptoms other than nausea, vomiting, and diarrhea randomly that lead her to the ER multiple times with dehydration. She was recommended to get her anxiety under controlled as well. Images from the original note were not included. Padmini Ray is a 23 y.o. female presents with chief complaint of No chief complaint on file. HPI: Here for ER fu. Was last seen in practice in 2021. She has been to the ER 3 times in the last month. With nausea occ vomiting. She is not having abd pain. Does feel she has anxiety, and has been treated in the past for this, but not recently. When she was at [facility] ER within the last week, had EKG that was noted prolonged QT interval, also noted to have elyte abnormals, and UTI, was treated with rocephin no home atb, denies any urinary c/o at this time. Presents today for fu Denies chest pain/pressure, dizziness or lightheadness, no chest pain, heart palpitations SUBJECTIVE: MEDICATIONS: No current outpatient medications ALLERGIES: No Known Allergies REVIEW OF SYMPTOMS: Review of Systems Constitutional: Negative for appetite change, chills and fever. HENT: Negative for congestion, ear pain and sore throat. Eyes: Negative for pain, discharge, redness and visual disturbance. Respiratory: Negative for cough, shortness of breath and wheezing. Cardiovascular: Negative for chest pain, palpitations and leg swelling. Gastrointestinal: Positive for nausea and vomiting. Negative for abdominal pain, blood in stool, constipation and diarrhea. Genitourinary: Negative for difficulty urinating, dysuria and frequency. Musculoskeletal: Negative for arthralgias, back pain, joint swelling and myalgias. Skin: Negative for rash and wound. Neurological: Negative for dizziness, tremors, seizures, syncope and headaches. Psychiatric/Behavioral: Negative for behavioral problems, self-injury and suicidal ideas. The patient is nervous/anxious. Hematological: Does not bruise/bleed easily. Endocrine: Negative for polydipsia, polyphagia and polyuria. Allergic/Immunologic: Negative for environmental allergies and food allergies. PAST MEDICAL HISTORY History reviewed. No pertinent past medical history. History reviewed. No pertinent surgical history. family history is not on file. OBJECTIVE: Visit Vitals BP 120/88 (BP Location: Left arm, Patient Position: Sitting, BP Cuff Size: Adult) Pulse 79 Temp 98 F (Temporal) Resp 18 Ht 5' 7 Wt 146 lb 6.4 oz SpO2 100% BMI 22.93 kg/m Smoking Status Every Day BSA 1.77 m Physical Exam Vitals and nursing note reviewed. Constitutional: General: She is not in acute distress. Appearance: Normal appearance. She is normal weight. She is not ill-appearing. HENT: Head: Normocephalic and atraumatic. Right Ear: Tympanic membrane, ear canal and external ear normal. Left Ear: Tympanic membrane, ear canal and external ear normal. Nose: Nose normal. No congestion or rhinorrhea. Mouth/Throat: Mouth: Mucous membranes are moist. Pharynx: No oropharyngeal exudate or posterior oropharyngeal erythema. Eyes: Extraocular Movements: Extraocular movements intact. Conjunctiva/sclera: Conjunctivae normal. Neck: Vascular: No carotid bruit. Cardiovascular: Rate and Rhythm: Normal rate and regular rhythm. Pulses: Normal pulses. Heart sounds: Normal heart sounds. Pulmonary: Effort: Pulmonary effort is normal. Breath sounds: Normal breath sounds. Abdominal: General: Bowel sounds are normal. There is no distension. Palpations: Abdomen is soft. There is no mass. Tenderness: There is no abdominal tenderness. Musculoskeletal: General: Normal range of motion. Cervical back: Normal range of motion and neck supple. Right lower leg: No edema. Left lower leg: No edema. Lymphadenopathy: Cervical: No cervical adenopathy. Skin: General: Skin is warm and dry. Capillary Refill: Capillary refill takes 2 to 3 seconds. Findings: No rash. Comments: Pale-pink, dark circles under eyes Neurological: General: No focal deficit present. Mental Status: She is alert and oriented to person, place, and time. Psychiatric: Mood and Affect: Mood normal. Behavior: Behavior normal. Thought Content: Thought content normal. Judgment: Judgment normal. ASSESSMENT AND PLAN: No follow-ups on file. Problem List Items Addressed This Visit ABBEY (generalized anxiety disorder) (CMS/HCC) - Primary D/t possible prolonged QT interval, I will trial on Buspar BID Fu in 4 weeks Relevant Medications busPIRone (Buspar) 5 MG tablet Nausea and vomiting Unclear if component of anxiety No current symptoms at this time Prolonged Q-T interval on ECG At this point we will have pt see Cardiology for further evaluation Especially d/t if this truly exists will have an effect on medications we use for treatment Relevant Orders Ambulatory referral to Cardiology documented in this encounter [facility] Evaluation note Note Date & Type Note Facility Evaluation note Diagnosis ABBEY (generalized anxiety disorder) (CMS/HCC)- Primary Generalized anxiety disorder Nausea and vomiting, unspecified vomiting type Prolonged Q-T interval on ECG Nonspecific abnormal electrocardiogram (ECG) (EKG) documented in this encounter [facility] Reason for referral (narrative) Consultation (Routine) - Pending Review Note Date & Type Note Facility Reason for referral (narrati ve) Specialty Diagnoses / Procedures Referred By Contac t Referred To Contact Cardiology Diagnoses Prolonged Q-T interval on ECG Procedures NE OFFICE/OUTPATIENT NEW HIGH MDM 60 MINUTES Dahlia Tate NP [address] [place] [address] Blayne Lawrence MD [address] [place] [address] Referral ID Status Reason Start Date Expiration Date Visits Requested Visits Authorized [id number] Pending Review Specialty Services Required 07/19/2024 01/15/2025 1 1 Scheduling Instructions Does not need STAT, however would like soonest appt available [facility] Summary Purpose Family History No Family History Records FoundNo Family History Records FoundNo Family History Records FoundNo Family History Records Found Advance Directives No Advanced Directives Records FoundNo Advanced Directives Records FoundNo Advanced Directives Records FoundNo Advanced Directives Records Found Additional Source Comments INFORMATION SOURCE (unrecogn ized section and content) DATE CREATED AUTHOR 07/11/2022 [facility] DATE CREATED AUTHOR AUTHOR'S ORGANIZ ATION 07/20/2024 [facility] EPIC DATE CREATED AUTHOR AUTHOR'S ORGANIZ ATION 11/06/2024 [facility] DATE CREATED AUTHOR AUTHOR'S ORGANIZ ATION 06/23/2025 [facility] Care Teams (unrecognized sec tion and content) Principal Quality Engineer Relationship Specialty Start Date End Date Sher Easley MD [address] [place] [address] PCP - General Family Medicine 07/03/24 Dahlia Tate NP [address] [place] [address] Nurse Practitioner Family Medicine 07/03/24 Principal Quality Engineer Relationship Specialty Start Date End Date Sher Easley MD [address] [place] [address] PCP - General Family Medicine 07/03/24 Dahlia Tate NP [address] [place] [address] Nurse Practitioner Family Medicine 07/03/24 FOR RECORDS PERTAINING TO PATIENTS WHO ARE [...] BE BASED ON THE PRIMARY CLINICAL RECORDS. [facility] [employer] provides no warranty or guarantee of the accuracy or completeness of information in this document.
--- NOTE | 2025-08-28 11:32 | ED_ITS ---
HPI HPI - General Adult General Chief complaint: Nausea/Vomiting/Diarrhea Stated complaint: VOMITING DEHYDRATION Time Seen by Provider: 08/28/25 11:21 Source: patient Mode of arrival: walk-in Limitations: no limitations History of Present Illness HPI narrative: 24-year-old female presents for nausea vomiting diarrhea. She states it started about 9:00 this morning and last night she drank a lot of alcohol. She also smokes marijuana. No fever or hematemesis. Related Data Previous Rx's ?Medication ?Instructions ?Recorded ondansetron 4 mg disintegrating 4 mg PO Q6H PRN nausea and 08/28/25 tablet vomiting #20 tabs Allergies Allergy/AdvReac Type Severity Reaction Status Date / Time No Known Drug Allergies Allergy Verified 08/28/25 11:31 Review of Systems ROS Narrative A ten point review of systems is negative except as noted above. PFSH PFSH Social History Little interest or pleasure in doing things: not at all Feeling down, depressed, or hopeless: not at all Exam Narrative Exam Narrative: Nurses note and vital signs reviewed and patient is not hypoxic. General:The patient appears well and in no apparent distress.Patient is resting comfortably on cart. Skin:Warm, dry, pallor noted.There is no rash noted. Head:Normocephalic, atraumatic Eye: Normal conjunctiva, no drainage Ears, Nose, Mouth, and Throat: oral mucosa is moist. Nares patent. Cardiovascular:Regular Rate and Rhythm Respiratory:Patient is in no distress, no accessory muscle use, lungs are clear to auscultation, no wheezing, rales or rhonchi Back:non-tender GI: Soft and no tenderness on palpation Musculoskeletal: The patient has no evidence of calf tenderness, no pitting edema, symmetrical pulses noted bilaterally Neurological:A&O, normal speech Psychiatric:Cooperative Constitutional Vital Signs, click to edit/add: Last Vital Signs Temp 97.4 F L 08/28/25 11: Pulse 79 08/28/25 11:25 Resp 18 08/28/25 11: BP 139/106 H 08/28/25 11:25 Pulse Ox 100 08/28/25 11:25 O2 Del Method Room Air 08/28/25 11:25 Course Vital Signs Vital signs: Vital Signs Temperature 97.4 F L 08/28/25 11:25 Pulse Rate 79 08/28/25 11:25 Respiratory Rate 18 08/28/25 11:25 Blood Pressure 139/106 H 08/28/25 11:25 Pulse Oximetry 100 08/28/25 11:25 Oxygen Delivery Method Room Air 08/28/25 11:25 Temperature 97.4 F L 08/28/25 11:25 Pulse Rate 79 08/28/25 11:25 Respiratory Rate 18 08/28/25 11:25 Blood Pressure 139/106 H 08/28/25 11:25 Pulse Oximetry 100 08/28/25 11:25 Oxygen Delivery Method Room Air 08/28/25 11:25 Medical Decision Making MDM Narrative Medical decision making narrative: Her workup is negative. She is not . She was given IV fluids and Zofran and is feeling somewhat improved and is discharged home with a prescription for Zofran. Treatment diagnosis and follow-up were discussed with the patient and her mother. Differential Diagnosis Differential Diagnosis: Dehydration, nausea and vomiting, alcohol abuse Lab Data Lab results reviewed: Yes I reviewed the patient's lab results Labs: Lab Results 08/28/25 Range/Units 11:47 WBC 9.7 (4.0-11.0) 10^3/uL RBC 4.28 (4.20-5.40) 10^6/uL Hgb 14.2 (12.0-16.0) g/dL Hct 40.3 (36.0-48.0) % MCV 94.2 (81.0-99.0) fL MCH 33.2 (26.7-34.0) pg MCHC 35.2 (29.9-35.2) g/dL RDW 12.6 (11.0-15.0) % Plt Count 190 (150-450) 10^3/uL MPV 11.6 (9.5-13.5) fL Neut % (Auto) 83.3 H (43.0-75.0) % Lymph % (Auto) 11.3 L (20.5-60.0) % [place] % (Auto) 2.8 (1.7-12.0) % Eos % (Auto) 0.3 L (0.9-7.0) % Baso % (Auto) 0.6 (0.2-2.0) % Neut # (Auto) 8.1 H (1.4-6.5) 10^3/uL Lymph # (Auto) 1.1 L (1.2-3.8) 10^3/uL [place] # (Auto) 0.3 (0.3-0.8) 10^3/uL Eos # (Auto) 0.0 (0.0-0.7) 10^3/uL Baso # (Auto) 0.1 (0.0-0.1) 10^3/uL Abs Immat Gran (auto) 0.17 H (0.00-0.03) 10^3/uL Imm/Tot Granulo (auto) 1.7 H (0.0-0.5) % Sodium 143 (136-145) mmol/L Potassium 3.9 (3.5-5.1) mmol/L Chloride 106 (98-107) mmol/L Carbon Dioxide 24.0 (21.0-32.0) mmol/L Anion Gap 16.9 BUN 8.0 (7.0-18.0) mg/dL Creatinine 0.88 (0.55-1.02) mg/dL Est GFR ( Amer) >60 (>=60 mL/min/1.73m^2) Est GFR (Non-Af Amer) >60 (>=60 mL/min/1.73m^2) BUN/Creatinine Ratio 9.1 Glucose 142 H (74-106) mg/dL Calcium 9.1 (8.5-10.1) mg/dL Serum HCG, Qual Negative (NEGATIVE) Discharge Plan Discharge Chief Complaint: Nausea/Vomiting/Diarrhea Clinical Impression: Nausea & vomiting Patient Disposition: Home, Self-Care Time of Disposition Decision: 12:30 Condition: Good Mode of Transportation: Private Vehicle Prescriptions / Home Meds: New ondansetron 4 mg tablet,disintegrating 4 mg PO Q6H PRN (Reason: nausea and vomiting) Qty: 20 0RF Print Language: American Instructions: Acute Nausea and Vomiting (ED) Referrals: Dahlia Tate NP [Primary Care Provider, Family Practice] - 1 week
[2025-08-28] MEDS: 0.9 % SODIUM CHLORIDE 1,000 ML 1000 ML IV (11:51)
[2025-08-28 11:59] LABS: Anion Gap 16.9; Blood Urea Nitrogen 8.0 mg/dL (7.0-18.0); Calcium 9.1 mg/dL (8.5-10.1); Carbon Dioxide 24.0 mmol/L (21.0-32.0); Chloride 106 mmol/L (98-107); Estimated GFR (African America >60 (>=60 mL/min/1.73m^2); Estimated GFR (Non-African Ame >60 (>=60 mL/min/1.73m^2); Glucose 142 mg/dL (74-106); Potassium 3.9 mmol/L (3.5-5.1); Sodium 143 mmol/L (136-145)
[2025-08-28 12:02] LABS: Hematocrit 40.3 % (36.0-48.0); Hemoglobin 14.2 g/dL (12.0-16.0); Immature Granulocytes Abs Auto 0.17 10^3/uL (0.00-0.03); Immature Granulocytes Pct Auto 1.7 % (0.0-0.5); Lymphocytes Absolute Auto 1.1 10^3/uL (1.2-3.8); Mean Corpuscular HGB Conc 35.2 g/dL (29.9-35.2); Mean Corpuscular Hemoglobin 33.2 pg (26.7-34.0); Mean Corpuscular Volume 94.2 fL (81.0-99.0); Platelet Count 190 10^3/uL (150-450); Red Blood Count 4.28 10^6/uL (4.20-5.40); White Blood Count 9.7 10^3/uL (4.0-11.0)
== END 2025-08-28 12:48 | disposition home or self-care (01) ==
PROVIDERS: Emergency Provider Emergency Medicine; PCP Nurse Practitioner
DX: R11.2 Nausea with vomiting, unspecified (principal)
CPT/HCPCS: 36415; 80048; 84703; 85025; 96374; 99284; J2405